=== PATIENT | female | born 1950 | race Caucasian/White ===

== ENCOUNTER → 2016-10-14 | Outpatient (CLI) | payer BC ==
[~2016-10-14] MED LIST: ADVIN25050 INH; ALBUAER2 INH; CPR500 PO; CZR50 PO; METR-163 PO; PARO1TAB27 PO; PRLSR20; PRM625 PO; SYN50 PO
[2016-10-14 12:47] LABS: BASO % 0.3 %; BASO ABS # 0.02 K/uL (0-0.2); COMPLETE YES; EOS % 2.2 %; HEMATOCRIT 38.4 % (37-47); IG% 0.5 %; LYMPH % 28.8 %; LYMPH ABS # 1.83 K/uL (1.2-3.4); MEAN CELL VOLUME 87.7 fL (80-100); MEAN CORPUSCULAR HEMOGLOBIN 30.8 pg (25-34); MEAN CORPUSCULAR HGB CONC 35.2 g/dl (32-36); MEAN PLATELET VOLUME 9.8 fL (7.4-10.4); MONO % 7.1 %; NEUT % 61.1 %; PLATELET COUNT 113 K/uL (130-400); RED BLOOD COUNT 4.38 M/uL (4.2-5.4); WHITE BLOOD COUNT 6.35 K/uL (4.8-10.8)
[2016-10-14 12:57] LABS: ALT/SGPT 42 U/L (12-78); BLOOD UREA NITROGEN 11 mg/dl (7-18); CALCIUM 9.3 mg/dl (8.5-10.1); CARBON DIOXIDE 26 mmol/L (21-32); CHLORIDE 105 mmol/L (98-107); CHOLESTEROL 175 mg/dl (0-200); CREATININE 0.64 mg/dl (0.60-1.20); GLUCOSE 114 mg/dl (70-99); POTASSIUM 3.9 mmol/L (3.5-5.1); SODIUM 140 mmol/L (136-145); TRIGLYCERIDES 73 mg/dl (0-150); VERY LOW DENSITY LIPOPROT CALC 15 mg/dl
[2016-10-14 13:00] LABS: ALKALINE PHOSPHATASE 126 U/L (45-117); AST/SGOT 33 U/L (15-37); CHOLESTEROL/HDL RATIO 2.1; HDL CHOLESTEROL 82 mg/dl; LDL CHOLESTEROL CALCULATED 78 mg/dl
[2016-10-14 13:22] LABS: ESTIMATED AVERAGE GLUCOSE 154 mg/dl; HA1C FLAG Normal (Normal)
== END | disposition home or self-care (01) ==
LOC: C.LAB1850 11:32
PROVIDERS: ATTEND Internal Medicine Pulmonary Disease
DX: J45.909 Unspecified asthma, uncomplicated (principal); E78.5 Hyperlipidemia, unspecified; I10 Essential (primary) hypertension; E03.9 Hypothyroidism, unspecified; K76.0 Fatty (change of) liver, not elsewhere classified; E11.9 Type 2 diabetes mellitus without complications

== ENCOUNTER → 2017-04-23 | Outpatient (CLI) | payer BC ==
--- NOTE | 2017-04-23 14:30 | DIAGNOSTIC IMAGING REPORT ---
THYROID ULTRASONOGRAPHY CLINICAL HISTORY: E78.5 [id number] COMPARISON STUDY: 04/14/2006 FINDINGS: The right lobe of thyroid measures 35 x 12 x 12 mm. The left lobe measures 28 x 9 x 9 mm. But close are heterogeneous in echotexture. No focal nodules are visualized. IMPRESSION: Heterogeneous thyroid echotexture. No focal thyroid nodules are visualized Electronically signed by: Amor Washington M.D. 04/23/2017 2:29 PM Dictated Date/Time: 04/23/2017 2:27 PM
== END | disposition home or self-care (01) ==
LOC: C.ULTR 13:25
PROVIDERS: ATTEND Internal Medicine Pulmonary Disease
DX: E03.9 Hypothyroidism, unspecified (principal); E78.5 Hyperlipidemia, unspecified

== ENCOUNTER → 2017-08-10 | Outpatient (CLI) | payer BC ==
--- NOTE | 2017-08-10 16:34 | DIAGNOSTIC IMAGING REPORT ---
CHEST 2 VIEWS ROUTINE CLINICAL HISTORY: R05 [id number] COMPARISON STUDY: 01/01/2016 FINDINGS: The cardiac and mediastinal contours are normal. There is no evidence of focal pulmonary consolidation. There is no evidence of failure. No pleural effusions are visualized.[ IMPRESSION: No active disease in the chest. Electronically signed by: Amor Washington M.D. 08/10/2017 4:33 PM Dictated Date/Time: 08/10/2017 4:33 PM
== END | disposition home or self-care (01) ==
LOC: C.RAD1850 16:11
PROVIDERS: ATTEND Physician Assistant Medical
DX: R05 Cough (principal)

== ENCOUNTER → 2017-10-20 | Outpatient (CLI) | payer BC ==
[2017-10-20 14:41] LABS: BASO % 0.6 %; BASO ABS # 0.04 K/uL (0-0.2); EOS % 3.6 %; EOS ABS # 0.23 K/uL (0-0.5); HEMATOCRIT 41.2 % (37-47); HEMOGLOBIN 14.3 g/dL (12.0-16.0); IG# 0.02 K/uL (0.00-0.02); LYMPH % 29.9 %; MEAN CELL VOLUME 89.6 fL (80-100); MEAN CORPUSCULAR HEMOGLOBIN 31.1 pg (25-34); MEAN CORPUSCULAR HGB CONC 34.7 g/dl (32-36); MEAN PLATELET VOLUME 10.4 fL (7.4-10.4); MONO % 8.3 %; MONO ABS # 0.53 K/uL (0.11-0.59); NEUT % 57.3 %; NEUT ABS # 3.64 K/uL (1.4-6.5); PLATELET COUNT 112 K/uL (130-400); RED CELL DISTRIBUTION WIDTH CV 13.4 % (11.5-14.5); RED CELL DISTRIBUTION WIDTH SD 43.5 fL (36.4-46.3); WHITE BLOOD COUNT 6.36 K/uL (4.8-10.8)
[2017-10-20 15:03] LABS: ALBUMIN 3.6 gm/dl (3.4-5.0); ALT/SGPT 53 U/L (12-78); AST/SGOT 50 U/L (15-37); BLOOD UREA NITROGEN 11 mg/dl (7-18); CALCIUM 9.1 mg/dl (8.5-10.1); CARBON DIOXIDE 26 mmol/L (21-32); GLUCOSE 131 mg/dl (70-99); POTASSIUM 4.1 mmol/L (3.5-5.1); SODIUM 138 mmol/L (136-145)
[2017-10-20 15:13] LABS: ALKALINE PHOSPHATASE 143 U/L (45-117); CHOLESTEROL 165 mg/dl (0-200); LDL CHOLESTEROL CALCULATED 76 mg/dl; TOTAL PROTEIN 7.9 gm/dl (6.4-8.2)
[2017-10-21 05:49] LABS: HEMOGLOBIN A1C 7.1 % (4.5-5.6)
== END | disposition home or self-care (01) ==
LOC: C.LAB1850 12:47
PROVIDERS: ATTEND Internal Medicine Pulmonary Disease
DX: J45.909 Unspecified asthma, uncomplicated (principal); E78.5 Hyperlipidemia, unspecified; I10 Essential (primary) hypertension; E03.9 Hypothyroidism, unspecified; F32.9 Major depressive disorder, single episode, unspecified; E11.9 Type 2 diabetes mellitus without complications; D69.6 Thrombocytopenia, unspecified; J30.9 Allergic rhinitis, unspecified; R73.9 Hyperglycemia, unspecified; B02.9 Zoster without complications

== ENCOUNTER 2021-04-03 13:46 | Inpatient (IN) ==
[2021-04-03] MEDS ORDERED: ONDANSETRON INJ 2 MG/ML 2 ML VIAL IV STA (14:38)
[2021-04-03] MEDS ORDERED: MoRPHine SULFATE 4 MG/ML 1 ML CARP\\VIAL IV STA (14:38)
--- NOTE | 2021-04-03 14:45 | Emergency Department Note ---
Impression & Plan Fall, Left humeral fracture, Acetabulum fracture, left, Closed fracture of inferior pubic ramus ED Provider Note Provider: Harish Brock MD DATE OF SERVICE: 04/03/2021 CHIEF COMPLAINT: Fall HISTORY OF PRESENT ILLNESS: Patient is a 70-year-old female history of diabetes, hyperlipidemia, hypertension, fatty liver, and thrombocytopenia presenting here today after fall. Patient states she was rushing around to get ready to leave the house and lost her balance and fell onto her left side around 1230. Called her phone around 1:00 and call for help. States has been able to ambulate since then. Denies striking her head to her knowledge denies any loss of consciousness. States she is little short of breath she believes likely to have pain as she has not had anything for pain. Significant pain in the left shoulder, wrist, left hip and groin region. Patient denies any numbness or ti ngling extremities. Denies headache or dizziness. Denies neck pain or chest pain. Denies significant abdominal pain but pain in the left hip and left groin region. Patient denies a history of fractures. Patient states that she is highly allergic to codeine but has received morphine without issue in the past. Patient denies use of aspirin, Plavix, or other anticoagulants. She does report she occasionally has a history of some low platelets from some liver disease. REVIEW OF SYSTEMS: A total of 10 review of systems was obtained and negative except as stated above in the HPI. PAST MEDICAL HISTORY: As noted above MEDICATIONS: Reviewed home medications SOCIAL HISTORY: Lives at home PHYSICAL EXAM: GENERAL: alert and oriented laying on the stretcher appears somewhat uncomfortable. Sling to the left upper arm. Head: normocephalic and atraumatic EYES: No injection, discharge or icterus. NECK: Trachea midline. Supple without posterior cervical tenderness. ENT: Mucous membranes pink and moist. LUNGS: Airway patent. No retractions. Breath sounds clear with good air entry bilaterally. HEART: Regular rate and rhythm. No chest wall tenderness ABDOMEN: Soft and non-tender except for some mild tenderness left inguinal region. Not peritoneal. No rebound or guarding. BACK: No bilateral flank tenderness. SKIN: Acyanotic, warm, dry EXTREMITIES: Without swelling, tenderness or deformity except for some pain in the left hip and inguinal region and pain on ROM of the left hip. Soft compartments of the left lower leg without tenderness of the left knee, lower leg, ankle, or foot. There is minimal tenderness of the left wrist with soft compartments of left forearm and no tenderness of the left elbow. There is significant tenderness and some swelling around the anterior left shoulder with underlying bruises or cuts. 2+ bilateral DP pulses and 2+ left radial pulse. NEUROLOGICAL: No focal deficits. No aphasia. No facial droop or slurred speech. Normal strength and tone in the extremities. Sensation to gross touch normal although complains of little bit of tingling in her left fingers. EK beats. Normal sinus rhythm. No PVC or PAC. No acute ST segment eleva tion or depression noted with a QTC of 462. CONTINUOUS CARDIAC MONITORING: was ordered and showed a heart rate of 70s to 90s bpm in normal sinus rhythm GCS 15. Patient's laboratory studies and imaging reviewed. Differential includes Fracture, dislocation, contusion, intra-abdominal, pneumothorax, intrathoracic, intracranial, neurologic, compartment syndrome, rhabdomyolysis, as well as other pathologies. IMPRESSION/MEDICAL DECISION MAKING: Patient presents with what sounds like mechanical fall to ground today. History of low platelets and continued low today. Given this although no LOC and no significant coagulants to complete a CT of the head of the CT abdomen pelvis. CT hip completed with a question of possible occult fracture in this region given her pain with inconclusive x-rays. Significant left proximal humerus fracture noted. Soft compartments evidence of compartment syndrome on exam here today. Patient denies significant chest wall tenderness I doubt occult rib frac ture or lung or thoracic injury. Blood work here without other significant abnormality. Given some morphine which is tolerable for pain. No neurovascular compromise obvious in the extremities particularly the left upper and lower that are injured beyond some slight tingling in her fingers but feels gross sensation able move the hand well. X-rays and CT results per radiology are reviewed. Patient is not hypotensive and there is no evidence of significant anemia. Patient states she saw Dr. 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 A 2.2 cm anterior displaced left proximal humeral fracture on xray and on the left acetabular fracture and mild inferior pubic rami fracture noted on the CT scans. Discussed with orthopedics this finding who reviewed the films. Patients with both left-sided injuries not in a position to go home. Sling to left upper arm will be applied in a Velcro thumb spica splint to the left arm as there is some slight tenderness in the left snuffbox although no apparent fracture on the x-rays. Orthopedics recommended nonweightbearing status in the left side. States that the shoulder will likely need surgical repair and preplanning CT would be beneficial here; this was ordered for planning purposes for orthopedics. Orthopedics requested the patient be n.p.o. at midnight for possible surgical repair over the next day or 2of the shoulder. Discussed and the patient agrees she is unable go home as she cannot use her left arm or leg. For this and pain control the hospitalist be consulted. DIAGNOSIS: Fall, left proximal humeral fracture, left acetabular fracture, left inferior pubic rami fracture DISPOSITION: Hospitalist will evaluate Patient was agreeable with this plan. Past Med/Surg History Medical History (Updated 04/03/21 @ 18:12 by Harish Brock M.D.) Anemia with low platelet count per pt platelet number is 89 as of 04/2019 Asthma inhaler daily/prn Depression Diabetes mellitus, type 2 per pt diet controlled Fatty liver Hyperlipidemia Hypertension Hypothyroidism Osteoarthritis Shakiness per pt in her hands Surgical History H/O arthroscopy of left knee meniscus repair H/O colonoscopy H/O oral surgery gum sx History of cholecystectomy History of surgery on arm benign lump removed off left arm History of tonsillectomy History of tooth extraction History of total abdominal hysterectomy and bilateral salpingo-oophorectomy History of wisdom tooth extraction Family History Mother Coronary heart disease Other No family history of adverse response to anesthesia Social History Smoking Status: Never smoker Second Hand Exposure: Yes (work environment); Hx Alcohol Use: No Hx Substance Use: No Preferred Language: Georgian Communication Ability: Effective 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 Beliefs That Will Affect Care: None marital status: / Current Living Situation: Alone current occupational status: retired Feels Safe at Home: Yes Assistive Devices: Glasses Allergies Allergies Allergy/AdvReac Type Severity Reaction Status Date / Time codeine Allergy Severe throat Verified 04/03/21 17:51 swelling/hives/dizziness celecoxib Allergy Intermediate Hives Verified 04/03/21 17:51 Sulfa (Sulfonamide Allergy Intermediate Hives Verified 04/03/21 17:51 Antibiotics) Home Meds Home Medications Medication Instructions Recorded Confirmed docusate sodium 100 mg tablet 100 mg PO BID 07/22/19 10/29/20 multivit with 1 tab PO 1200 07/22/19 10/29/20 hawsssnd-gxzm-TZ-lutein 8 mg iron-400 mcg-300 mcg tablet (Centrum Silver Women) Previous Rx's Medication Instructions Recorded levothyroxine 100 mcg capsule 100 mcg PO QAM #90 cap 01/19/20 paroxetine HCl 20 mg tablet 20 mg PO HS #90 tab 01/19/20 albuterol sulfate 90 mcg/actuation 2 puff INH Q6H PRN #8.5 g 04/26/20 aerosol inhaler (Ventolin HFA) atorvastatin 10 mg tablet 10 mg PO QPM #90 tab 04/26/20 fluticasone 500 mcg-salmeterol 50 1 inh INH BID #3 inhaler 04/26/20 mcg/dose blistr powdr for inhalation (Advair Diskus) losartan 100 mg tablet 100 mg PO QAM #90 tab 04/26/20 omeprazole 20 mg capsule,delayed 20 mg PO QAM #90 cap 04/26/20 release Results & Data (ED) Vital Signs Vital Signs - 24 hr 04/03/21 13:57 04/03/21 14:15 04/03/21 14:30 Temperature 37.3 C Temperature Source Oral Pulse Rate 85 91 H 88 Pulse Rate from SpO2 Sensor 90 89 Pulse Rhythm Regular Pulse Strength Normal Respiratory Rate 18 16 17 Respiratory Effort / Characteristics Non-Labored Respiratory Depth Normal Respiratory Pattern Regular Blood Pressure 172/74 H 181/85 H 186/73 H Blood Pressure Mean 106 117 110 Blood Pressure Position Lying Pulse Oximetry 97 97 97 Oxygen Delivery Method Room Air Room Air Room Air Sepsis Recent Fever Within 48 Hours No Sepsis New/Unexplained Change in Mental Status N/A Sepsis Action Taken by Nursing No Action Required 04/03/21 14:38 04/03/21 14:45 04/03/21 15:00 Temperature Temperature Source Pulse Rate 88 75 Pulse Rate from SpO2 Sensor 88 75 Pulse Rhythm Pulse Strength Respiratory Rate 17 19 Respiratory Effort / Characteristics Respiratory Depth Respiratory Pattern Blood Pressure 190/80 H 155/71 H Blood Pressure Mean 116 99 Blood Pressure Position Pulse Oximetry 99 98 96 Oxygen Delivery Method Room Air Room Air Room Air Sepsis Recent Fever Within 48 Hours Sepsis New/Unexplained Change in Mental Status Sepsis Action Taken by Nursing 04/03/21 15:15 Temperature Temperature Source Pulse Rate 79 Pulse Rate from SpO2 Sensor 79 Pulse Rhythm Pulse Strength Respiratory Rate 12 Respiratory Effort / Characteristics Respiratory Depth Respiratory Pattern Blood Pressure 166/73 H Blood Pressure Mean 104 Blood Pressure Position Pulse Oximetry 97 Oxygen Delivery Method Room Air Sepsis Recent Fever Within 48 Hours Sepsis New/Unexplained Change in Mental Status Sepsis Action Taken by Nursing Laboratory Data Result diagrams: 04/03/21 Unknown 04/03/21 Unknown Lab Results 04/03/21 04/03/21 04/03/21 Range/Units 14:38 14:40 14:40 WBC (4.8-10.8) K/uL RBC (4.2-5.4) M/uL Hgb (12.0-16.0) g/dL Hct (37-47) % MCV (80-100) fL MCH (25-34) pg MCHC (32-36) g/dL RDW Std Deviation (36.4-46.3) fL RDW Coeff of Reece (11.5-14.5) % Plt Count (130-400) K/uL MPV (7.4-10.4) fL Immature Gran % (Auto) % Neut % (Auto) % Lymph % (Auto) % [place] % (Auto) % Eos % (Auto) % Baso % (Auto) % Neut # (Auto) (1.4-6.5) K/uL Lymph # (Auto) (1.2-3.4) K/uL [place] # (Auto) (0.11-0.59) K/uL Eos # (Auto) (0-0.5) K/uL Baso # (Auto) (0-0.2) K/uL Immature Gran # (Auto) (0.00-0.02) K/uL Platelet Estimate (Normal) PT (9.0-12.0) Seconds INR (0.9-1.1) Sodium (136-145) mmol/L Potassium (3.5-5.1) mmol/L Chloride (98-107) mmol/L Carbon Dioxide (21-32) mmol/L Anion Gap (3-11) BUN (7-18) mg/dl Creatinine (0.6-1.2) mg/dl Est Cr Clr Drug Dosing ml/min Est GFR ( Amer) ml/min Est GFR (Non-Af Amer) ml/min BUN/Creatinine Ratio (10-20) Glucose (70-99) mg/dl Calcium (8.5-10.1) mg/dl Total Bilirubin (0.2-1) mg/dl AST (15-37) U/L ALT (12-78) U/L Alkaline Phosphatase (45-117) U/L Troponin I < 0.015 (0-0.045) ng/ml Total Protein (6.4-8.2) gm/dl Albumin (3.4-5.0) gm/dl Globulin (2.5-4.0) gm/dl Albumin/Globulin Ratio (0.9-2) COVID-19 Eval Order Covid19 at [facility] SARS-CoV-2 (PCR) NEGATIVE (Negative) 04/03/21 04/03/21 04/03/21 Range/Units Unknown Unknown Unknown WBC 4.73 L (4.8-10.8) K/uL RBC 4.43 (4.2-5.4) M/uL Hgb 13.8 (12.0-16.0) g/dL Hct 39.9 (37-47) % MCV 90.1 (80-100) fL MCH 31.2 (25-34) pg MCHC 34.6 (32-36) g/dL RDW Std Deviation 42.3 (36.4-46.3) fL RDW Coeff of Reece 12.8 (11.5-14.5) % Plt Count 79 L (130-400) K/uL MPV 9.9 (7.4-10.4) fL Immature Gran % (Auto) 2.1 % Neut % (Auto) 67.7 % Lymph % (Auto) 20.9 % [place] % (Auto) 7.2 % Eos % (Auto) 1.7 % Baso % (Auto) 0.4 % Neut # (Auto) 3.20 (1.4-6.5) K/uL Lymph # (Auto) 0.99 L (1.2-3.4) K/uL [place] # (Auto) 0.34 (0.11-0.59) K/uL Eos # (Auto) 0.08 (0-0.5) K/uL Baso # (Auto) 0.02 (0-0.2) K/uL Immature Gran # (Auto) 0.10 H (0.00-0.02) K/uL Platelet Estimate Decreased L (Normal) PT 12.1 H (9.0-12.0) Seconds INR 1.2 H (0.9-1.1) Sodium 140 (136-145) mmol/L Potassium 3.4 L (3.5-5.1) mmol/L Chloride 109 H (98-107) mmol/L Carbon Dioxide 25 (21-32) mmol/L Anion Gap 6.0 (3-11) BUN 8 (7-18) mg/dl Creatinine 0.84 (0.6-1.2) mg/dl Est Cr Clr Drug Dosing 66.1 ml/min Est GFR ( Amer) 82.8 ml/min Est GFR (Non-Af Amer) 71.4 ml/min BUN/Creatinine Ratio 9.8 L (10-20) Glucose 271 H (70-99) mg/dl Calcium 8.6 (8.5-10.1) mg/dl Total Bilirubin 0.5 (0.2-1) mg/dl AST 39 H (15-37) U/L ALT 31 (12-78) U/L Alkaline Phosphatase 106 (45-117) U/L Troponin I (0-0.045) ng/ml Total Protein 7.0 (6.4-8.2) gm/dl Albumin 3.2 L (3.4-5.0) gm/dl Globulin 3.8 (2.5-4.0) gm/dl Albumin/Globulin Ratio 0.8 L (0.9-2) COVID-19 Eval Order SARS-CoV-2 (PCR) (Negative) Administered Medications Discontinued Medications Ioversol (Optiray 320 100ml) 93 ml IV ONCE ONE Stop: 04/03/21 16:15 Last Admin: 04/03/21 16:14 Dose: 93 ml Documented by: [id number] Morphine Sulfate (Morphine Sulfate 4 Mg/Ml 1 Ml Carp\Vial) 4 mg IV NOW STA Stop: 04/03/21 14:39 Last Admin: 04/03/21 14:52 Dose: 4 mg Documented by: [id number] Morphine Sulfate (Morphine Sulfate 2 Mg/Ml Carp) 2 mg IV NOW STA Stop: 04/03/21 16:16 Last Admin: 04/03/21 16:39 Dose: 2 mg Documented by: [id number] Ondansetron HCl (Ondansetron Inj 2 Mg/Ml 2 Ml Vial) 4 mg IV NOW STA Stop: 04/03/21 14:39 Last Admin: 04/03/21 14:52 Dose: 4 mg Documented by: [id number] Imaging Data Radiologist's Impression: Chest X-Ray 04/03/21 14:38 XR chest 1V portable INDICATION: MN ^fall. TECHNIQUE: Single frontal radiograph of the chest was obtained. Comparison: Comparison is made to chest one view 09/29/2006 FINDINGS: No lines and tubes are seen. The cardiomediastinal silhouette is normal. The lungs are clear. No evidence of pleural effusion or pneumothorax. IMPRESSION: No acute chest disease. ACT 112: Negative or not required by law. Electronically signed by: Stone Stout M.D. 04/03/2021 4:17 PM Elbow X-Ray 04/03/21 14:39 XR elbow LT min 3V routine CLINICAL HISTORY: fall COMPARISON: None FINDINGS: Alignment of the left elbow is anatomic. There is no acute fracture. There is no joint effusion. IMPRESSION: No acute fracture or joint effusion of the left elbow. ACT 112: Negative or not required by law. Electronically signed by: Jefe Hong M.D. 04/03/2021 4:17 PM Hip/Pelvis X-Ray 04/03/21 14:39 XR hip LT 2V w pelvis CLINICAL HISTORY: fall, pain COMPARISON: None FINDINGS: The sacroiliac joints and symphysis pubis are intact. No definite acute fracture is identified within the pelvis or hips. There is mild bilateral hip osteoarthritis. There is an equivocal fracture of the left inferior pubic ramus. IMPRESSION: No definite acute fracture within the pelvis or hips. Equivocal acute fracture of the left inferior pubic ramus. ACT 112: Negative or not required by law. Electronically signed by: Jefe Hong M.D. 04/03/2021 4:21 PM Shoulder X-Ray 04/03/21 14:39 XR shoulder LT min 2V routine CLINICAL HISTORY: fall, pain COMPARISON: None FINDINGS: Note is made of an acute comminuted displaced transverse left humeral neck fracture which extends through the humeral head. Greater tuberosity is displaced. The humeral shaft is displaced 2.8 cm anteriorly with respect to the humeral head. Alignment of the left glenohumeral joint remains anatomic. Moderate acromioclavicular joint osteoarthritis is present. IMPRESSION: Acute significantly displaced comminuted proximal left humeral fracture, as described above. Humeral shaft displaced at least 2.2 cm anteriorly with respect to the humeral head. ACT 112: Negative or not required by law. Electronically signed by: Jefe Hong M.D. 04/03/2021 4:16 PM Wrist X-Ray 04/03/21 14:39 LEFT WRIST 3 VIEWS CLINICAL HISTORY: Fall with left wrist injury. FINDINGS: 3 views of the left wrist are obtained. No prior studies are available for comparison at the time of dictation. The skeletal structures are osteopenic. No acute fracture is identified. Mild degenerative narrowing is seen at the radiocarpal articulation. Mild osteoarthritic change is also seen at the first carpometacarpal joint. Soft tissue edema is present around the wrist. IMPRESSION: Soft tissue swelling with no fracture identified. If there strong clinical concern for occult fracture consider short-term radiographic follow-up. Electronically signed by: Salomón Rubio M.D. 04/03/2021 4:21 PM Abdomen/Pelvis CT 04/03/21 15:32 CT abd pelvis IV con only CLINICAL INDICATION: MN ^B5 ^fall, L hip groin pain, low plts. TECHNIQUE: Helical axial images of the abdomen and pelvis were obtained and displayed at 5 and 1 mm intervals. Automated dose lowering techniques and/or adjustment according to patient size were utilized for this exam. This exam was performed with intravenous contrast. COMPARISON: None available at the time of this dictation. FINDINGS: Lower chest: Biatrial enlargement is noted. Lungs are unremarkable. Liver: Nodular contour of the liver is seen compatible with cirrhosis. Gallbladder and biliary tree: Patient is status post cholecystectomy. Physiologic prominence of the biliary ducts is noted. Pancreas: Fatty replacement of the pancreas is seen. Spleen: Splenomegaly is noted, the spleen measures Adrenals: Unremarkable. Kidneys and ureters: Unremarkable. Bladder: Unremarkable. Bowel: A hiatal hernia is seen. The appendix is normal. Lymph nodes Retroperitoneal: Prominent sara hepatis lymph nodes are seen measuring up to 9 mm in short axis. Subcentimeter retroperitoneal nodes are noted. Mesenteric: Unremarkable. Pelvic: Unremarkable. Reproductive organs: Unremarkable. Peritoneum: Normal Vessels: Atherosclerotic calcifications are seen. Abdominal wall: Unremarkable. Bones: Degenerative changes in the visualized spine. IMPRESSION: 1. No evidence of acute abnormality in this patient with left hip pain. No intra-abdominal hematoma. 2. Cirrhosis with prominent sara hepatis lymph nodes. 3. Additional findings as above. ACT 112: Negative or not required by law. Electronically signed by: Stone Stout M.D. 04/03/2021 4:[address] 04/03/21 15:32 CT head/brain wo con Clinical Indication: MN ^fall. Technique: Contiguous axial CT images of the head were acquired from the base of the skull to the vertex without intravenous contrast administration. Images were viewed in brain, subdural and bone windows. Automated dose lowering techniques and/or adjustment according to patient size were utilized for this exam. Comparison: None available at the time of this dictation. Findings: The ventricles, basal cisterns, and cerebral sulci are normal. There is no acute intracranial hemorrhage or evidence of acute territorial infarction. Neither mass effect, shift of the midline structures, nor abnormal extra-axial fluid collections are shown. Imaged portions of the paranasal sinuses and mastoid air cells are clear. The orbits appear normal. There are no acute fractures of the calvaria or scalp swe lling. Impression: No acute intracranial hemorrhage, evidence of acute territorial infarction, or other acute intracranial disease process. ACT 112: Negative or not required by law. Electronically signed by: Stone Stout M.D. 04/03/2021 4:[address] 04/03/21 15:55 CT hip LT wo con CLINICAL HISTORY: Left hip pain following fall. COMPARISON STUDY: Pelvis and left hip radiographs performed earlier today. TECHNIQUE: Axial images of the left hip were obtained without IV contrast. Sagittal and coronal reconstructions were viewed. Automated exposure control was utilized for the study. A dose lowering technique was utilized adhering to the principles of ALARA. FINDINGS: Please note that the CT of the abdomen and pelvis will be reported separately. Note is made of an acute comminuted nondisplaced fracture the anterior wall of the left acetabulum. There is an additional acute nondisplaced fracture of the left inferior pubic ramus. No acute proximal left femoral fracture is noted. Alignment of the left hip is anatomic. Mild left hip osteoarthritis. No large pelvic hematoma is identified. There may be a small amount of intramuscular hemorrhage within the left obturator internus. IMPRESSION: 1. Acute comminuted nondisplaced fracture the anterior wall of the left acetabulum. Acute nondisplaced fracture of the left inferior pubic ramus. 2. No acute proximal left femoral fracture. 3. Suspected small amount of intramuscular hemorrhage within the left obturator internus. ACT 112: Negative or not required by law. Electronically signed by: Jefe Hong M.D. 04/03/2021 4:48 PM Discharge Plan Visit Data Chief Complaint: Fall ED Provider: Harish Brock Discharge Problem: Fall, Left humeral fracture, Acetabulum fracture, left, Closed fracture of inferior pubic ramus Patient Disposition: Being Evaluated by Hospitalist Forms Stand Alone Forms: My [facility] [address] [employer] Prescriptions Prescriptions: No Action albuterol sulfate [Ventolin HFA] 90 mcg/actuation HFA aerosol inhaler 2 puff INH Q6H PRN (Reason: shortness of breath or wheezing) Qty: 8.5 RF: 3 atorvastatin 10 mg tablet 10 mg PO QPM Qty: 90 RF: 3 fluticasone propion-salmeterol [Advair Diskus] 500-50 mcg/dose blister with device 1 inh INH BID Qty: 3 RF: 3 losartan 100 mg tablet 100 mg PO QAM Qty: 90 RF: 3 omeprazole 20 mg capsule,delayed release(DR/EC) 20 mg PO QAM Qty: 90 RF: 3 levothyroxine 100 mcg capsule 100 mcg PO QAM Qty: 90 RF: 3 paroxetine HCl 20 mg tablet 20 mg PO HS Qty: 90 RF: 3 docusate sodium 100 mg Tablet 100 mg PO BID RF: 0 Centrum Silver Women 8 mg iron-400 mcg-300 mcg Tablet 1 tab PO 1200 RF: 0 Referrals Referrals: Piyush Casanova MD [Primary Care Provider] -
[2021-04-03 14:59] LABS: Albumin Level 3.2 gm/dl (3.4-5.0); BUN Creatinine Ratio 9.8 (10-20); Calcium 8.6 mg/dl (8.5-10.1); Creatinine Clr Calc Pharmacy 66.1 ml/min; Est GFR (African American) 82.8 ml/min; Est GFR (Non-African American) 71.4 ml/min; Potassium 3.4 mmol/L (3.5-5.1)
[2021-04-03 15:01] LABS: Albumin Globulin Ratio 0.8 (0.9-2); Bilirubin,Total 0.5 mg/dl (0.2-1); Globulin 3.8 gm/dl (2.5-4.0)
[2021-04-03 15:18] LABS: INR 1.2 (0.9-1.1); Prothrombin Time 12.1 Seconds (9.0-12.0)
[2021-04-03 15:22] LABS: Basophils # (auto) 0.02 K/uL (0-0.2); Basophils % (auto) 0.4 %; Eosinophils # (auto) 0.08 K/uL (0-0.5); Eosinophils % (auto) 1.7 %; Hematocrit (blood only) 39.9 % (37-47); Hemoglobin 13.8 g/dL (12.0-16.0); Immature Granulocytes % (auto) 2.1 %; Lymphocytes # (auto) 0.99 K/uL (1.2-3.4); Lymphocytes % (auto) 20.9 %; Mean Corpuscular Hemoglobin 31.2 pg (25-34); Mean Corpuscular Hgb Conc 34.6 g/dL (32-36); Mean Corpuscular Volume 90.1 fL (80-100); Mean Platelet Volume 9.9 fL (7.4-10.4); Monocytes # (auto) 0.34 K/uL (0.11-0.59); Monocytes % (auto) 7.2 %; Neutrophils % (auto) 67.7 %; Platelet Count 79 K/uL (130-400); Platelet Estimate Decreased (Normal); RDW Coefficient of Variation 12.8 % (11.5-14.5); RDW Standard Deviation 42.3 fL (36.4-46.3); Red Blood Count 4.43 M/uL (4.2-5.4); White Blood Count 4.73 K/uL (4.8-10.8)
--- NOTE | 2021-04-03 16:06 | Electrocardiogram Report ---
Test Reason : Blood Pressure : / mmHG Vent. 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
[2021-04-03] MEDS ORDERED: OPTIRAY 320 100ml IV ONE (16:14)
[2021-04-03] MEDS ORDERED: MoRPHine SULFATE 2 MG/ML CARP IV STA (16:15)
--- NOTE | 2021-04-03 16:18 | XRay Report ---
XR shoulder LT min 2V routine CLINICAL HISTORY: fall, pain COMPARISON: None FINDINGS: Note is made of an acute comminuted displaced transverse left humeral neck fracture which extends through the humeral head. Greater tuberosity is displaced. The humeral shaft is displaced 2.8 cm anteriorly with respect to the humeral head. Alignment of the left glenohumeral joint remains chavo tomic. Moderate acromioclavicular joint osteoarthritis is present. IMPRESSION: Acute significantly displaced comminuted proximal left humeral fracture, as described abo ve. Humeral shaft displaced at least 2.2 cm anteriorly with respect to the humeral head. ACT 112: Negative or not required by law. Electronically signed by: Jefe Hong M.D. 04/03/2021 4:16 PM
--- NOTE | 2021-04-03 16:18 | XRay Report ---
XR elbow LT min 3V routine CLINICAL HISTORY: fall COMPARISON: None FINDINGS: Alignment of the left elbow is anatomic. There is no acute fracture. There is no joint eff usion. IMPRESSION: No acute fracture or joint effusion of the left elbow. ACT 112: Negative or not required by law. Electronically signed by: Jefe Hong M.D. 04/03/2021 4:17 PM
--- NOTE | 2021-04-03 16:18 | XRay Report ---
XR chest 1V portable INDICATION: MN ^fall. TECHNIQUE: Single frontal radiograph of the chest was obtained. Comparison: Comparison is made to chest one view 09/29/2006 FINDINGS: No lines and tubes are seen. The cardiomediastinal silhouette is normal. The lungs are clear. No evid ence of pleural effusion or pneumothorax. IMPRESSION: No acute chest disease. ACT 112: Negative or not required by law. Electronically signed by: Stone Stout M.D. 04/03/2021 4:17 PM
--- NOTE | 2021-04-03 16:22 | XRay Report ---
XR hip LT 2V w pelvis CLINICAL HISTORY: fall, pain COMPARISON: None FINDINGS: The sacroiliac joints and symphysis pubis are intact. No definite acute fracture is identi fied within the pelvis or hips. There is mild bilateral hip osteoarthritis. There is an equivocal fra cture of the left inferior pubic ramus. IMPRESSION: No definite acute fracture within the pelvis or hips. Equivocal acute fracture of the lef t inferior pubic ramus. ACT 112: Negative or not required by law. Electronically signed by: Jefe Hong M.D. 04/03/2021 4:21 PM
--- NOTE | 2021-04-03 16:22 | XRay Report ---
LEFT WRIST 3 VIEWS CLINICAL HISTORY: Fall with left wrist injury. FINDINGS: 3 views of the left wrist are obtained. No prior studies are available for comparison at th e time of dictation. The skeletal structures are osteopenic. No acute fracture is identified. Mild de generative narrowing is seen at the radiocarpal articulation. Mild osteoarthritic change is also seen at the first carpometacarpal joint. Soft tissue edema is present around the wrist. IMPRESSION: Soft tissue swelling with no fracture identified. If there strong clinical concern for oc cult fracture consider short-term radiographic follow-up. Electronically signed by: Salomón Rubio M.D. 04/03/2021 4:21 PM
--- NOTE | 2021-04-03 16:34 | CT Scan Report ---
CT head/brain wo con Clinical Indication: MN ^fall. Technique: Contiguous axial CT images of the head were acquired from the base of the skull to the stefan jarred without intravenous contrast administration. Images were viewed in brain, subdural and bone [facility]. Automated dose lowering techniques and/or adjustment according to patient size were utilized for this exam. Comparison: None available at the time of this dictation. Findings: The ventricles, basal cisterns, and cerebral sulci are normal. There is no acute intracranial hemorrh age or evidence of acute territorial infarction. Neither mass effect, shift of the midline structures , nor abnormal extra-axial fluid collections are shown. Imaged portions of the paranasal sinuses and mastoid air cells are clear. The orbits appear normal. There are no acute fractures of the calvaria or scalp swelling. Impression: No acute intracranial hemorrhage, evidence of acute territorial infarction, or other acute intracrani al disease process. ACT 112: Negative or not required by law. Electronically signed by: Stone Stout M.D. 04/03/2021 4:33 PM
--- NOTE | 2021-04-03 16:41 | CT Scan Report ---
CT abd pelvis IV con only CLINICAL INDICATION: MN ^B5 ^fall, L hip groin pain, low plts. TECHNIQUE: Helical axial images of the abdomen and pelvis were obtained and displayed at 5 and 1 mm i ntervals. Automated dose lowering techniques and/or adjustment according to patient size were utilize d for this exam. This exam was performed with intravenous contrast. COMPARISON: None available at the time of this dictation. FINDINGS: Lower chest: Biatrial enlargement is noted. Lungs are unremarkable. Liver: Nodular contour of the liver is seen compatible with cirrhosis. Gallbladder and biliary tree: Patient is status post cholecystectomy. Physiologic prominence of the b iliary ducts is noted. Pancreas: Fatty replacement of the pancreas is seen. Spleen: Splenomegaly is noted, the spleen measures Adrenals: Unremarkable. Kidneys and ureters: Unremarkable. Bladder: Unremarkable. Bowel: A hiatal hernia is seen. The appendix is normal. Lymph nodes Retroperitoneal: Prominent sara hepatis lymph nodes are seen measuring up to 9 mm in short axis. Sub centimeter retroperitoneal nodes are noted. Mesenteric: Unremarkable. Pelvic: Unremarkable. Reproductive organs: Unremarkable. Peritoneum: Normal Vessels: Atherosclerotic calcifications are seen. Abdominal wall: Unremarkable. Bones: Degenerative changes in the visualized spine. IMPRESSION: 1. No evidence of acute abnormality in this patient with left hip pain. No intra-abdominal hematoma. 2. Cirrhosis with prominent sara hepatis lymph nodes. 3. Additional findings as above. ACT 112: Negative or not required by law. Electronically signed by: Stone Stout M.D. 04/03/2021 4:39 PM
--- NOTE | 2021-04-03 16:49 | CT Scan Report ---
CT hip LT wo con CLINICAL HISTORY: Left hip pain following fall. COMPARISON STUDY: Pelvis and left hip radiographs performed earlier today. TECHNIQUE: Axial images of the left hip were obtained without IV contrast. Sagittal and coronal recon structions were viewed. Automated exposure control was utilized for the study. A dose lowering techn ique was utilized adhering to the principles of ALARA. FINDINGS: Please note that the CT of the abdomen and pelvis will be reported separately. Note is made of an acute comminuted nondisplaced fracture the anterior wall of the left acetabulum. There is an a dditional acute nondisplaced fracture of the left inferior pubic ramus. No acute proximal left femora l fracture is noted. Alignment of the left hip is anatomic. Mild left hip osteoarthritis. No large pe lvic hematoma is identified. There may be a small amount of intramuscular hemorrhage within the left obturator internus. IMPRESSION: 1. Acute comminuted nondisplaced fracture the anterior wall of the left acetabulum. Acute nondisplace d fracture of the left inferior pubic ramus. 2. No acute proximal left femoral fracture. 3. Suspected small amount of intramuscular hemorrhage within the left obturator internus. ACT 112: Negative or not required by law. Electronically signed by: Jefe Hong M.D. 04/03/2021 4:48 PM
--- NOTE | 2021-04-03 17:59 | History & Physical Report ---
Date of Service April 03, 2021 Assessment & Plan (1) Left humeral fracture: Plan: Comminuted and displaced acute proximal left humeral fracture - Acute s/p fall as above - Pain control- Tylenol 650mg PO q6 scheduled, Oxy IR 5mg PO q6 prn, Morphine 3mg IV PRN severe pain, Valium 1mg PO for spasms - shoulder splint to be placed in EMD - ICE therapy - NWB- PT/OT consulted - Orthopaedics consulted - [facility] DR. Zamora (2) Acetabulum fracture, left: Plan: NWB to left leg and foot - Immobilizer placed to left leg in EMD - PT/OT consult placed - pain control and IC therapy as above - Orthopaedics consulted- [facility] Dr. Zamora - SCD and TEDS (3) Closed fracture of inferior pubic ramus: Plan: As above (4) Vascular disease: Plan: Mesenteric stenosis as per HPI - Continues statin - No abdominal angina with food consumption (5) Diabetes mellitus, type II: Plan: Not on any agents as outpatient - diet controlled - BG q6 hours- coverage if >180 (6) Esophageal reflux: Plan: Protonix changed to IV 40 mg daily can change back to PO once cleared (7) Hyperlipidemia: Plan: As above continue statin (8) Hypertension: Plan: Hold ARB at this time - for surgical evaluation - Goal <180 - can restart following postoperative - usually well controlled, elevated at 150 likely related to acute pain (9) Nonalcoholic fatty liver disease: Plan: Stable- no evidence of failure or encephalopathy - CMP daily - INR daily (10) Thrombocytopenia: Plan: Chronic - likely related to her GOOD - follow - monitor with chemoprophylaxis when initiated History of Present Illness Primary Care Provider: Piyush Casanova MD 70 YOF with past medical history of: Mild asthma, Constipation, GOOD cirrhosis, Hypothyroidism, HTN, GERD, thrombocytopenia, mesenteric and proximal celiac stenosis, pre-diabetic now on vegan diet with 30-40 lb weight loss and most recent A1c~5. The patient comes to the emergency room today after falling at home. The patient reports that she was rushing and tripped going from carpeting to hard floor and fell on her left side with her left arm extended. In the EMD the patient had multiple images performed, which revealed comminuted humeral neck fracture with displaced greater tuberosity. Her Hip CT revealed acute comminuted non-displaced fracture of the anterior wall of the left acetabulum and nondisplaced fracture of the inferior pubic ramus. The patient was given morphine for pain. EMD physician discussed the case with from orthopaedics- [facility] of the left leg and arm, sling of shoulder. Patient will be admitted for pain control, await Orthopaedics evaluation and surgical correction if needed. Patient denies any cardiovascular disease or limiting of activity or dyspnea/chest pain with exertion. She has mild asthma for which she is on Albuterol and Advair. She reports she rarely needs to use her MUMTAZ only if she has a cold. She does not wake up at night with dyspnea and has no orthopnea. As above she has changed her diet and had planned weight loss which effectively decreased her HGBA1c. She follows with gastroenterology for her GOOD and her LFTs are normal on todays presentation with an INR of 1.2 and does not exhibit any evidence of encephalopathy. Her platelet counts are normally in the 80-100 range, this is followed by her PCP, she endorses some bruising but no overt bleeding or blood in her stools or urine. Overall she generally feels well and has no functional restrictions. She currently lives at home by herself and her son is close. She is open to rehab facility if she needs to following this admission. Patient has received her COVID vaccine and her COVID test on admission is: NEGATIVE Allergies Allergy/AdvReac Type Severity Reaction Status Date / Time codeine Allergy Severe throat Verified 04/03/21 17:51 swelling/hives/dizziness celecoxib Allergy Intermediate Hives Verified 04/03/21 17:51 Sulfa (Sulfonamide Allergy Intermediate Hives Verified 04/03/21 17:51 Antibiotics) Home Medications Medication Instructions Recorded Confirmed Type docusate sodium 100 mg tablet 100 mg PO BID 07/22/19 04/03/21 History multivit with 1 tab PO 1200 07/22/19 04/03/21 History hytgtlde-sffu-RB-lutein 8 mg iron-400 mcg-300 mcg tablet (Centrum Silver Women) levothyroxine 100 mcg capsule 100 mcg PO QAM #90 cap 01/19/20 04/03/21 Rx paroxetine HCl 20 mg tablet 20 mg PO HS #90 tab 01/19/20 04/03/21 Rx albuterol sulfate 90 mcg/actuation 2 puff INH Q6H PRN #8.5 g 04/26/20 04/03/21 Rx aerosol inhaler (Ventolin HFA) atorvastatin 10 mg tablet 10 mg PO QPM #90 tab 04/26/20 04/03/21 Rx fluticasone 500 mcg-salmeterol 50 1 inh INH BID #3 inhaler 04/26/20 04/03/21 Rx mcg/dose blistr powdr for inhalation (Advair Diskus) losartan 100 mg tablet 100 mg PO QAM #90 tab 04/26/20 04/03/21 Rx omeprazole 20 mg capsule,delayed 20 mg PO QAM #90 cap 04/26/20 04/03/21 Rx release Past Med/Surg History Medical History (Updated 04/03/21 @ 18:12 by Harish Brock M.D.) Anemia with low platelet count per pt platelet number is 89 as of 04/2019 Asthma inhaler daily/prn Depression Diabetes mellitus, type 2 per pt diet controlled Fatty liver Hyperlipidemia Hypertension Hypothyroidism Osteoarthritis Shakiness per pt in her hands Surgical History H/O arthroscopy of left knee meniscus repair H/O colonoscopy H/O oral surgery gum sx History of cholecystectomy History of surgery on arm benign lump removed off left arm History of tonsillectomy History of tooth extraction History of total abdominal hysterectomy and bilateral salpingo-oophorectomy History of wisdom tooth extraction Family History Mother Coronary heart disease Other No family history of adverse response to anesthesia Social History Smoking Status: Never smoker Second Hand Exposure: Yes (work environment); Hx Alcohol Use: No Hx Substance Use: No Preferred Language: Portuguese Communication Ability: Effective 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 Beliefs That Will Affect Care: None marital status: / Current Living Situation: Alone current occupational status: retired Feels Safe at Home: Yes Assistive Devices: Glasses Review of Systems Review of Systems: REVIEW OF SYSTEMS: Constitutional: No fever, sweats or chills Eyes: No diplopia, no worsening or blurred vision ENT: normal hearing, no trouble swallowing Respiratory: No cough, sputum, dyspnea at rest or on exertion Cardiovascular: No chest pain, tightness or palpitations Abdomen: (+) constipation, No pain, nausea, vomiting, diarrhea Musculoskeletal: (+) left arm, shoulder, flank, and hip pain. NO calf pain, swelling Neurologic: No weakness, numbness/tingling, or balance problems Psychiatric: No anxiety or depression Skin: No rash or itch Physical Exam Physical Exam: PHYSICAL EXAM: General: awake, alert, no apparent distress Head: Normocephalic, atraumatic ENT: PERRL, EOMI, no pharyngeal exudate, mucous membranes moist Neuro: AAO x 3, speech clear and appropriate, strength intact bilaterally 5/5, sensation intact and equal all extremities and dermatomes, no pronator drift Chest: equal rise and fall of the chest, no accessory muscle use, no heaves or thrills, Clear to auscultation, on room air, Cardiac: Regular rate and rhythm, telemetry reviewed-NSR, skin warm dry, cap refill <3 seconds, peripheral pulses +2 no JVD, grade I systolic murmur best heard RSB, no edema GI: NABS x 4 quadrants, soft, nontender to palpation, no rebound, guarding or tenderness : Spontaneously voiding with purewick in place, no pain, no CVA tenderness, Extremities: no deformities, bruising noted, no hematomas. Psych: Normal mood and affect Skin: no rash or erythema Results & Data Results & Data ([facility]) Vital Signs (Past 12 Hours) Vital Signs Temp Pulse Resp BP Pulse Ox 04/03/21 15:15 79 12 166/73 H 97 04/03/21 15:00 75 19 155/71 H 96 04/03/21 14:45 88 17 190/80 H 98 04/03/21 14:38 99 04/03/21 14:30 88 17 186/73 H 97 04/03/21 14:15 91 H 16 181/85 H 97 04/03/21 13:57 37.3 C 85 18 172/74 H 97 Laboratory Results Abnormal lab results 04/03/21 04/03/21 04/03/21 Range/Units Unknown Unknown Unknown WBC 4.73 L (4.8-10.8) K/uL Plt Count 79 L (130-400) K/uL Lymph # (Auto) 0.99 L (1.2-3.4) K/uL Immature Gran # (Auto) 0.10 H (0.00-0.02) K/uL Platelet Estimate Decreased L (Normal) PT 12.1 H (9.0-12.0) Seconds INR 1.2 H (0.9-1.1) Potassium 3.4 L (3.5-5.1) mmol/L Chloride 109 H (98-107) mmol/L BUN/Creatinine Ratio 9.8 L (10-20) Glucose 271 H (70-99) mg/dl AST 39 H (15-37) U/L Albumin 3.2 L (3.4-5.0) gm/dl Albumin/Globulin Ratio 0.8 L (0.9-2) Diagnostic Findings Chest X-Ray 04/03/21 14:38 XR chest 1V portable INDICATION: MN ^fall. TECHNIQUE: Single frontal radiograph of the chest was obtained. Comparison: Comparison is made to chest one view 09/29/2006 FINDINGS: No lines and tubes are seen. The cardiomediastinal silhouette is normal. The lungs are clear. No evidence of pleural effusion or pneumothorax. IMPRESSION: No acute chest disease. ACT 112: Negative or not required by law. Electronically signed by: Stone Stout M.D. 04/03/2021 4:17 PM Elbow X-Ray 04/03/21 14:39 XR elbow LT min 3V routine CLINICAL HISTORY: fall COMPARISON: None FINDINGS: Alignment of the left elbow is anatomic. There is no acute fracture. There is no joint effusion. IMPRESSION: No acute fracture or joint effusion of the left elbow. ACT 112: Negative or not required by law. Electronically signed by: Jefe Hong M.D. 04/03/2021 4:17 PM Hip/Pelvis X-Ray 04/03/21 14:39 XR hip LT 2V w pelvis CLINICAL HISTORY: fall, pain COMPARISON: None FINDINGS: The sacroiliac joints and symphysis pubis are intact. No definite acute fracture is identified within the pelvis or hips. There is mild bilateral hip osteoarthritis. There is an equivocal fracture of the left inferior pubic ramus. IMPRESSION: No definite acute fracture within the pelvis or hips. Equivocal acut e fracture of the left inferior pubic ramus. ACT 112: Negative or not required by law. Electronically signed by: Jefe Hong M.D. 04/03/2021 4:21 PM Shoulder X-Ray 04/03/21 14:39 XR shoulder LT min 2V routine CLINICAL HISTORY: fall, pain COMPARISON: None FINDINGS: Note is made of an acute comminuted displaced transverse left humeral neck fracture which extends through the humeral head. Greater tuberosity is displaced. The humeral shaft is displaced 2.8 cm anteriorly with respect to the humeral head. Alignment of the left glenohumeral joint remains anatomic. Moderate acromioclavicular joint osteoarthritis is present. IMPRESSION: Acute significantly displaced comminuted proximal left humeral fracture, as described above. Humeral shaft displaced at least 2.2 cm anteriorly with respect to the humeral head. ACT 112: Negative or not required by law. Electronically signed by: Jefe Hong M.D. 04/03/2021 4:16 PM Wrist X-Ray 04/03/21 14:39 LEFT WRIST 3 VIEWS CLINICAL HISTORY: Fall with left wrist injury. FINDINGS: 3 views of the left wrist are obtained. No prior studies are available for comparison at the time of dictation. The skeletal structures are osteopenic. No acute fracture is identified. Mild degenerative narrowing is seen at the radiocarpal articulation. Mild osteoarthritic change is also seen at the first carpometacarpal joint. Soft tissue edema is present around the wrist. IMPRESSION: Soft tissue swelling with no fracture identified. If there strong clinical concern for occult fracture consider short-term radiographic follow-up. Electronically signed by: Salomón Rubio M.D. 04/03/2021 4:21 PM Abdomen/Pelvis CT 04/03/21 15:32 CT abd pelvis IV con only CLINICAL INDICATION: MN ^B5 ^fall, L hip groin pain, low plts. TECHNIQUE: Helical axial images of the abdomen and pelvis were obtained and displayed at 5 and 1 mm intervals. Automated dose lowering techniques and/or adjustment according to patient size were utilized for this exam. This exam was performed with intravenous contrast. COMPARISON: None available at the time of this dictation. FINDINGS: Lower chest: Biatrial enlargement is noted. Lungs are unremarkable. Liver: Nodular contour of the liver is seen compatible with cirrhosis. Gallbladder and biliary tree: Patient is status post cholecystectomy. Physiologic prominence of the biliary ducts is noted. Pancreas: Fatty replacement of the pancreas is seen. Spleen: Splenomegaly is noted, the spleen measures Adrenals: Unremarkable. Kidneys and ureters: Unremarkable. Bladder: Unremarkable. Bowel: A hiatal hernia is seen. The appendix is normal. Lymph nodes Retroperitoneal: Prominent sara hepatis lymph nodes are seen measuring up to 9 mm in short axis. Subcentimeter retroperitoneal nodes are noted. Mesenteric: Unremarkable. Pelvic: Unremarkable. Reproductive organs: Unremarkable. Peritoneum: Normal Vessels: Atherosclerotic calcifications are seen. Abdominal wall: Unremarkable. Bones: Degenerative changes in the visualized spine. IMPRESSION: 1. No evidence of acute abnormality in this patient with left hip pain. No intra-abdominal hematoma. 2. Cirrhosis with prominent sara hepatis lymph nodes. 3. Additional findings as above. ACT 112: Negative or not required by law. Electronically signed by: Stone Stout M.D. 04/03/2021 4:[address] 04/03/21 15:32 CT head/brain wo con Clinical Indication: MN ^fall. Technique: Contiguous axial CT images of the head were acquired from the base of the skull to the vertex without intravenous contrast administration. Images were viewed in brain, subdural and bone windows. Automated dose lowering techniques and/or adjustment according to patient size were utilized for this exam. Comparison: None available at the time of this dictation. Findings: The ventricles, basal cisterns, and cerebral sulci are normal. There is no acute intracranial hemorrhage or evidence of acute territorial infarction. Neither mass effect, shift of the midline structures, nor abnormal extra-axial fluid collections are shown. Imaged portions of the paranasal sinuses and mastoid air cells are clear. The orbits appear normal. There are no acute fractures of the calvaria or scalp swelling. Impression: No acute intracranial hemorrhage, evidence of acute territorial infarction, or other acute intracranial disease process. ACT 112: Negative or not required by law. Electronically signed by: Stone Stout M.D. 04/03/2021 4:[address] 04/03/21 15:55 CT hip LT wo con CLINICAL HISTORY: Left hip pain following fall. COMPARISON STUDY: Pelvis and left hip radiographs performed earlier today. TECHNIQUE: Axial images of the left hip were obtained without IV contrast. Sagittal and coronal reconstructions were viewed. Automated exposure control was utilized for the study. A dose lowering technique was utilized adhering to the principles of ALARA. FINDINGS: Please note that the CT of the abdomen and pelvis will be reported separately. Note is made of an acute comminuted nondisplaced fracture the anterior wall of the left acetabulum. There is an additional acute nondisplaced fracture of the left inferior pubic ramus. No acute proximal left femoral fracture is noted. Alignment of the left hip is anatomic. Mild left hip osteoarthritis. No large pelvic hematoma is identified. There may be a small amount of intramuscular hemorrhage within the left obturator internus. IMPRESSION: 1. Acute comminuted nondisplaced fracture the anterior wall of the left acetabulum. Acute nondisplaced fracture of the left inferior pubic ramus. 2. No acute proximal left femoral fracture. 3. Suspected small amount of intramuscular hemorrhage within the left obturator internus. ACT 112: Negative or not required by law. Electronically signed by: Jefe Hong M.D. 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 Abnormal ECG- last comparison noted from 2006 Code Status & VTE Plan Code Status CODE: LIMITED- CPR and defibrillation- Does not want intubated or placed on Ventilator She understands this may be needed for surgical correction of her shoulder VTE: TEDs, SCDS, chemoprophylaxis following orthopaedics evaluation VTE Prophylaxis Plan VTE Prophylaxis will be ordered: Yes PG Care Time/CCT Total # of Minutes Spent Total Time Spent with Patient: Total time spent is greater than 50% in coordination of care (as documented) at patient's floor/unit and/or counseling patient: Coding Level of Care Code 24539 Initial Inpt Care Lvl 3 Diagnoses Left humeral fracture S42.302A Encounter type: initial encounter Fracture alignment: displaced Fracture type: closed Humerus Location: proximal Acetabulum fracture, left S32.415A Encounter type: initial encounter Fracture alignment: nondisplaced Fracture type: closed Sublocation of acetabulum: anterior wall Closed fracture of inferior pubic ramus S32.592A Encounter type: initial encounter Laterality: left Vascular disease I99.9 Diabetes mellitus, type II E11.9 Esophageal reflux K21.9 Hyperlipidemia E78.5 Hypertension I10 Nonalcoholic fatty liver disease K76.0 Thrombocytopenia D69.6 (1) Left humeral fracture Encounter type: initial encounter Fracture alignment: displaced Fracture type: closed Humerus Location: proximal (2) Closed fracture of inferior pubic ramus Encounter type: initial encounter Laterality: left Qualified Code(s): S32.592A - Other specified fracture of left pubis, initial encounter for closed fracture (3) Acetabulum fracture, left Encounter type: initial encounter Fracture alignment: nondisplaced Fracture type: closed Sublocation of acetabulum: anterior wall Qualified Code(s): S32.415A - Nondisplaced fracture of anterior wall of left acetabulum, initial encounter for closed fracture
[2021-04-03] MEDS ORDERED: POTASSIUM CHLORIDE CRTAB 20 MEQ TABCR PO STA (18:02)
--- NOTE | 2021-04-03 18:19 | CT Scan Report ---
CT shoulder LT wo con CLINICAL HISTORY: Fracture. COMPARISON STUDY: Left shoulder radiographs performed earlier today. TECHNIQUE: Axial images of the left shoulder were obtained without IV contrast. Sagittal and coronal reconstructions were viewed. Automated exposure control was utilized for the study. A dose lowering technique was utilized adhering to the principles of ALARA. FINDINGS: Note is made of a significantly comminuted and displaced acute proximal left humeral fractu re. Fracture extends through the humeral head and neck. The distal component is displaced approximate ly 2 cm anteriorly with respect to the remainder of the humeral head. Multiple bone fragments are pre sent. Alignment of the left glenohumeral joint remains anatomic. A lucency with corticated margins th rough the inferior glenoid is chronic. There is moderate osteoarthritis of the left acromioclavicular and glenohumeral joints. Stranding adjacent to the left axillary vessels may reflect hemorrhage. The re is soft tissue swelling overlying the left deltoid. No additional acute fractures are present. No significant abnormalities are identified within visualized portions of the left lung. IMPRESSION: 1. Acute comminuted and displaced proximal left humeral fracture, as described above. Distal componen t anteriorly displaced with respect to the remainder of the humeral head. No evidence for dislocation . Adjacent hemorrhage. 2. Moderate osteoarthritis of the left acromioclavicular and glenohumeral joints. ACT 112: Negative or not required by law. Electronically signed by: Jefe Hong M.D. 04/03/2021 6:17 PM
[2021-04-03] MEDS ORDERED: ALBUTEROL HFA 8 GM INHALER INH PRN (19:33)
[2021-04-03] MEDS ORDERED: oxyCODONE HCL IR 5 MG TAB (IMMEDIATE RELEASE) PO PRN (19:33)
[2021-04-03] MEDS ORDERED: diazePAM 2 MG TABLET PO PRN (19:33)
[2021-04-03] MEDS: LACTATED RINGER'S 1,000 ML IV SCH (20:18)
[2021-04-03] MEDS: DOCUSATE SODIUM 100 MG CAP PO SCH (20:59)
[2021-04-03] MEDS: PARoxetine HCL 20 MG TAB PO SCH (20:59)
[2021-04-03] MEDS: ATORVASTATIN 10 MG TAB PO SCH (20:59)
[2021-04-03] MEDS: ACETAMINOPHEN 325 MG TAB PO SCH (23:14)
[2021-04-04] MEDS ORDERED: Nursing to Pharmacy Communication SCH (03:30)
[2021-04-04] MEDS: MoRPHine SULFATE 4 MG/ML 1 ML CARP\\VIAL IV PRN ×2 (06:19→13:14)
[2021-04-04] MEDS ORDERED: BUPIVACAINE 0.5 % 5 MG/1 ML PF 10ML VIAL ONE (06:36)
[2021-04-04] MEDS: LEVOTHYROXINE SODIUM 100 MCG TABLET PO SCH (06:41)
[2021-04-04] MEDS: ACETAMINOPHEN 325 MG TAB PO SCH ×3 (06:41→20:14)
[2021-04-04 07:14] LABS: Hematocrit (blood only) 35.2 % (37-47); Mean Corpuscular Hemoglobin 30.9 pg (25-34); Mean Corpuscular Hgb Conc 34.1 g/dL (32-36); Mean Corpuscular Volume 90.7 fL (80-100); RDW Coefficient of Variation 13.3 % (11.5-14.5); RDW Standard Deviation 43.8 fL (36.4-46.3); Red Blood Count 3.88 M/uL (4.2-5.4); White Blood Count 8.46 K/uL (4.8-10.8)
[2021-04-04 07:19] LABS: Mean Platelet Volume 9.8 fL (7.4-10.4); Platelet Count 78 K/uL (130-400)
[2021-04-04 07:32] LABS: INR 1.2 (0.9-1.1); Prothrombin Time 12.2 Seconds (9.0-12.0)
[2021-04-04 07:43] LABS: Basophils # (auto) 0.03 K/uL (0-0.2); Basophils % (auto) 0.4 %; Eosinophils # (auto) 0.04 K/uL (0-0.5); Eosinophils % (auto) 0.5 %; Immature Granulocytes # (auto) 0.03 K/uL (0.00-0.02); Immature Granulocytes % (auto) 0.4 %; Lymphocytes # (auto) 1.44 K/uL (1.2-3.4); Monocytes # (auto) 0.84 K/uL (0.11-0.59); Monocytes % (auto) 9.9 %; Neutrophils # (auto) 6.08 K/uL (1.4-6.5); Neutrophils % (auto) 71.8 %
[2021-04-04] MEDS: LACTATED RINGER'S 1,000 ML IV SCH ×2 (07:55→20:22)
[2021-04-04] MEDS: FLUTICASONE/VILANTEROL 200/25MCG 14 PUFFS/INHALER INH SCH (07:56)
[2021-04-04] MEDS: DOCUSATE SODIUM 100 MG CAP PO SCH ×2 (07:57→20:10)
[2021-04-04 08:14] LABS: Albumin Globulin Ratio 0.8 (0.9-2); Albumin Level 2.8 gm/dl (3.4-5.0); BUN Creatinine Ratio 18.9 (10-20); Bilirubin,Total 0.9 mg/dl (0.2-1); Calcium 8.5 mg/dl (8.5-10.1); Creatinine Clr Calc Pharmacy 74.2 ml/min; Est GFR (African American) 94.9 ml/min; Est GFR (Non-African American) 81.9 ml/min; Globulin 3.4 gm/dl (2.5-4.0); Magnesium 1.8 mg/dl (1.8-2.4); Total Protein 6.2 gm/dl (6.4-8.2)
--- NOTE | 2021-04-04 08:50 | Orthopedic Consultation ---
Date of Consultation April 04, 2021 Assessment & Plan (1) Left humeral fracture: Left comminuted proximal humerus fracture. -X-rays reviewed with Dr. Zamora. Patient will require a left reverse total shoulder arthroplasty. I have discussed this with the patient in detail and she is in agreement for surgery. Coordinating with [facility] hospitalist service and if cleared medically, plan for OR this afternoon. She will have to be nonweightbearing on the left upper extremity. -Thrombocytopenia-current platelet count was 78. -Left nondisplaced anterior acetabular fracture/left inferior pubic ramus fracture. She will be able to be partial weightbearing to weightbearing as tolerated on the left hip however ambulation may be difficult secondary to her left upper extremity injury. Continue n.p.o. status. Plan for OR this afternoon. History of Present Illness Reason for Consultation: Left proximal humerus fracture; left acetabular fracture; left inferior pubic ramus fracture Attending Physician: Stefany Allen MD History of Present Illness 70 yo female with past medical history of: Mild asthma, Constipation, GOOD cirrhosis, Hypothyroidism, HTN, GERD, thrombocytopenia, mesenteric and proximal celiac stenosis, pre-diabetic. Patient states that she was walking from a c arpeted room into her kitchen in a hurried pace whenever she ended up tripping and falling onto an outstretched left arm. She landed on most of her left side. She denies hitting her head she denies loss of consciousness. She denies any shortness of breath, chest pain, lightheadedness prior to or after the fall. She states it took her approximately 1/2-hour to get to the phone to call for help. Patient states that she lives alone. She was brought to the emergency room here at [facility]. She was seen by the staff and x-rays were taken. It was found that she had a comminuted left proximal humerus fracture as well as a left anterior nondisplaced acetabular fracture with a left inferior pubic ramus fracture. She was admitted by the hospitalist service and we have been asked to take care of her fractures. Currently she is sitting up in bed awake and alert. Her pain is controlled. 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 She states she is sore over most the left side of her body. She has some left rib soreness which is little bit better today. She complains of left elbow and wrist discomfort as well. This has been helped with the sling. She states she is having some discomfort down the left lower extremity to the knee which she states feels like a bruise. No other complaints at this time. Allergies Allergy/AdvReac Type Severity Reaction Status Date / Time codeine Allergy Severe throat Verified 04/03/21 17:51 swelling/hives/dizziness celecoxib Allergy Intermediate Hives Verified 04/03/21 17:51 Sulfa (Sulfonamide Allergy Intermediate Hives Verified 04/03/21 17:51 Antibiotics) Home Medications Medication Instructions Recorded Confirmed Type docusate sodium 100 mg tablet 100 mg PO BID 07/22/19 04/03/21 History multivit with 1 tab PO 1200 07/22/19 04/03/21 History ivqzxqzh-cmei-RT-lutein 8 mg iron-400 mcg-300 mcg tablet (Centrum Silver Women) levothyroxine 100 mcg capsule 100 mcg PO QAM #90 cap 01/19/20 04/03/21 Rx paroxetine HCl 20 mg tablet 20 mg PO HS #90 tab 01/19/20 04/03/21 Rx albuterol sulfate 90 mcg/actuation 2 puff INH Q6H PRN #8.5 g 04/26/20 04/03/21 Rx aerosol inhaler (Ventolin HFA) atorvastatin 10 mg tablet 10 mg PO QPM #90 tab 04/26/20 04/03/21 Rx fluticasone 500 mcg-salmeterol 50 1 inh INH BID #3 inhaler 04/26/20 04/03/21 Rx mcg/dose blistr powdr for inhalation (Advair Diskus) losartan 100 mg tablet 100 mg PO QAM #90 tab 04/26/20 04/03/21 Rx omeprazole 20 mg capsule,delayed 20 mg PO QAM #90 cap 04/26/20 04/03/21 Rx release Patient History Medical History (Updated 04/04/21 @ 14:19 by Slaomón Madrigal PA-C) Anemia with low platelet count per pt platelet number is 89 as of 04/2019 Asthma inhaler daily/prn Closed fracture of inferior pubic ramus Depression Diabetes mellitus, type 2 per pt diet controlled Fatty liver Hepatic cirrhosis Hyperlipidemia Hypertension Hypothyroidism Nonalcoholic fatty liver disease Osteoarthritis Shakiness per pt in her hands Surgical History H/O arthroscopy of left knee meniscus repair H/O colonoscopy H/O oral surgery gum sx History of cholecystectomy History of surgery on arm benign lump removed off left arm History of tonsillectomy History of tooth extraction History of total abdominal hysterectomy and bilateral salpingo-oophorectomy History of wisdom tooth extraction Family History Mother Coronary heart disease Other No family history of adverse response to anesthesia Social History Smoking Status: Never smoker Second Hand Exposure: Yes (work environment); Do You Dip or Chew Tobacco: No; Hx Alcohol Use: No Hx Substance Use: No Preferred Language: Upper Sorbian Communication Ability: Effective Staff Research Scientist Required: No Beliefs That Will Affect Care: None marital status: / Current Living Situation: Alone current occupational status: retired Other Information That Helps Us Care for You: No Feels Safe at Home: Yes Safety Concerns: Feels Safe At This Time Assistive Devices: None Assistive Devices Comment: has cane at home but doesn't use it Physical Exam Physical Exam: On examination, the patient is a 70-year-old white female who appears her stated age. She is alert and oriented x3. No acute distress. Pleasant cooperative. She has a sling added for the left upper extremity. Left shoulder does have some swelling and is tender on palpation over the anterior superior and also a little posterior aspect of the shoulder. No range of motion is performed at this time secondary to fracture. She has some pain radiating down into the elbow. Elbow is mildly tender on palpation but no cortical step-off can be appreciated. She can be taken through minimal gentle range of motion of the left elbow with only minor discomfort. Left wrist has some mild swelling but range of motion is intact and she is mildly tender on palpation. She does have some mild numbness and tingling in her fingers at this time but her fingers are warm to the touch and cap refill is less than 2 seconds. Right upper extremity is unaffected and she has good range of motion of the shoulder, elbow, and wrist. Right lower extremity is unaffected and she is nontender at the hip, knee, ankle. Range of motion is within normal limits. Left lower extremity has some mild tenderness over the left thigh but no overt bruising. Left knee is nontender on palpation. Left ankle is nontender on palpation range of motion of the left ankle is within normal limits. I can take the patient through gentle range of motion of the left knee and hip. No overt knee pain. She does have mild pain with internal and external rotation of the hip as well as flexion and extension. Axial loading of the hip only causes her minimal discomfort. She has mild discomfort on palpation over the left lateral chest wall. No crepitus appreciated. She denies any cervical, thoracic, lumbar pain at this time. Distal pulses are equal bilaterally of the upper and lower extremities. There is no gross motor or sensory loss seen at this time. Results & Data ([facility]) Vital Signs (Past 12 Hours) Vital Signs Temp Pulse Resp BP Pulse Ox 04/04/21 07:19 36.7 C 81 16 109/65 92 04/03/21 23:09 37.7 C H 89 18 136/70 92 Diagnostic Findings Patient: MARCELLA JUÁREZ Date: 04/03/21#: [id number]: [id number] CTAt ID:[id number]: Date: [address] [place] [address] Zip: [place], [place] [address]Vnf: [id number]: EDSex: FRoom/Bed:Att Phy:Diagnosis: FALLPri Phy: Piyush Casanova, MDService Date: 04/03/21Fa Phy:Interpreting Phy: [facility]: Ordering Phy: Harish Brock M.D. cc: ~ CT shoulder LT wo con CLINICAL HISTORY: Fracture. COMPARISON STUDY: Left shoulder radiographs performed earlier today. TECHNIQUE: Axial images of the left shoulder were obtained without IV contrast. Sagittal and coronal reconstructions were viewed. Automated exposure control was utilized for the study. A dose lowering technique was utilized adhering to the principles of ALARA. FINDINGS: Note is made of a significantly comminuted and displaced acute proximal left humeral fracture. Fracture extends through the humeral head and neck. The distal component is displaced approximately 2 cm anteriorly with respect to the remainder of the humeral head. Multiple bone fragments are present. Alignment of the left glenohumeral joint remains anatomic. A lucency with corticated margins through the inferior glenoid is chronic. There is moderate osteoarthritis of the left acromioclavicular and glenohumeral joints. Stranding adjacent to the left axillary vessels may reflect hemorrhage. There is soft tissue swelling overlying the left deltoid. No additional acute fractures are present. No significant abnormalities are identified within visualized portions of the left lung. IMPRESSION: 1. Acute comminuted and displaced proximal left humeral fracture, as described above. Distal component anteriorly displaced with respect to the remainder of the humeral head. No evidence for dislocation. Adjacent hemorrhage. 2. Moderate osteoarthritis of the left acromioclavicular and glenohumeral joints. CT hip LT wo con CLINICAL HISTORY: Left hip pain following fall. COMPARISON STUDY: Pelvis and left hip radiographs performed earlier today. TECHNIQUE: Axial images of the left hip were obtained without IV contrast. Sagittal and coronal reconstructions were viewed. Automated exposure control was utilized for the study. A dose lowering technique was utilized adhering to the principles of ALARA. FINDINGS: Please note that the CT of the abdomen and pelvis will be reported separately. Note is made of an acute comminuted nondisplaced fracture the anterior wall of the left acetabulum. There is an additional acute nondisplaced fracture of the left inferior pubic ramus. No acute proximal left femoral fracture is noted. Alignment of the left hip is anatomic. Mild left hip osteoarthritis. No large pelvic hematoma is identified. There may be a small amount of intramuscular hemorrhage within the left obturator internus. IMPRESSION: 1. Acute comminuted nondisplaced fracture the anterior wall of the left acetabulum. Acute nondisplaced fracture of the left inferior pubic ramus. 2. No acute proximal left femoral fracture. 3. Suspected small amount of intramuscular hemorrhage within the left obturator internus. (1) Left humeral fracture Encounter type: initial encounter Fracture alignment: displaced Fracture type: closed Humerus Location: proximal
--- NOTE | 2021-04-04 09:41 | Hospitalist Progress Note ---
Date of Service April 04, 2021 Assessment & Plan (1) Left humeral fracture: Plan: Attending: Dr. Allen Impression: There is a 70-year-old female that lives alone. She had a mechanical fall resulting in fracture. She came to the emergency room departm ent via ambulance. Imaging was reviewed and patient at this time will undergo left reverse total shoulder arthroplasty. Pain is generally controlled. OR scheduled with Dr. Urrutia Continue with sling for immobilization Continue with morphine for pain control Add bowel regimen now the patient is on morphine Anticipate surgical repair later today Further management per orthopedics (2) Fall: Plan: This was a mechanical fall. There is no loss of consciousness. Patient had no dizziness or other contributing factors. Discussion with patient about returning home. She lives alone. Patient agrees to rehab facility on discharge We will also ask physical therapy and Occupational Therapy to get involved while patient is an inpatient. (3) Thrombocytopenia: Plan: Patient reports that this is been ongoing for quite some time and that her baseline platelet count has been drifting downward Likely secondary to cirrhosis and splenomegaly Platelets this morning are at 78,000 Imaging reviewed. Ruled out intraabdominal hemorrhage Unclear as to whether or not the patient is following with someone from hematology Follow serial labs while in inpatient (4) Asthma: Plan: Generally well controlled Patient has an HFA inhaler as well as nebulizer at home No adventitious sounds on auscultation Her medications include albuterol HFA rescue inhaler, fluticasone 500/salmeterol 50 (Advair) Oxygenating well. No bronchospasm. Most recent pulmonary function testing with spirometry only. This was done 04/27/2019. This reflected mild obstructive airway disease with no restrictive disease FVC 2.55 or 80% of predicted FEV1 1.87 or 76% of predicted FEV1/FVC 73% which is 95% of predicted DLCO is not available (5) Esophageal reflux: Plan: No evidence of epigastric discomfort Omeprazole at home Continue pantoprazole while inpatient (6) Hypertension: Plan: No chest pain or tightness Holding home losartan 100 mg daily Hemodynamically stable EKG today with a rate of 83 bpm QT interval 394 ms QTC 462 ms EKG interpretation by Dr. 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 Abnormal ECG When compared with ECG of 03-OCT-2006 07:45, Anteroseptal infarct is now Present Inferior infarct is now Present (7) Hyperlipidemia: Plan: Continue atorvastatin 10 mg daily (8) Hypothyroidism: Plan: Continue levothyroxine 100 mcg daily TSH normal in 10/2020 (9) Diabetes mellitus, type II: Plan: Diet controlled No medications or insulin use at home Hemoglobin A1c 5.5% NovoLog sliding scale insulin while inpatient (10) Hepatic cirrhosis: Plan: No history of alcohol abuse Coagulation factors within normal limits INR 1.2 Outpatient management (11) Vascular disease: Plan: Mesenteric stenosis Continue statin (12) DVT prophylaxis: Plan: No chemical prophylaxis secondary to need for surgery GUILLERMINA hose/SCDs Admission and Anticipated Discharge Date Admission Date: April 03, 2021 Supervising Physician Co-Signing Physician Notes PA Supervision Note: I did not personally see or examine the patient today, but I verified all oliva points of GEOFF Madrigal's assessment and plan with the following exceptions/additions: None Subjective Attending: Dr. Allen Patient seen and examined. Pain generally controlled. Some increased pain/tenderness in the left upper quadrant. No fever, chills, sweats, or rigors. No nausea or vomiting. Feels constipated. No SOB or awareness of tachyarrhythmias. No chest pain or tightness. No other acute complaints Review of Systems Review of Systems: All systems reviewed & are unremarkable except as noted in Subjective Physical Exam Physical Exam: GENERAL : No acute distress. Pleasant. Talkative EYES: No icterus, gaze conjugate NOSE: No evidence of epistaxis MOUTH: No lesions or candidiasis NECK: Supple LUNGS: CTA B/L, no wheezes, rales or rhonchi HEART: Regular, rate controlled ABDOMEN: Soft, NT, ND, BS Present EXTREMITIES: No LE edema, pedal pulses intact. Left upper extremity in sling and immobilized NEURO: A&OX3 Results & Data Results & Data ([facility]) Vital Signs (Past 12 Hours) Vital Signs Temp Pulse Resp BP Pulse Ox 04/04/21 07:19 36.7 C 81 16 109/65 92 04/03/21 23:09 37.7 C H 89 18 136/70 92 Laboratory Results 04/04/21 06:59 04/04/21 06:59 INR 1.2 (0.9-1.1) H 04/04/21 06:59 Diagnostic Findings Chest X-Ray 04/03/21 14:38 XR chest 1V portable INDICATION: MN ^fall. TECHNIQUE: Single frontal radiograph of the chest was obtained. Comparison: Comparison is made to chest one view 09/29/2006 FINDINGS: No lines and tubes are seen. The cardiomediastinal silhouette is normal. The lungs are clear. No evidence of pleural effusion or pneumothorax. IMPRESSION: No acute chest disease. ACT 112: Negative or not required by law. Electronically signed by: Stone Stout M.D. 04/03/2021 4:17 PM Elbow X-Ray 04/03/21 14:39 XR elbow LT min 3V routine CLINICAL HISTORY: fall COMPARISON: None FINDINGS: Alignment of the left elbow is anatomic. There is no acute fracture. There is no joint effusion. IMPRESSION: No acute fracture or joint effusion of the left elbow. ACT 112: Negative or not required by law. Electronically signed by: Jefe Hong M.D. 04/03/2021 4:17 PM Hip/Pelvis X-Ray 04/03/21 14:39 XR hip LT 2V w pelvis CLINICAL HISTORY: fall, pain COMPARISON: None FINDINGS: The sacroiliac joints and symphysis pubis are intact. No definite acute fracture is identified within the pelvis or hips. There is mild bilateral hip osteoarthritis. There is an equivocal fracture of the left inferior pubic ramus. IMPRESSION: No definite acute fracture within the pelvis or hips. Equivocal acute fracture of the left inferior pubic ramus. ACT 112: Negative or not required by law. Electronically signed by: Jefe Hong M.D. 04/03/2021 4:21 PM Shoulder X-Ray 04/03/21 14:39 XR shoulder LT min 2V routine CLINICAL HISTORY: fall, pain COMPARISON: None FINDINGS: Note is made of an acute comminuted displaced transverse left humeral neck fracture which extends through the humeral head. Greater tuberosity is displaced. The humeral shaft is displaced 2.8 cm anteriorly with respect to the humeral head. Alignment of the left glenohumeral joint remains anatomic. Moderate acromioclavicular joint osteoarthritis is present. IMPRESSION: Acute significantly displaced comminuted proximal left humeral fracture, as described above. Humeral shaft displaced at least 2.2 cm anteriorly with respect to the humeral head. ACT 112: Negative or not required by law. Electronically signed by: Jefe Hong M.D. 04/03/2021 4:16 PM Wrist X-Ray 04/03/21 14:39 LEFT WRIST 3 VIEWS CLINICAL HISTORY: Fall with left wrist injury. FINDINGS: 3 views of the left wrist are obtained. No prior studies are available for comparison at the time of dictation. The skeletal structures are osteopenic. No acute fracture is identified. Mild degenerative narrowing is seen at the radiocarpal articulation. Mild osteoarthritic change is also seen at the first carpometacarpal joint. Soft tissue edema is present around the wrist. IMPRESSION: Soft tissue swelling with no fracture identified. If there strong clinical concern for occult fracture consider short-term radiographic follow-up. Electronically signed by: Salomón Rubio M.D. 04/03/2021 4:21 PM Abdomen/Pelvis CT 04/03/21 15:32 CT abd pelvis IV con only CLINICAL INDICATION: MN ^B5 ^fall, L hip groin pain, low plts. TECHNIQUE: Helical axial images of the abdomen and pelvis were obtained and displayed at 5 and 1 mm intervals. Automated dose lowering techniques and/or adjustment according to patient size were utilized for this exam. This exam was performed with intravenous contrast. COMPARISON: None available at the time of this dictation. FINDINGS: Lower chest: Biatrial enlargement is noted. Lungs are unremarkable. Liver: Nodular contour of the liver is seen compatible with cirrhosis. Gallbladder and biliary tree: Patient is status post cholecystectomy. Physiologic prominence of the biliary ducts is noted. Pancreas: Fatty replacement of the pancreas is seen. Spleen: Splenomegaly is noted, the spleen measures Adrenals: Unremarkable. Kidneys and ureters: Unremarkable. Bladder: Unremarkable. Bowel: A hiatal hernia is seen. The appendix is normal. Lymph nodes Retroperitoneal: Prominent sara hepatis lymph nodes are seen measuring up to 9 mm in short axis. Subcentimeter retroperitoneal nodes are noted. Mesenteric: Unremarkable. Pelvic: Unremarkable. Reproductive organs: Unremarkable. Peritoneum: Normal Vessels: Atherosclerotic calcifications are seen. Abdominal wall: Unremarkable. Bones: Degenerative changes in the visualized spine. IMPRESSION: 1. No evidence of acute abnormality in this patient with left hip pain. No intra-abdominal hematoma. 2. Cirrhosis with prominent sara hepatis lymph nodes. 3. Additional findings as above. ACT 112: Negative or not required by law. Electronically signed by: Stone Stout M.D. 04/03/2021 4:[address] 04/03/21 15:32 CT head/brain wo con Clinical Indication: MN ^fall. Technique: Contiguous axial CT images of the head were acquired from the base of the skull to the vertex without intravenous contrast administration. Images were viewed in brain, subdural and bone windows. Automated dose lowering techniques and/or adjustment according to patient size were utilized for this exam. Comparison: None available at the time of this dictation. Findings: The ventricles, basal cisterns, and cerebral sulci are normal. There is no acute intracranial hemorrhage or evidence of acute territorial infarction. Neither mass effect, shift of the midline structures, nor abnormal extra-axial fluid collections are shown. Imaged portions of the paranasal sinuses and mastoid air cells are clear. The orbits appear normal. There are no acute fractures of the calvaria or scalp swelling. Impression: No acute intracranial hemorrhage, evidence of acute territorial infarction, or other acute intracranial disease process. ACT 112: Negative or not required by law. Electronically signed by: Stone Stout M.D. 04/03/2021 4:[address] 04/03/21 15:55 CT hip LT wo con CLINICAL HISTORY: Left hip pain following fall. COMPARISON STUDY: Pelvis and left hip radiographs performed earlier today. TECHNIQUE: Axial images of the left hip were obtained without IV contrast. Sagittal and coronal reconstructions were viewed. Automated exposure control was utilized for the study. A dose lowering technique was utilized adhering to the principles of ALARA. FINDINGS: Please note that the CT of the abdomen and pelvis will be reported separately. Note is made of an acute comminuted nondisplaced fracture the anterior wall of the left acetabulum. There is an additional acute nondisplaced fracture of the left inferior pubic ramus. No acute proximal left femoral fracture is noted. Alignment of the left hip is anatomic. Mild left hip osteoarthritis. No large pelvic hematoma is identified. There may be a small amount of intramuscular hemorrhage within the left obturator internus. IMPRESSION: 1. Acute comminuted nondisplaced fracture the anterior wall of the left acetabulum. Acute nondisplaced fracture of the left inferior pubic ramus. 2. No acute proximal left femoral fracture. 3. Suspected small amount of intramuscular hemorrhage within the left obturator internus. ACT 112: Negative or not required by law. Electronically signed by: Jefe Hong M.D. 04/03/2021 4:[address] 04/03/21 17:12 CT shoulder LT wo con CLINICAL HISTORY: Fracture. COMPARISON STUDY: Left shoulder radiographs performed earlier today. TECHNIQUE: Axial images of the left shoulder were obtained without IV contrast. Sagittal and coronal reconstructions were viewed. Automated exposure control was utilized for the study. A dose lowering technique was utilized adhering to the principles of ALARA. FINDINGS: Note is made of a significantly comminuted and displaced acute proximal left humeral fracture. Fracture extends through the humeral head and neck. The distal component is displaced approximately 2 cm anteriorly with respect to the remainder of the humeral head. Multiple bone fragments are present. Alignment of the left glenohumeral joint remains anatomic. A lucency with corticated margins through the inferior glenoid is chronic. There is moderate osteoarthritis of the left acromioclavicular and glenohumeral joints. Stranding adjacent to the left axillary vessels may reflect hemorrhage. There is soft tissue swelling overlying the left deltoid. No additional acute fractures are present. No significant abnormalities are identified within visualized portions of the left lung. IMPRESSION: 1. Acute comminuted and displaced proximal left humeral fracture, as described a jovany. Distal component anteriorly displaced with respect to the remainder of the humeral head. No evidence for dislocation. Adjacent hemorrhage. 2. Moderate osteoarthritis of the left acromioclavicular and glenohumeral joints. ACT 112: Negative or not required by law. Electronically signed by: Jefe Hong M.D. 04/03/2021 6:17 PM Medications Administered Current Inpatient Medications Acetaminophen (Acetaminophen 325 Mg Tab) 650 mg PO Q6 CHARITO Stop: 05/04/21 00:00 Last Admin: 04/04/21 11:26 Dose: 650 mg Documented by: Albuterol (Albuterol Hfa 8 Gm Inhaler) 2 puffs INH Q6R PRN PRN Reason: shortness of breath or wheezin Stop: 05/03/21 19:32 Atorvastatin Calcium (Atorvastatin 10 Mg Tab) 10 mg PO QPM CHARITO Stop: 05/03/21 20:59 Last Admin: 04/03/21 20:59 Dose: 10 mg Documented by: Diazepam (Diazepam 2 Mg Tablet) 1 mg PO Q8 PRN PRN Reason: Muscle Spasm Stop: 05/03/21 19:32 Docusate Sodium (Docusate Sodium 100 Mg Cap) 100 mg PO BID CHARITO Stop: 05/03/21 20:59 Last Admin: 04/04/21 07:57 Dose: 100 mg Documented by: Fluticasone/Vilanterol (Fluticasone/Vilanterol 200/25mcg 14 Puffs/Inhaler) 1 puffs INH DAILY CHARITO Stop: 05/04/21 08:59 Last Admin: 04/04/21 07:56 Dose: 1 puffs Documented by: Lactated Ringer's (Lr) 1,000 mls @ 85 mls/hr IV .[id number] [facility] Stop: 05/03/21 17:59 Last Admin: 04/04/21 07:55 Dose: 85 mls/hr Documented by: Pantoprazole Sodium 40 mg/ (Syringe) 10 mls @ 5 mls/min IV DAILY@1100 [facility] Stop: 05/04/21 10:59 Last Admin: 04/04/21 10:51 Dose: 5 mls/min Documented by: Levothyroxine Sodium (Levothyroxine Sodium 100 Mcg Tablet) 100 mcg PO DAILYBB [facility] Stop: 05/04/21 06:29 Last Admin: 04/04/21 06:41 Dose: 100 mcg Documented by: Morphine Sulfate (Morphine Sulfate 4 Mg/Ml 1 Ml Carp\Vial) 3 mg IV Q4 PRN PRN Reason: Severe Pain Stop: 04/17/21 19:32 Last Admin: 04/04/21 13:14 Dose: 3 mg Documented by: Oxycodone HCl (Oxycodone Hcl Ir 5 Mg Tab (Immediate Release)) 5 mg PO Q6 PRN PRN Reason: Moderate Pain Stop: 04/17/21 19:32 Paroxetine HCl (Paroxetine Hcl 20 Mg Tab) 20 mg PO HS CHARITO Stop: 05/03/21 20:59 Last Admin: 04/03/21 20:59 Dose: 20 mg Documented by: Polyethylene Glycol (Polyethylene (Miralax) 17 Gm Pack) 17 gm PO DAILY PRN PRN Reason: Constipation Stop: 05/04/21 09:47 Sennosides (Senna 8.6 Mg Tab) 8.6 mg PO QAM CHARITO Stop: 05/04/21 09:59 Last Admin: 04/04/21 10:50 Dose: 8.6 mg Documented by: PG Care Time/CCT Total # of Minutes Spent Total Time Spent with Patient: Total time spent is greater than 50% in coordination of care (as documented) at patient's floor/unit and/or counseling patient:40 minutes Coding Level of Care Code 10730 Subseq Hosp Care Lvl 2 Diagnoses Left humeral fracture S42.302A Encounter type: initial encounter Fracture alignment: displaced Fracture type: closed Humerus Location: proximal Fall W19.XXXA Encounter type: initial encounter Thrombocytopenia D69.6 Asthma J45.909 Esophageal reflux K21.9 Hypertension I10 Hyperlipidemia E78.5 Hypothyroidism E03.9 Diabetes mellitus, type II E11.9 DVT prophylaxis Z29.9 Hepatic cirrhosis K74.60 Vascular disease I99.9 Time Spent (min) 40 (1) Left humeral fracture Encounter type: initial encounter Fracture alignment: displaced Fracture type: closed Humerus Location: proximal (2) Fall Encounter type: initial encounter Qualified Code(s): W19.XXXA - Unspecified fall, initial encounter
[2021-04-04] MEDS ORDERED: POLYETHYLENE (MIRALAX) 17 GM PACK PO PRN (09:48)
[2021-04-04] MEDS ORDERED: DOCUSATE SODIUM 100 MG CAP PO SCH (10:00)
[2021-04-04] MEDS ORDERED: MAGNESIUM SULFATE / D5W 1 GM/100 ML BAG IV ONE (10:00)
[2021-04-04] MEDS: SENNA 8.6 MG TAB PO SCH (10:50)
[2021-04-04] MEDS: PANTOprazole 40 MG in SYRINGE 0 ML IV SCH (10:51)
--- NOTE | 2021-04-04 12:32 | Anesthesiology Consultation ---
Date of Service April 04, 2021 Assessment & Plan (1) Encounter for pre-operative examination: Chart Review Chart Review: Acceptable Risk for Surgery and Patient NOT seen in Pre Admission Testing covid neg 04/03/21 Consults Requested none History Surgery Operation Date: 04/04/21 08:20 Proposed Procedures p Left Reverse Total Shoulder Arthroplasty - Mason Zamora MD Height/Weight Height: 5 ft 5 in Weight: 78.075 kg Allergies Allergy/AdvReac Type Severity Reaction Status Date / Time codeine Allergy Severe throat Verified 04/03/21 17:51 swelling/hives/dizziness celecoxib Allergy Intermediate Hives Verified 04/03/21 17:51 Sulfa (Sulfonamide Allergy Intermediate Hives Verified 04/03/21 17:51 Antibiotics) Medications Home Medications Medication Instructions Recorded Confirmed Last Taken docusate sodium 100 mg tablet 100 mg PO BID 07/22/19 04/03/21 04/03/21 multivit with 1 tab PO 1200 07/22/19 04/03/21 04/03/21 [id number]-lutein 8 mg iron-400 mcg-300 mcg tablet (Centrum Silver Women) levothyroxine 100 mcg capsule 100 mcg PO QAM #90 cap 01/19/20 04/03/21 04/03/21 paroxetine HCl 20 mg tablet 20 mg PO HS #90 tab 01/19/20 04/03/21 04/02/21 albuterol sulfate 90 mcg/actuation 2 puff INH Q6H PRN #8.5 g 04/26/20 04/03/21 Unknown aerosol inhaler (Ventolin HFA) atorvastatin 10 mg tablet 10 mg PO QPM #90 tab 04/26/20 04/03/21 04/02/21 fluticasone 500 mcg-salmeterol 50 1 inh INH BID #3 inhaler 04/26/20 04/03/21 04/03/21 mcg/dose blistr powdr for inhalation (Advair Diskus) losartan 100 mg tablet 100 mg PO QAM #90 tab 04/26/20 04/03/21 04/03/21 omeprazole 20 mg capsule,delayed 20 mg PO QAM #90 cap 04/26/20 04/03/21 04/03/21 release Active Medications Generic Name Dose Route Start Last Admin Trade Name Freq PRN Reason Stop Dose Admin Acetaminophen 650 mg 04/04/21 00:00 04/04/21 11:26 Acetaminophen 325 Mg Tab PO 05/04/21 00:00 650 mg Q6 CHARITO Administration Atorvastatin Calcium 10 mg 04/03/21 21:00 04/03/21 20:59 Atorvastatin 10 Mg Tab PO 05/03/21 20:59 10 mg QPM CHARITO Administration Docusate Sodium 100 mg 04/03/21 21:00 04/04/21 07:57 Docusate Sodium 100 Mg Cap PO 05/03/21 20:59 100 mg BID CHARITO Administration Fluticasone/Vilanterol 1 puffs 04/04/21 09:00 04/04/21 07:56 Fluticasone/Vilanterol 200/25mcg 14 Puffs/Inhaler INH 05/04/21 08:59 1 puffs DAILY CHARITO Administration Lactated Ringer's 1,000 mls @ 85 mls/hr 04/03/21 18:00 04/04/21 07:55 Lr IV 05/03/21 17:59 85 mls/hr .[id number] CHARITO Administration Pantoprazole Sodium 40 mg/ 10 mls @ 5 mls/min 04/04/21 11:00 04/04/21 10:51 Syringe IV 05/04/21 10:59 5 mls/min DAILY@1100 CHARITO Administration Levothyroxine Sodium 100 mcg 04/04/21 06:30 04/04/21 06:41 Levothyroxine Sodium 100 Mcg Tablet PO 05/04/21 06:29 100 mcg DAILYBB CHARITO Administration Morphine Sulfate 3 mg 04/03/21 19:33 04/04/21 06:19 Morphine Sulfate 4 Mg/Ml 1 Ml Carp\Vial IV 04/17/21 19:32 3 mg Q4 PRN Administration Severe Pain Paroxetine HCl 20 mg 04/03/21 21:00 04/03/21 20:59 Paroxetine Hcl 20 Mg Tab PO 05/03/21 20:59 20 mg HS CHARITO Administration Sennosides 8.6 mg 04/04/21 10:00 04/04/21 10:50 Senna 8.6 Mg Tab PO 05/04/21 09:59 8.6 mg QAM CHARITO Administration NPO Date Last Intake of Fluids: 04/03/21 Time Last Intake of Fluids: 00:00 Past Medical History Medical History (Updated 04/04/21 @ 12:32 by Gerber Hassan MD) Anemia with low platelet count per pt platelet number is 89 as of 04/2019 Asthma inhaler daily/prn Closed fracture of inferior pubic ramus Depression Diabetes mellitus, type 2 per pt diet controlled Fatty liver Hepatic cirrhosis Hyperlipidemia Hypertension Hypothyroidism Nonalcoholic fatty liver disease Osteoarthritis Shakiness per pt in her hands Her platelet counts are normally in the 80-100 range, this is followed by her PCP, she endorses some bruising but no overt bleeding or blood in her stools or urine. PFT's 04/2019 showed MILD obstructive airway disease. Past Family History Family History Mother Coronary heart disease Other No family history of adverse response to anesthesia Past Surgical History Surgical History H/O arthroscopy of left knee meniscus repair H/O colonoscopy H/O oral surgery gum sx History of cholecystectomy History of surgery on arm benign lump removed off left arm History of tonsillectomy History of tooth extraction History of total abdominal hysterectomy and bilateral salpingo-oophorectomy History of wisdom tooth extraction Social History Smoking Status: Never smoker Do You Dip or Chew Tobacco: No Hx Alcohol Use: No Hx Substance Use: No substance use type: does not use Physical Exam Vital Signs Last Vital Signs Temp 36.7 C 04/04/21 07:19 Pulse 81 04/04/21 07:19 Resp 16 04/04/21 07:19 BP 109/65 04/04/21 07:19 Pulse Ox 92 04/04/21 07:19 Testing Laboratory Results 04/04/21 06:59 04/04/21 06:59 PT 12.2 Seconds (9.0-12.0) H 04/04/21 06:59 INR 1.2 (0.9-1.1) H 04/04/21 06:59 04/04/21 04/04/21 06:14 01:10 POC Glucose 124 H 109 H Electrocardiogram Date: 04/03/21 DICTATED BY: Hugh Lopez MD Test Reason : Blood Pressure : / mmHG Vent. 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 TECHNIQUE: Single frontal radiograph of the chest was obtained. Comparison: Comparison is made to chest one view 09/29/2006 FINDINGS: No lines and tubes are seen. The cardiomediastinal silhouette is normal. The lungs are clear. No evidence of pleural effusion or pneumothorax. IMPRESSION: No acute chest disease.
[2021-04-04] MEDS ORDERED: MIDAZOLAM HCL 1 MG/ML 2ML VIAL ONE (14:23)
[2021-04-04] MEDS ORDERED: fentaNYL citrate 100 MCG/2 ML VIAL ONE (14:23)
[2021-04-04] MEDS ORDERED: LIDOCAINE 2% 2 ML VIAL/AMP(20MG/ML) INFIL ONE (14:26)
[2021-04-04] MEDS ORDERED: ONDANSETRON INJ 2 MG/ML 2 ML VIAL ONE (14:26)
[2021-04-04] MEDS ORDERED: PROPOFOL IV EMULSION 10 MG/ML 20 ML VIAL IV ONE (14:26)
[2021-04-04] MEDS ORDERED: fentaNYL citrate 100 MCG/2 ML VIAL IV PRN (14:37)
[2021-04-04] MEDS ORDERED: ONDANSETRON INJ 2 MG/ML 2 ML VIAL IV PRN ×2 (14:37→19:49)
[2021-04-04] MEDS ORDERED: ATROPINE SULFATE 0.1 MG/ML 10ML SYR IV PRN (14:37)
[2021-04-04] MEDS ORDERED: ePHEDrine sulfate 50 MG/ML AMP IV PRN (14:37)
[2021-04-04] MEDS ORDERED: ALBUT/IPRATROP 3MG/0.5MG NEB 3 ML VIAL INH PRN (15:02)
[2021-04-04] MEDS ORDERED: TRANEXAMIC ACID IV ONE (15:10)
[2021-04-04] MEDS ORDERED: SODIUM CHLORIDE 0.9% IV ONE (15:10)
[2021-04-04] MEDS ORDERED: BUPIVACAINE 0.25% 30 ML VIAL ONE (15:15)
[2021-04-04] MEDS ORDERED: ceFAZolin 2000MG 2,000 MG/15 ML SYR IV ONE (15:15)
--- NOTE | 2021-04-04 15:15 | History & Physical Bridge Note ---
Date of Service April 04, 2021 History & Physical Bridge Note I have examined the patient, reviewed the History & Physical and in the interval since the performance of the History & Physical I have noted the following changes of clinical significance: no changes noted
[2021-04-04] MEDS: TRANEXAMIC ACID / 0.7% NACL 1000MG/100ML BAG IV ONE ×3 (15:19→15:29)
[2021-04-04] MEDS: ceFAZolin 2,000 MG/15 ML IV PUSH IV ONE ×2 (15:29→15:57)
[2021-04-04] MEDS ORDERED: TRANEXAMIC ACID / 0.7% NACL 1,000 MG/100 ML BAG IV ONE (15:30)
[2021-04-04] MEDS ORDERED: SUGAMMADEX SODIUM 200 MG/2 ML VIAL IV ONE (15:49)
[2021-04-04] MEDS ORDERED: DEXAMETHASONE SOD INJ 4 MG/ML VIAL ONE (16:00)
[2021-04-04] MEDS ORDERED: ROCURONIUM BROMIDE 10 MG/ML 5 ML VIAL IV ONE ×4 (16:00→18:33)
[2021-04-04] MEDS ORDERED: EpINEphrine HCL INJ 1 MG/ML 1ML SYRINGE ONE (17:42)
--- NOTE | 2021-04-04 18:40 | Post Operative Brief Note ---
Immediate Post Op Note v1 Date of Surgery April 04, 2021 Pre & Post Diagnosis Operation Date: 04/04/21 08:20 Pre-Op Diagnosis: Left comminuted proximal humerus fracture. Post-Op Diagnosis: Left comminuted proximal humerus fracture, degenerative arthritis glenohumeral joint, partial tear biceps tendon I identified the patient and participated in the time-out.: Yes Procedure Operation Date: 04/04/21 08:20 Actual Procedures p Left Fracture Reverse Total Shoulder Arthroplasty Cemented, Bicep Tenodesis, Repair and Bone Grafting of Tuberosity Proximal Humeral Fracture (Left) - Mason Zamora MD Surgeon Mason Zamora MD Olive Grader Ben TELLEZ Estimated Blood Loss 150 Findings Consistent with Post-Op Diagnosis Specimens Humeral head Drains Valdivia Catheter and Hemovac Drain Anesthesia Type General Regional Complications none Disposition Accompanied Patient To Recovery: No Disposition: Recovery Room Overlapping Procedure I was immediately available: during the entire case.
--- NOTE | 2021-04-04 18:50 | Operative Report ---
Post Operative Report Pre & Post Diagnosis Operation Date: 04/04/21 08:20 Pre-Op Diagnosis: Left comminuted proximal humerus fracture. Post-Op Diagnosis: Left comminuted proximal humerus fracture, glenohumeral osteoarthritis, traumatic partial tear biceps tendon. I identified the patient and participated in the time-out.: Yes Procedure Operation Date: 04/04/21 08:20 Actual Procedures p Left Fracture Reverse Total Shoulder Arthroplasty Cemented, Bicep Tenodesis, Repair and Bone Grafting of Tuberosities Proximal Humeral Fracture (Left) - Mason Zamora MD Surgeon Mason Zamora MD Purchasing Coordinator Ben TELLEZ Estimated Blood Loss 150 Findings Consistent with Post-Op Diagnosis Specimens Humeral head Drains 2 Hemovac Anesthesia Type General Regional Complications none Disposition Accompanied Patient To Recovery: No Disposition: Recovery Room Indications 70-year-old female with posttraumatic left proximal humerus fracture and left acetabular fracture. Humerus has a displaced comminuted neck fracture with 100% displacement angulation and lesser and greater tuberosity fractures. CT scan demonstrates subchondral cystic changes in the glenoid but no clearance of the glenoid fracture there are some osteophytes of the glenoid. Description of Procedure Patient was taken to the operating room anesthetized under regional block and general anesthetic. Patient was placed in the beach chair position. A towel roll was placed under the medial border of the left scapula. The head was placed on a foam headrest. Protective eyewear was placed. SCDs were placed. All extremities were well-padded. Shoulder exam demonstrated moderate swelling no ecchymosis crepitation range of motion consistent with fracture. The shoulder was sterilely prepped and draped in usual sterile fashion with ChloraPrep. An anterior deltopectoral approach was performed. The skin was incised sharply in longitudinal fashion. Subcutaneous flaps were elevated. The deltopectoral interval was identified. The cephalic vein was not present and not well developed. The deltopectoral interval was developed. The conjoined tendon was identified and retracted medially. The clavipectoral fascia was divided at the lateral margin the conjoined tendon. The upper 1 cm of the pectoralis was released for inferior exposure. The biceps tendon findings demonstrated the biceps had partial tearing fraying and tenting over the fracture of the shaft which was displaced anteriorly with the humeral head and comminuted greater tuberosity fracture is displaced posteriorly and the fractures of the lesser tuberosity comminuted and displaced anteriorly. Biceps tendon was sutured to the pectoralis tendon tenodesis and get to the pectoralis tendon using [id number] #2 FiberWire sutures. Biceps tendon was divided proximal to the tenodesis. Vicryl sutures were placed into the subscapularis tendon and the supraspinatus and infraspinatus tendons to control the tuberosity fractures. The humeral head fragment was osteotomized from the tuberosity fragments and removed. Debris was irrigated out of the glenohumeral joint. The glenoid findings demonstrated grade 4 eburnated bone inferior glenoid with an anterior-inferior osteophyte.. The Tornier reverse total shoulder replacement was utilized with the Tornier fracture stem. Glenoid exposure performed removing the labrum and biceps tendon and performing anterior-inferior and posterior capsule release and triceps tendon release. Dissection was performed on bone to protect the axillary nerve. Retractors were placed to expose the glenoid. The bone spurs were removed along the anterior-inferior glenoid . Any remaining cartilage on the glenoid was removed with a curette. The glenoid was sized for a 25 millimeters baseplate. The guide for the aequalis baseplate was positioned and central drill hole was made. The reamer was used. The bone quality was sclerotic hard bone. The central drill hole was widened for the post. There was no opening into the cyst posteriorly inside the post hole that was drilled. The glenoid was irrigated with pulsatile lavage saline solution. Bone graft was placed into the cyst prior to placement of the baseplate. The 25 millimeter aequalis hydroxyapatite-coated baseplate was impacted into position with excellent fit. This was transfixed with superior and inferior locking screws and anterior posterior compression screws. The 36 x 25 glenoid sphere was impacted onto the baseplate and the security screw tightened. This was checked for stability and was intact and stable. Attention taken to the humerus. Humeral canal was reamed and size 7 millimeters stem was chosen. Height of the implant when impacted was documented and rotation was placed with the rotational kiarra in line with the forearm. Trial reduction demonstrated that a size +6 trial polyethylene insert gave stability and no shuck. The trial was removed and the canal was irrigated with pulsatile lavage saline solution. Four #5 FiberWire sutures were first passed around the posterior greater tuberosity fragments. Two #5 FiberWire sutures were placed through drill holes into the shaft and docked for later tying. The cement restrictor was placed at the appropriate depth in the canal of the humerus. Bone graft was harvested from th e humeral head and the bone graft inserted into the hole in the humeral implant. The size 7 aequalis fracture stem humeral implant was cemented into position with Palacos G cement. After the cement cured the +6 x 36 polyethylene insert was impacted into the humeral implant. 4 tails of the suture were passed around the implant prior to reducing it to the glenoid sphere. The tuberosities posteriorly were then sutured to the stem after placing bone graft between the hydroxyapatite portion of the stem the shaft and the tuberosity fragments. The arm was rotated and the posterior tuberosities were secured with rotation. Sutures were then passed around the lesser tuberosity fragments through the subscap tendon and then bone graft was placed underlying these fragments and the humeral implant and the shaft area. The other two #5 FiberWire sutures were tied around the lesser tuberosity fragment suturing that to the shaft and the lesser to the greater tuberosity fragments together. The Vicryl sutures were tied to each other for added security. The shaft sutures were placed in [id number] fashion around the tuberosity fracture fragments anteriorly and posteriorly to secure the tuberosity fracture fragments to the shaft. The repair was stable with passive range of motion and range of motion was 130 degrees forward elevation 90 degrees of abduction 70 degrees of internal and ex ternal rotation without any tension on the repair. The pectoralis tendon was repaired with [id number] #2 FiberWire sutures. The sutures were passed through the biceps tendon to reinforce the biceps tenodesis. After further saline irrigation 2 Hemovac drains were brought out laterally. The deltopectoral interval was repaired with bslboc-[id number]-dazoj #1 Vicryl sutures. The subcutaneous tissue closed into 2-0 Vicryl sutures. Skin was closed with hortencia. Sterile dressings were applied and a shoulder immobilizer. Ben TELLEZ was my mate first and assisted throughout the procedure including prepping draping arm positioning soft tissue retraction suture management wound closure and postop care the patient. I attest to the content of the Intraoperative Record and any orders documented therein. Any exceptions are noted below.
[2021-04-04] MEDS ORDERED: NALOXONE HCL 0.4 MG/1 ML VIAL/CARP IV PRN (19:49)
[2021-04-04] MEDS ORDERED: bisacodyL 10 MG SUPP PR PRN (19:49)
[2021-04-04] MEDS ORDERED: MAGNESIUM HYDROXIDE SUSP 30 ML UDC PO PRN (19:49)
--- NOTE | 2021-04-04 19:53 | XRay Report ---
XR shoulder LT min 2V routine HISTORY: 70 years-old Female Post shoulder surgery left shoulder total joint arthroplasty COMPARISON: 04/03/2021 TECHNIQUE: 2 views of the left shoulder FINDINGS: Reverse total joint arthroplasty demonstrates satisfactory alignment. No acute fracture or unexpected opaque foreign body. Overlying skin hortencia are present along with expected postoperative soft tissu e swelling and deep tissue air with surgical drainage catheter. IMPRESSION: Reverse total joint arthroplasty with expected postoperative changes. ACT 112: Negative or not required by law. The above report was generated using voice recognition software. It may contain grammatical, syntax o r spelling errors. Electronically signed by: Murphy Smith M.D. 04/04/2021 7:52 PM
--- NOTE | 2021-04-04 19:55 | Anesthesiology Progress Note ---
Date of Service April 04, 2021 Anesthesia Post Procedure Vital Signs Vital Signs: Temp Pulse Pulse Resp BP Pulse Ox 04/04/21 19:30 97.9 F 87 14 147/69 H 92 04/04/21 19:20 97 H 16 129/60 92 04/04/21 19:10 85 14 144/66 H 93 04/04/21 19:00 89 18 137/72 95 04/04/21 18:51 97.5 F L 71 19 131/104 H 95 04/04/21 15:13 80 18 96 04/04/21 14:30 99.5 F 18 L 18 127/60 90 04/04/21 07:19 98.1 F 81 16 109/65 92 04/03/21 23:09 99.9 F H 89 18 136/70 92 Pain Intensity Left: Pain Intensity: 10 Left Shoulder: Pain Intensity: 2 Transfer of Care Handoff Completed per policy Notes Mental Status: alert / awake / arousable and participated in evaluation Patient Amnestic to Procedure: Yes Nausea / Vomiting: adequately controlled Pain: adequately controlled Airway Patency, RR, SpO2: stable & adequate BP & HR: stable & adequate Hydration State: stable & adequate Anesthetic Complications: no major complications apparent and Pt Satisfied with anesthetic care
[2021-04-04] MEDS: PARoxetine HCL 20 MG TAB PO SCH (20:10)
[2021-04-04] MEDS: ATORVASTATIN 10 MG TAB PO SCH (20:10)
[2021-04-04] MEDS: SODIUM CHLORIDE 0.9% 1000ML 1,000 ML IV SCH (20:11)
[2021-04-04] MEDS ORDERED: GLUCOSE 40% GEL 15 GM TUBE PO PRN (23:58)
[2021-04-04] MEDS ORDERED: GLUCOSE 10 TABS/TUBE PO PRN (23:58)
[2021-04-04] MEDS ORDERED: GLUCAGON FOR INJ 1 MG VIAL SQ PRN (23:58)
[2021-04-04] MEDS ORDERED: CARBOHYDRATES FOR HYPOGLYCEMIA PO PRN (23:58)
[2021-04-04] MEDS ORDERED: DEXTROSE 50% 50 ML SYRINGE IV PRN (23:58)
[2021-04-05] MEDS: ACETAMINOPHEN 325 MG TAB PO SCH ×5 (00:09→23:30)
[2021-04-05] MEDS: ceFAZolin 2000MG 2,000 MG/15 ML SYR IV SCH ×2 (00:09→07:49)
[2021-04-05] MEDS: SODIUM CHLORIDE 0.9% 1000ML 1,000 ML IV SCH (05:41)
[2021-04-05] MEDS: LEVOTHYROXINE SODIUM 100 MCG TABLET PO SCH (05:42)
[2021-04-05 07:36] LABS: Hematocrit (blood only) 32.3 % (37-47); Mean Corpuscular Hemoglobin 31.1 pg (25-34); Mean Corpuscular Hgb Conc 34.1 g/dL (32-36); Mean Corpuscular Volume 91.2 fL (80-100); RDW Coefficient of Variation 13.3 % (11.5-14.5); RDW Standard Deviation 44.6 fL (36.4-46.3); Red Blood Count 3.54 M/uL (4.2-5.4); White Blood Count 9.06 K/uL (4.8-10.8)
[2021-04-05 07:39] LABS: Mean Platelet Volume 10.2 fL (7.4-10.4); Platelet Count 71 K/uL (130-400)
[2021-04-05] MEDS: FLUTICASONE/VILANTEROL 200/25MCG 14 PUFFS/INHALER INH SCH (07:48)
[2021-04-05] MEDS: MULTIVITAMIN TAB PO SCH (07:49)
[2021-04-05] MEDS: DOCUSATE SODIUM 100 MG CAP PO SCH ×2 (07:49→20:46)
[2021-04-05] MEDS: SENNA 8.6 MG TAB PO SCH (07:50)
[2021-04-05 08:10] LABS: Albumin Level 2.7 gm/dl (3.4-5.0); BUN Creatinine Ratio 25.2 (10-20); Calcium 8.6 mg/dl (8.5-10.1); Creatinine Clr Calc Pharmacy 78.3 ml/min; Est GFR (African American) 101.4 ml/min; Est GFR (Non-African American) 87.5 ml/min; Magnesium 2.2 mg/dl (1.8-2.4); Potassium 4.1 mmol/L (3.5-5.1)
[2021-04-05 08:12] LABS: Albumin Globulin Ratio 0.7 (0.9-2); Bilirubin,Total 0.6 mg/dl (0.2-1); Globulin 3.6 gm/dl (2.5-4.0); Total Protein 6.3 gm/dl (6.4-8.2)
[2021-04-05 08:16] LABS: Basophils # (auto) 0.01 K/uL (0-0.2); Basophils % (auto) 0.1 %; Eosinophils # (auto) 0.01 K/uL (0-0.5); Eosinophils % (auto) 0.1 %; Immature Granulocytes # (auto) 0.03 K/uL (0.00-0.02); Immature Granulocytes % (auto) 0.3 %; Lymphocytes # (auto) 0.87 K/uL (1.2-3.4); Lymphocytes % (auto) 9.6 %; Monocytes % (auto) 6.6 %; Neutrophils # (auto) 7.54 K/uL (1.4-6.5); Neutrophils % (auto) 83.3 %
[2021-04-05] MEDS: INSULIN ASPART 100 UNITS/ML 3 ML PEN SC SCH ×4 (08:49→20:46)
--- NOTE | 2021-04-05 09:00 | Orthopedic Progress Note ---
Date of Service April 05, 2021 Assessment & Plan (1) Left humeral fracture: Plan: POD 1 s/p Fracture Reverse TSA Nondisplaced fracture left anterior acetablulum PT/OT. NWB LUE; PWB LLE Minimal PT for shoulder at this point. Hip precautions for left hip for now. Discussed with patient. DVT prophylaxis - SCD's. Will discuss with Med service. Pain management as written. Plts 71 today DC planning - Pt lives alone. She will need Rehab vs SNF prior to returning home. Admission and Anticipated Discharge Date Admission Date: April 03, 2021 Subjective POD 1 Pt sitting up in bed eating breakfast. Feels good this AM. Pain controlled. Denies SOB, CP, LH. No new complaints. Physical Exam Physical Exam: Dressings C/D/I. Sling in place. 50ml from HV this AM. Sensation is better in her fingers today. Slight tingling only. Moving fingers w ell. Cap refill < 2 seconds. Results & Data ([facility]) Vital Signs (Past 12 Hours) Vital Signs Temp Pulse Pulse Resp BP Pulse Ox 04/05/21 07:22 37.0 C 76 18 118/65 91 04/05/21 02:57 36.9 C 71 16 113/66 94 04/04/21 22:45 37.0 C 77 16 115/58 L 94 04/04/21 21:45 36.7 C 72 16 114/65 96 Laboratory Results Laboratory Results WBC 9.06 K/uL (4.8-10.8) 04/05/21 06:26 RBC 3.54 M/uL (4.2-5.4) L 04/05/21 06:26 Hgb 11.0 g/dL (12.0-16.0) L 04/05/21 06:26 Hct 32.3 % (37-47) L 04/05/21 06:26 MCV 91.2 fL (80-100) 04/05/21 06:26 MCH 31.1 pg (25-34) 04/05/21 06:26 MCHC 34.1 g/dL (32-36) 04/05/21 06:26 RDW Std Deviation 44.6 fL (36.4-46.3) 04/05/21 06:26 RDW Coeff of Reece 13.3 % (11.5-14.5) 04/05/21 06:26 Plt Count 71 K/uL (130-400) L 04/05/21 06:26 MPV 10.2 fL (7.4-10.4) 04/05/21 06:26 Immature Gran % (Auto) 0.3 % 04/05/21 06:26 Neut % (Auto) 83.3 % 04/05/21 06:26 Lymph % (Auto) 9.6 % 04/05/21 06:26 [place] % (Auto) 6.6 % 04/05/21 06:26 Eos % (Auto) 0.1 % 04/05/21 06:26 Baso % (Auto) 0.1 % 04/05/21 06:26 Neut # (Auto) 7.54 K/uL (1.4-6.5) H 04/05/21 06:26 Lymph # (Auto) 0.87 K/uL (1.2-3.4) L 04/05/21 06:26 [place] # (Auto) 0.60 K/uL (0.11-0.59) H 04/05/21 06:26 Eos # (Auto) 0.01 K/uL (0-0.5) 04/05/21 06:26 Baso # (Auto) 0.01 K/uL (0-0.2) 04/05/21 06:26 Immature Gran # (Auto) 0.03 K/uL (0.00-0.02) H 04/05/21 06:26 Platelet Estimate Decreased (Normal) L 04/03/21 Unknown PT 12.2 Seconds (9.0-12.0) H 04/04/21 06:59 INR 1.2 (0.9-1.1) H 04/04/21 06:59 Sodium 138 mmol/L (136-145) 04/05/21 06:26 Potassium 4.1 mmol/L (3.5-5.1) 04/05/21 06:26 Chloride 109 mmol/L (98-107) H 04/05/21 06:26 Carbon Dioxide 22 mmol/L (21-32) 04/05/21 06:26 Anion Gap 8.0 (3-11) 04/05/21 06:26 BUN 18 mg/dl (7-18) 04/05/21 06:26 Creatinine 0.71 mg/dl (0.6-1.2) 04/05/21 06:26 Est Cr Clr Drug Dosing 78.3 ml/min 04/05/21 06:26 Est GFR ( Amer) 101.4 ml/min 04/05/21 06:26 Est GFR (Non-Af Amer) 87.5 ml/min 04/05/21 06:26 BUN/Creatinine Ratio 25.2 (10-20) H 04/05/21 06:26 Glucose 129 mg/dl (70-99) H 04/05/21 06:26 POC Glucose 124 mg/dl (70-99) H 04/05/21 08:01 Calcium 8.6 mg/dl (8.5-10.1) 04/05/21 06:26 Magnesium 2.2 mg/dl (1.8-2.4) 04/05/21 06:26 Total Bilirubin 0.6 mg/dl (0.2-1) 04/05/21 06:26 AST 32 U/L (15-37) 04/05/21 06:26 ALT 22 U/L (12-78) 04/05/21 06:26 Alkaline Phosphatase 73 U/L (45-117) 04/05/21 06:26 Troponin I < 0.015 ng/ml (0-0.045) 04/03/21 14:38 Total Protein 6.3 gm/dl (6.4-8.2) L 04/05/21 06:26 Albumin 2.7 gm/dl (3.4-5.0) L 04/05/21 06:26 Globulin 3.6 gm/dl (2.5-4.0) 04/05/21 06:26 Albumin/Globulin Ratio 0.7 (0.9-2) L 04/05/21 06:26 COVID-19 Eval Order Covid19 at [facility] 04/03/21 14:40 SARS-CoV-2 (PCR) NEGATIVE (Negative) 04/03/21 14:40 Blood Type O Negative 04/04/21 12:56 Antibody Screen NEGATIVE 04/04/21 12:[address] 04/03/21 15:55 CT hip LT wo con CLINICAL HISTORY: Left hip pain following fall. COMPARISON STUDY: Pelvis and left hip radiographs performed earlier today. TECHNIQUE: Axial images of the left hip were obtained without IV contrast. Sagittal and coronal reconstructions were viewed. Automated exposure control was utilized for the study. A dose lowering technique was utilized adhering to the principles of ALARA. FINDINGS: Please note that the CT of the abdomen and pelvis will be reported separately. Note is made of an acute comminuted nondisplaced fracture the anterior wall of the left acetabulum. There is an additional acute nondisplaced fracture of the left inferior pubic ramus. No acute proximal left femoral frac ture is noted. Alignment of the left hip is anatomic. Mild left hip osteoarthritis. No large pelvic hematoma is identified. There may be a small amount of intramuscular hemorrhage within the left obturator internus. IMPRESSION: 1. Acute comminuted nondisplaced fracture the anterior wall of the left acetabulum. Acute nondisplaced fracture of the left inferior pubic ramus. 2. No acute proximal left femoral fracture. 3. Suspected small amount of intramuscular hemorrhage within the left obturator internus. Shoulder X-Ray 04/04/21 19:12 XR shoulder LT min 2V routine HISTORY: 70 years-old Female Post shoulder surgery left shoulder total joint arthroplasty COMPARISON: 04/03/2021 TECHNIQUE: 2 views of the left shoulder FINDINGS: Reverse total joint arthroplasty demonstrates satisfactory alignment. No acute fracture or unexpected opaque foreign body. Overlying skin hortencia are present along with expected postoperative soft tissue swelling and deep tissue air with surgical drainage catheter. IMPRESSION: Reverse total joint arthroplasty with expected postoperative changes. ACT 112: Negative or not required by law. The above report was generated using voice recognition software. It may contain grammatical, syntax or spelling errors. Electronically signed by: Murphy Smith M.D. 04/04/2021 7:52 PM (1) Left humeral fracture Encounter type: initial encounter Fracture alignment: displaced Fracture type: closed Humerus Location: proximal
[2021-04-05] MEDS: HYDROmorphone HCL 2 MG TAB PO PRN ×4 (09:19→23:30)
[2021-04-05] MEDS: PANTOprazole 40 MG in SYRINGE 0 ML IV SCH (11:16)
--- NOTE | 2021-04-05 11:31 | Hospitalist Progress Note ---
Date of Service April 05, 2021 Assessment & Plan (1) Left humeral fracture: Plan: This is a 70-year-old female that lives alone. She had a mechanical fall resulting in fracture of left humerus, left acetabulum of hip, and left pubic bone. She came to the emergency room department via ambulance. Now s/p Left reverse total shoulder arthroplasty with Dr. Zamora on 04/04 Doing well post-op Hemovac drain in place Hgb down slightly since admission to 11.0, HD stable post-op pain control with dilaudid as is allergic to other opioids Continue with sling for immobilization continue bowel regimen check CBC again in AM--> if plts>50 and hgb stable, start Lovenox 30mg SQ once daily more for hip fracture/immobility than shoulder fracture/TSA PT/OT recommend rehab (2) Fall: Plan: This was a mechanical fall. There is no loss of consciousness. Patient had no dizziness or other contributing factors. Discussion with patient about returning home. She lives alone. Patient agrees to rehab facility on discharge PT/OT (3) Thrombocytopenia: Plan: Patient reports that this is been ongoing for quite some time and that her baseline platelet count has been drifting downward Likely secondary to cirrhosis and splenomegaly Platelets this morning are at 71 and stable from previous Imaging reviewed. Ruled out intraabdominal hemorrhage follow CBC ok to use Lovenox unless plts<50k (4) Asthma: Plan: Generally well controlled Patient has an HFA inhaler as well as nebulizer at home No adventitious sounds on auscultation Her medications include albuterol HFA rescue inhaler, fluticasone 500/salmeterol 50 (Advair) Oxygenating well. No bronchospasm. Most recent pulmonary function testing with spirometry only. This was done 04/27/2019. This reflected mild obstructive airway disease with no restrictive disease FVC 2.55 or 80% of predicted FEV1 1.87 or 76% of predicted FEV1/FVC 73% which is 95% of predicted DLCO is not available (5) Esophageal reflux: Plan: No evidence of epigastric discomfort Omeprazole at home Continue pantoprazole while inpatient (6) Hypertension: Plan: No chest pain or tightness Holding home losartan 100 mg daily Hemodynamically stable EKG with a rate of 83 bpm QT interval 394 ms QTC 462 ms EKG interpretation by Dr. 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 Abnormal ECG When compared with ECG of 03-OCT-2006 07:45, Anteroseptal infarct is now Present Inferior infarct is now Present No known cardiac history and no angina (7) Hyperlipidemia: Plan: Continue atorvastatin 10 mg daily-consider increasing to high intensity given known mesenteric artery stenosis-defer to PCP (8) Hypothyroidism: Plan: Continue levothyroxine 100 mcg daily TSH normal in 10/2020 (9) Diabetes mellitus, type II: Plan: Diet controlled No medications or insulin use at home Hemoglobin A1c 5.5% NovoLog sliding scale insulin while inpatient (10) Hepatic cirrhosis: Plan: No history of alcohol abuse Coagulation factors within normal limits INR 1.2 Outpatient management (11) Vascular disease: Plan: Mesenteric stenosis Continue statin should be on ASA also-defer to PCP (12) DVT prophylaxis: Plan: Plan to start Lovenox 30mg SQ once daily x 2 weeks in the AM if platelets remain stable and >50k GUILLERMINA hose/SCDs Dispo-continued stay, needs rehab placement, possibly dc to rehab in 1-2 days Admission and Anticipated Discharge Date Admission Date: April 03, 2021 Anticipated date of discharge: 04/06/21 Subjective Pt feeling better today than yesterday, pain controlled in shoulder. With left hip pain with ambulating with PT today. Is OOB to chair. Rhodes still inplace Denies CP, SOB. Abd pain is gone today. No BM yet Discussed care with Ortho PA Review of Systems Review of Systems: All systems reviewed & are unremarkable except as noted in HPI & below Physical Exam Constitutional: WD/WN, vitals as above Eyes: + anicteric sclerae Neck: trachea midline, no thyromegaly Respiratory: normal respiratory effort, lungs clear to auscultation Cardiovascular: RRR, no murmur, no edema Chest (Breasts): Chest: normal inspection of chest Gastrointestinal (Abdomen): normal bowel sounds, soft, nontender, no hepatosplenomegaly Musculoskeletal: Extremities: + extremities abnormal to inspection (LUE in shoulder immobilizer,Hemovac drain with bloody drainage), no cyanosis and no clubbing Skin: no rashes, warm and dry Neurologic: moves all extremities and awake; no focal motor deficits Psychiatric: A+Ox3, euthymic affect Lymphatic: no lymphedema Results & Data Results & Data ([facility]) Vital Signs (Past 12 Hours) Vital Signs Temp Pulse Pulse Resp BP Pulse Ox 04/05/21 07:22 37.0 C 76 18 118/65 91 04/05/21 02:57 36.9 C 71 16 113/66 94 Laboratory Results 04/05/21 04/05/21 04/05/21 Range/Units 08:01 06:26 06:26 WBC 9.06 (4.8-10.8) K/uL RBC 3.54 L (4.2-5.4) M/uL Hgb 11.0 L (12.0-16.0) g/dL Hct 32.3 L (37-47) % MCV 91.2 (80-100) fL MCH 31.1 (25-34) pg MCHC 34.1 (32-36) g/dL RDW Std Deviation 44.6 (36.4-46.3) fL RDW Coeff of Reece 13.3 (11.5-14.5) % Plt Count 71 L (130-400) K/uL MPV 10.2 (7.4-10.4) fL Immature Gran % (Auto) 0.3 % Neut % (Auto) 83.3 % Lymph % (Auto) 9.6 % [place] % (Auto) 6.6 % Eos % (Auto) 0.1 % Baso % (Auto) 0.1 % Neut # (Auto) 7.54 H (1.4-6.5) K/uL Lymph # (Auto) 0.87 L (1.2-3.4) K/uL [place] # (Auto) 0.60 H (0.11-0.59) K/uL Eos # (Auto) 0.01 (0-0.5) K/uL Baso # (Auto) 0.01 (0-0.2) K/uL Immature Gran # (Auto) 0.03 H (0.00-0.02) K/uL Sodium 138 (136-145) mmol/L Potassium 4.1 (3.5-5.1) mmol/L Chloride 109 H (98-107) mmol/L Carbon Dioxide 22 (21-32) mmol/L Anion Gap 8.0 (3-11) BUN 18 (7-18) mg/dl Creatinine 0.71 (0.6-1.2) mg/dl Est Cr Clr Drug Dosing 78.3 ml/min Est GFR ( Amer) 101.4 ml/min Est GFR (Non-Af Amer) 87.5 ml/min BUN/Creatinine Ratio 25.2 H (10-20) Glucose 129 H (70-99) mg/dl POC Glucose 124 H (70-99) mg/dl Calcium 8.6 (8.5-10.1) mg/dl Magnesium 2.2 (1.8-2.4) mg/dl Total Bilirubin 0.6 (0.2-1) mg/dl AST 32 (15-37) U/L ALT 22 (12-78) U/L Alkaline Phosphatase 73 (45-117) U/L Total Protein 6.3 L (6.4-8.2) gm/dl Albumin 2.7 L (3.4-5.0) gm/dl Globulin 3.6 (2.5-4.0) gm/dl Albumin/Globulin Ratio 0.7 L (0.9-2) Blood Type Antibody Screen 04/04/21 04/04/21 04/04/21 Range/Units 20:46 19:06 12:56 WBC (4.8-10.8) K/uL RBC (4.2-5.4) M/uL Hgb (12.0-16.0) g/dL Hct (37-47) % MCV (80-100) fL MCH (25-34) pg MCHC (32-36) g/dL RDW Std Deviation (36.4-46.3) fL RDW Coeff of Reece (11.5-14.5) % Plt Count (130-400) K/uL MPV (7.4-10.4) fL Immature Gran % (Auto) % Neut % (Auto) % Lymph % (Auto) % [place] % (Auto) % Eos % (Auto) % Baso % (Auto) % Neut # (Auto) (1.4-6.5) K/uL Lymph # (Auto) (1.2-3.4) K/uL [place] # (Auto) (0.11-0.59) K/uL Eos # (Auto) (0-0.5) K/uL Baso # (Auto) (0-0.2) K/uL Immature Gran # (Auto) (0.00-0.02) K/uL Sodium (136-145) mmol/L Potassium (3.5-5.1) mmol/L Chloride (98-107) mmol/L Carbon Dioxide (21-32) mmol/L Anion Gap (3-11) BUN (7-18) mg/dl Creatinine (0.6-1.2) mg/dl Est Cr Clr Drug Dosing ml/min Est GFR ( Amer) ml/min Est GFR (Non-Af Amer) ml/min BUN/Creatinine Ratio (10-20) Glucose (70-99) mg/dl POC Glucose 128 H 127 H (70-99) mg/dl Calcium (8.5-10.1) mg/dl Magnesium (1.8-2.4) mg/dl Total Bilirubin (0.2-1) mg/dl AST (15-37) U/L ALT (12-78) U/L Alkaline Phosphatase (45-117) U/L Total Protein (6.4-8.2) gm/dl Albumin (3.4-5.0) gm/dl Globulin (2.5-4.0) gm/dl Albumin/Globulin Ratio (0.9-2) Blood Type O Negative Antibody Screen NEGATIVE PG Care Time/CCT Total # of Minutes Spent Total Time Spent with Patient: Total time spent is greater than 50% in coordination of care (as documented) at patient's floor/unit and/or counseling patient: Coding Level of Care Code 08469 Subseq Hosp Care Lvl 2 Diagnoses Left humeral fracture S42.302A Encounter type: initial encounter Fracture alignment: displaced Fracture type: closed Humerus Location: proximal Fall W19.XXXA Encounter type: initial encounter Thrombocytopenia D69.6 Asthma J45.909 Esophageal reflux K21.9 Hypertension I10 Hyperlipidemia E78.5 Hypothyroidism E03.9 Diabetes mellitus, type II E11.9 Hepatic cirrhosis K74.60 Vascular disease I99.9 DVT prophylaxis Z29.9 (1) Left humeral fracture Encounter type: initial encounter Fracture alignment: displaced Fracture type: closed Humerus Location: proximal (2) Fall Encounter type: initial encounter Qualified Code(s): W19.XXXA - Unspecified fall, initial encounter
[2021-04-05 16:33] LABS: Appearance Urine Clear (Clear); Bacteria Urine Automated Negative (Negative); Bilirubin Urine Negative (Negative); Blood Urine Negative (Negative); Color Urine Dark Yellow; Epithelial Cell Urine Auto 20-30 /lpf (0-5); Glucose Urine UA Negative (Negative); Ketones Urine Trace (Negative); Leukocyte Esterase Urine Trace (Negative); Nitrite Urine Negative (Negative); Protein Urine Negative (Negative); Specific Gravity Urine 1.033 (1.000-1.030); Urobilinogen Urine Negative (Negative); pH Urine 5.5 (4.5-7.5)
[2021-04-05] MEDS: MoRPHine SULFATE 4 MG/ML 1 ML CARP\\VIAL IV PRN ×2 (17:23→20:45)
[2021-04-05] MEDS: PARoxetine HCL 20 MG TAB PO SCH (20:46)
[2021-04-05] MEDS: ATORVASTATIN 10 MG TAB PO SCH (20:46)
[2021-04-06] MEDS: MoRPHine SULFATE 4 MG/ML 1 ML CARP\\VIAL IV PRN (05:05)
[2021-04-06] MEDS: ACETAMINOPHEN 325 MG TAB PO SCH ×3 (05:06→18:00)
[2021-04-06] MEDS: LEVOTHYROXINE SODIUM 100 MCG TABLET PO SCH (05:29)
[2021-04-06 07:17] LABS: Hematocrit (blood only) 32.5 % (37-47); Hemoglobin 11.1 g/dL (12.0-16.0); Mean Corpuscular Hemoglobin 31.1 pg (25-34); Mean Corpuscular Hgb Conc 34.2 g/dL (32-36); RDW Coefficient of Variation 13.5 % (11.5-14.5); RDW Standard Deviation 44.9 fL (36.4-46.3); Red Blood Count 3.57 M/uL (4.2-5.4); White Blood Count 12.94 K/uL (4.8-10.8)
[2021-04-06 07:29] LABS: Mean Platelet Volume 9.4 fL (7.4-10.4); Platelet Count 98 K/uL (130-400)
[2021-04-06 07:44] LABS: Albumin Level 2.9 gm/dl (3.4-5.0); BUN Creatinine Ratio 26.2 (10-20); Calcium 8.5 mg/dl (8.5-10.1); Creatinine Clr Calc Pharmacy 85.6 ml/min; Est GFR (African American) 105.7 ml/min; Est GFR (Non-African American) 91.2 ml/min; Magnesium 2.1 mg/dl (1.8-2.4)
[2021-04-06 07:47] LABS: Albumin Globulin Ratio 0.8 (0.9-2); Bilirubin,Total 0.7 mg/dl (0.2-1); Globulin 3.7 gm/dl (2.5-4.0); Total Protein 6.6 gm/dl (6.4-8.2)
[2021-04-06 08:09] LABS: Basophils # (auto) 0.03 K/uL (0-0.2); Basophils % (auto) 0.2 %; Eosinophils # (auto) 0.28 K/uL (0-0.5); Eosinophils % (auto) 2.2 %; Immature Granulocytes # (auto) 0.09 K/uL (0.00-0.02); Immature Granulocytes % (auto) 0.7 %; Lymphocytes # (auto) 2.27 K/uL (1.2-3.4); Lymphocytes % (auto) 17.5 %; Monocytes # (auto) 1.57 K/uL (0.11-0.59); Monocytes % (auto) 12.1 %; Neutrophils % (auto) 67.3 %
[2021-04-06] MEDS: HYDROmorphone HCL 2 MG TAB PO PRN ×2 (08:12→21:35)
[2021-04-06] MEDS: FLUTICASONE/VILANTEROL 200/25MCG 14 PUFFS/INHALER INH SCH (09:35)
[2021-04-06] MEDS: MULTIVITAMIN TAB PO SCH (09:35)
[2021-04-06] MEDS: SENNA 8.6 MG TAB PO SCH (09:35)
[2021-04-06] MEDS: DOCUSATE SODIUM 100 MG CAP PO SCH ×2 (09:35→20:52)
[2021-04-06] MEDS: PANTOprazole 40 MG TAB PO SCH (09:35)
[2021-04-06] MEDS: INSULIN ASPART 100 UNITS/ML 3 ML PEN SC SCH ×4 (09:36→20:53)
--- NOTE | 2021-04-06 09:39 | Orthopedic Progress Note ---
Date of Service April 06, 2021 Assessment & Plan (1) Left humeral fracture: Plan: Postoperative day #2 status post left reverse total shoulder arthroplasty for comminuted proximal humerus fracture -Passive range of motion only to the left shoulder. No active abduction. Recommend mostly passive pendulum exercises at this point. -Drain output minimal. We will have nursing pull the drain today. -She lives alone and is requiring quite a bit of assistance to get up and out of bed. She will likely require rehab placement after discharge. -Follow-up in orthopedics clinic with Dr. Zamora 10 to 14 days after surgery. Please call [facility] at [phone] to make an appointment. -Orthopedics-related discharge instructions are listed in the Discharge section of the chart. -Orthopedics will sign off at this time. Please call with questions. Admission and Anticipated Discharge Date Admission Date: April 03, 2021 Subjective Patient appeared to be resting comfortably and in no distress, but reports fairly significant pain in her left shoulder. She has trouble staying awake during conversation, but is easily arousable and pleasant and interactive of. She states that she had a lot of trouble getting out of bed with therapy yesterday, and required quite a bit of assistance. She lives alone. Physical Exam Physical Exam: Left shoulder dressings and drain are clean, dry, and intact. Hemovac drain output has decreased substantially over the past 24 hours, and had no output over the last shift. Motor and sensory function is intact distally in the hand in the median, radial, and ulnar nerve distributions. Sensation is intact in the axillary nerve distribution, but motor function was not tested due to the fracture and recent surgery. Results & Data ([facility]) Vital Signs (Past 12 Hours) Vital Signs Temp Pulse Resp BP Pulse Ox 04/06/21 06:22 37.1 C 88 14 119/69 92 04/05/21 22:58 37.2 C 82 18 139/64 93 Diagnostic Findings Left shoulder postoperative x-rays were reviewed. They show a cemented reverse total shoulder arthroplasty in good alignment with no dislocation. Good reduction of the tuberosity fragments without displacement. (1) Left humeral fracture Encounter type: initial encounter Fracture alignment: displaced Fracture type: closed Humerus Location: proximal
[2021-04-06] MEDS: ENOXAPARIN INJ 30 MG/0.3 ML SYR SQ SCH (10:11)
--- NOTE | 2021-04-06 18:06 | Hospitalist Progress Note ---
Date of Service April 06, 2021 Assessment & Plan (1) Left humeral fracture: Plan: This is a 70-year-old female that lives alone. She had a mechanical fall resulting in fracture of left humerus, left acetabulum of hip, and left pubic bone. She came to the emergency room department via ambulance. Now s/p Left reverse total shoulder arthroplasty with Dr. Zamora on 04/04 Doing well post-op with some expected pain Hemovac drain removed on 04/06 Hgb down slightly since admission to 11.2, HD stable post-op pain control with p.o. dilaudid as is allergic to other opioids Continue with sling for immobilization, allowed to do passive pendulum like shira on of the left shoulder only as per orthopedics continue bowel regimen with senna, docusate, MiraLAX as needed CBC with plts>50 and hgb stable, will go ahead and start Lovenox 30mg SQ once daily more for hip fracture/immobility and continue for 2 weeks PT/OT recommend rehab-awaiting placement -Asked nursing to discontinue her Valdivia catheter (2) Acetabulum fracture, left: Plan: As above Pain control (3) Pelvic fracture: Plan: As above, fracture of the left inferior pubic ramus that is nondisplaced secondary to fall (4) Fall: Plan: This was a mechanical fall. There is no loss of consciousness. Patient had no dizziness or other contributing factors. Discussion with patient about returning home. She lives alone. Patient agrees to rehab facility on discharge PT/OT (5) Thrombocytopenia: Plan: Patient reports that this is been ongoing for quite some time and that her baseline platelet count has been drifting downward Likely secondary to cirrhosis and splenomegaly Platelets this morning are at improved from VS at 98 Imaging reviewed. Ruled out intraabdominal hemorrhage follow CBC again in the morning ok to use Lovenox unless plts<50k (6) Asthma: Plan: Generally well controlled Patient has an HFA inhaler as well as nebulizer at home No adventitious sounds on auscultation Her medications include albuterol HFA rescue inhaler, fluticasone 500/salmeterol 50 (Advair) Oxygenating well. No bronchospasm. Most recent pulmonary function testing with spirometry only. This was done 04/27/2019. This reflected mild obstructive airway disease with no restrictive disease FVC 2.55 or 80% of predicted FEV1 1.87 or 76% of predicted FEV1/FVC 73% which is 95% of predicted DLCO is not available (7) Esophageal reflux: Plan: No evidence of epigastric discomfort Omeprazole at home Continue pantoprazole while inpatient (8) Hypertension: Plan: No chest pain or tightness Holding home losartan 100 mg daily Hemodynamically stable EKG with a rate of 83 bpm QT interval 394 ms QTC 462 ms EKG interpretation by Dr. 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 Abnormal ECG When compared with ECG of 03-OCT-2006 07:45, Anteroseptal infarct is now Present Inferior infarct is now Present No known cardiac history and no angina (9) Hyperlipidemia: Plan: Continue atorvastatin 10 mg daily-consider increasing to high intensity given known mesenteric artery stenosis-defer to PCP (10) Hypothyroidism: Plan: Continue levothyroxine 100 mcg daily TSH normal in 10/2020 (11) Diabetes mellitus, type II: Plan: Diet controlled No medications or insulin use at home Hemoglobin A1c 5.5% NovoLog sliding scale insulin while inpatient (12) Hepatic cirrhosis: Plan: No history of alcohol abuse With thrombocytopenia Coagulation factors within normal limits INR 1.2 Outpatient management (13) Vascular disease: Plan: Mesenteric stenosis Continue statin should be on ASA also-defer to PCP (14) DVT prophylaxis: Plan: Will start Lovenox 30mg SQ once daily x 2 weeks-we will need to follow CBC after discharge to ensure platelets do not go below 50 GUILLERMINA hose/SCDs Dispo-medically stable for discharge, but awaiting rehab placement-it seems she needs an insurance authorization and this is not possible over the weekend Admission and Anticipated Discharge Date Admission Date: April 03, 2021 Subjective Patient having some pain more so in the shoulder today, and only in the hip with transfers from bed to chair. She is requiring a great amount of assistance. She is hesitant to take a Valdivia catheter out due to concern for not being able to get to the toilet on her own, but reassurance was given that she would have assistance from nursing staff. Denies chest pain or shortness of breath, no nausea or vomiting, no abdominal pain. She has not moved her bowels since she has been in the hospital. Review of Systems Review of Systems: All systems reviewed & are unremarkable except as noted in HPI & below Physical Exam Constitutional: WD/WN, vitals as above Eyes: + anicteric sclerae Neck: trachea midline, no thyromegaly Respiratory: normal respiratory effort, lungs clear to auscultation Cardiovascular: RRR, no murmur, no edema Chest (Breasts): Chest: normal inspection of chest Gastrointestinal (Abdomen): normal bowel sounds, soft, nontender, no hepatosplenomegaly Musculoskeletal: Extremities: + extremities abnormal to inspection (LUE in shoulder immobilizer,Hemovac drain with bloody drainage), no cyanosis and no clubbing Skin: no rashes, warm and dry Neurologic: moves all extremities and awake; no focal motor deficits Psychiatric: A+Ox3, euthymic affect Lymphatic: no lymphedema Results & Data Results & Data ([facility]) Vital Signs (Past 12 Hours) Vital Signs Temp Pulse Pulse Resp BP Pulse Ox 04/06/21 16:00 37.1 C 85 18 135/68 90 04/06/21 06:22 37.1 C 88 14 119/69 92 PG Care Time/CCT Total # of Minutes Spent Total Time Spent with Patient: Total time spent is greater than 50% in coordination of care (as documented) at patient's floor/unit and/or counseling patient: Coding Level of Care Code 02705 Subseq Hosp Care Lvl 2 Diagnoses Left humeral fracture S42.302A Encounter type: initial encounter Fracture alignment: displaced Fracture type: closed Humerus Location: proximal Fall W19.XXXA Encounter type: initial encounter Thrombocytopenia D69.6 Asthma J45.909 Esophageal reflux K21.9 Hypertension I10 Hyperlipidemia E78.5 Hypothyroidism E03.9 Diabetes mellitus, type II E11.9 Hepatic cirrhosis K74.60 Vascular disease I99.9 DVT prophylaxis Z29.9 Acetabulum fracture, left S32.415A Encounter type: initial encounter Fracture alignment: nondisplaced Fracture type: closed Sublocation of acetabulum: anterior wall Pelvic fracture S32.9XXA (1) Left humeral fracture Encounter type: initial encounter Fracture alignment: displaced Fracture type: closed Humerus Location: proximal (2) Fall Encounter type: initial encounter Qualified Code(s): W19.XXXA - Unspecified fall, initial encounter (3) Acetabulum fracture, left Encounter type: initial encounter Fracture alignment: nondisplaced Fracture type: closed Sublocation of acetabulum: anterior wall Qualified Code(s): S32.415A - Nondisplaced fracture of anterior wall of left acetabulum, initial encounter for closed fracture
[2021-04-06] MEDS: ATORVASTATIN 10 MG TAB PO SCH (20:52)
[2021-04-06] MEDS: PARoxetine HCL 20 MG TAB PO SCH (20:52)
[2021-04-07] MEDS: ACETAMINOPHEN 325 MG TAB PO SCH ×4 (00:32→18:09)
[2021-04-07] MEDS: MoRPHine SULFATE 4 MG/ML 1 ML CARP\\VIAL IV PRN ×2 (00:33→20:19)
[2021-04-07] MEDS: LEVOTHYROXINE SODIUM 100 MCG TABLET PO SCH (05:42)
[2021-04-07 06:16] LABS: Hematocrit (blood only) 27.8 % (37-47); Hemoglobin 9.7 g/dL (12.0-16.0); Mean Corpuscular Hemoglobin 31.6 pg (25-34); Mean Corpuscular Hgb Conc 34.9 g/dL (32-36); Mean Corpuscular Volume 90.6 fL (80-100); RDW Coefficient of Variation 13.5 % (11.5-14.5); RDW Standard Deviation 44.3 fL (36.4-46.3); Red Blood Count 3.07 M/uL (4.2-5.4); White Blood Count 5.75 K/uL (4.8-10.8)
[2021-04-07 06:23] LABS: Mean Platelet Volume 9.6 fL (7.4-10.4); Platelet Count 79 K/uL (130-400)
[2021-04-07 06:44] LABS: Basophils # (auto) 0.02 K/uL (0-0.2); Basophils % (auto) 0.3 %; Eosinophils # (auto) 0.15 K/uL (0-0.5); Eosinophils % (auto) 2.6 %; Immature Granulocytes # (auto) 0.04 K/uL (0.00-0.02); Immature Granulocytes % (auto) 0.7 %; Lymphocytes # (auto) 1.53 K/uL (1.2-3.4); Lymphocytes % (auto) 26.6 %; Monocytes # (auto) 0.73 K/uL (0.11-0.59); Monocytes % (auto) 12.7 %; Neutrophils # (auto) 3.28 K/uL (1.4-6.5); Neutrophils % (auto) 57.1 %
[2021-04-07 06:50] LABS: Albumin Level 2.5 gm/dl (3.4-5.0); BUN Creatinine Ratio 28.5 (10-20); Calcium 8.3 mg/dl (8.5-10.1); Creatinine Clr Calc Pharmacy 104.9 ml/min; Est GFR (African American) 113.1 ml/min; Est GFR (Non-African American) 97.6 ml/min
[2021-04-07 06:52] LABS: Albumin Globulin Ratio 0.8 (0.9-2); Bilirubin,Total 0.6 mg/dl (0.2-1); Globulin 3.2 gm/dl (2.5-4.0); Total Protein 5.7 gm/dl (6.4-8.2)
[2021-04-07] MEDS: INSULIN ASPART 100 UNITS/ML 3 ML PEN SC SCH ×4 (09:31→21:30)
[2021-04-07] MEDS: ENOXAPARIN INJ 30 MG/0.3 ML SYR SQ SCH (09:32)
[2021-04-07] MEDS: DOCUSATE SODIUM 100 MG CAP PO SCH ×2 (09:32→20:24)
[2021-04-07] MEDS: SENNA 8.6 MG TAB PO SCH (09:32)
[2021-04-07] MEDS: MULTIVITAMIN TAB PO SCH (09:32)
[2021-04-07] MEDS: FLUTICASONE/VILANTEROL 200/25MCG 14 PUFFS/INHALER INH SCH (09:32)
[2021-04-07] MEDS: PANTOprazole 40 MG TAB PO SCH (09:32)
[2021-04-07] MEDS: HYDROmorphone HCL 2 MG TAB PO PRN ×2 (09:39→14:03)
[2021-04-07 11:51] LABS: Hematocrit (blood only) 30.4 % (37-47); Hemoglobin 10.3 g/dL (12.0-16.0); Mean Corpuscular Hemoglobin 31.4 pg (25-34); Mean Corpuscular Hgb Conc 33.9 g/dL (32-36); Mean Corpuscular Volume 92.7 fL (80-100); RDW Coefficient of Variation 13.4 % (11.5-14.5); RDW Standard Deviation 45.1 fL (36.4-46.3); Red Blood Count 3.28 M/uL (4.2-5.4)
[2021-04-07 12:00] LABS: Mean Platelet Volume 9.3 fL (7.4-10.4); Platelet Count 92 K/uL (130-400)
[2021-04-07 12:41] LABS: Platelet Estimate CAC (Normal)
--- NOTE | 2021-04-07 13:09 | Hospitalist Progress Note ---
Date of Service April 07, 2021 Assessment & Plan (1) Left humeral fracture: Plan: This is a 70-year-old female that lives alone. She had a mechanical fall resulting in fracture of left humerus, left acetabulum of hip, and left pubic bone. She came to the emergency room department via ambulance. Now s/p Left reverse total shoulder arthroplasty with Dr. Zamora on 04/04 Doing well post-op with some expected pain Hemovac drain removed on 04/06 Hgb down slightly since admission to 9.8 this AM but repeat later today showed increase to 10.3 which I believe is more accurate as was stable x 2 days at 11.0 prior. Remains hemodynamically stable post-op pain control with p.o. dilaudid as is allergic to other opioids Continue with sling for immobilization, allowed to do passive pendulum like motion of the left shoulder only as per orthopedics continue bowel regimen with senna, docusate, MiraLAX as needed CBC with plts>50 and hgb stable, started Lovenox 30mg SQ once daily more for hip fracture/immobility and continue for 2 weeks--> follow CBC q3 days while on this given h/o thrombocytopenia and with pelvic fracture PT/OT recommend rehab-awaiting placement -have since discontinued her Valdivia catheter and is voiding on own, moving bowels (2) Acetabulum fracture, left: Plan: As above Pain control pain is improving allowed to weight bear as tolerated (3) Pelvic fracture: Plan: As above, fracture of the left inferior pubic ramus that is nondisplaced secondary to fall (4) Fall: Plan: This was a mechanical fall. There is no loss of consciousness. Patient had no dizziness or other contributing factors. Discussion with patient about returning home. She lives alone. Patient agrees to rehab facility on discharge PT/OT (5) Thrombocytopenia: Plan: secondary to cirrhosis and splenomegaly, chronic for years Platelets stable in 70-90s Imaging reviewed. Ruled out intraabdominal hemorrhage follow CBC again in the morning and then q3-5 days while on Lovenox ok to use Lovenox unless plts<50k (6) Asthma: Plan: Generally well controlled Patient has an HFA inhaler as well as nebulizer at home No adventitious sounds on auscultation Her medications include albuterol HFA rescue inhaler, fluticasone 500/salmeterol 50 (Advair) Oxygenating well. No bronchospasm. Most recent pulmonary function testing with spirometry only. This was done 04/27/2019. This reflected mild obstructive airway disease with no restrictive disease FVC 2.55 or 80% of predicted FEV1 1.87 or 76% of predicted FEV1/FVC 73% which is 95% of predicted DLCO is not available (7) Esophageal reflux: Plan: No evidence of epigastric discomfort Omeprazole at home Continue pantoprazole while inpatient (8) Hypertension: Plan: No chest pain or tightness Holding home losartan 100 mg daily Hemodynamically stable EKG with a rate of 83 bpm QT interval 394 ms QTC 462 ms EKG interpretation by Dr. 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 Abnormal ECG When compared with ECG of 03-OCT-2006 07:45, Anteroseptal infarct is now Present Inferior infarct is now Present No known cardiac history and no angina (9) Hyperlipidemia: Plan: Continue atorvastatin 10 mg daily-consider increasing to high intensity given known mesenteric artery stenosis-defer to PCP (10) Hypothyroidism: Plan: Continue levothyroxine 100 mcg daily TSH normal in 10/2020 (11) Diabetes mellitus, type II: Plan: Diet controlled No medications or insulin use at home Hemoglobin A1c 5.5% NovoLog sliding scale insulin while inpatient (12) Hepatic cirrhosis: Plan: No history of alcohol abuse With thrombocytopenia Coagulation factors within normal limits INR 1.2 Outpatient management (13) Vascular disease: Plan: Mesenteric stenosis Continue statin should be on ASA also-defer to PCP-would be ok as long as plts>50k (14) DVT prophylaxis: Plan: Will start Lovenox 30mg SQ once daily x 2 weeks-we will need to follow CBC after discharge to ensure platelets do not go below 50 GUILLERMINA hose/SCDs Dispo-medically stable for discharge, but awaiting rehab placement-it seems she needs an insurance authorization and this is not possible over the weekend Admission and Anticipated Discharge Date Admission Date: April 03, 2021 Subjective Pt still having pain in left shoulder but feels left hip pain is improving. SHe is OOB to bedside commode for urinating and finally had a BM yesterday so feels better. No abd pain, no CP, no SOB. Is petey po, no N/V. Is anxious for dc to rehab . Review of Systems Review of Systems: All systems reviewed & are unremarkable except as noted in HPI & below Physical Exam Constitutional: WD/WN, vitals as above Eyes: + anicteric sclerae Neck: trachea midline, no thyromegaly Respiratory: normal respiratory effort, lungs clear to auscultation Cardiovascular: RRR, no murmur, no edema Chest (Breasts): Chest: normal inspection of chest Gastrointestinal (Abdomen): normal bowel sounds, soft, nontender, no hepatosplenomegaly Musculoskeletal: Extremities: + extremities abnormal to inspection (LUE in john ulder immobilizer,left shoulder dressing c/d/i), no cyanosis and no clubbing Skin: no rashes, warm and dry Neurologic: moves all extremities and awake; no focal motor deficits Psychiatric: A+Ox3, euthymic affect Lymphatic: no lymphedema Results & Data Results & Data ([facility]) Vital Signs (Past 12 Hours) Vital Signs Temp Pulse Resp BP Pulse Ox 04/07/21 06:53 36.6 C 71 16 140/61 92 Laboratory Results 04/07/21 04/07/21 04/07/21 Range/Units 12:01 11:39 08:36 WBC 6.20 (4.8-10.8) K/uL RBC 3.28 L (4.2-5.4) M/uL Hgb 10.3 L (12.0-16.0) g/dL Hct 30.4 L (37-47) % MCV 92.7 (80-100) fL MCH 31.4 (25-34) pg MCHC 33.9 (32-36) g/dL RDW Std Deviation 45.1 (36.4-46.3) fL RDW Coeff of Reece 13.4 (11.5-14.5) % Plt Count 92 L (130-400) K/uL MPV 9.3 (7.4-10.4) fL Immature Gran % (Auto) % Neut % (Auto) % Lymph % (Auto) % Smith % (Auto) % Eos % (Auto) % Baso % (Auto) % Neut # (Auto) (1.4-6.5) K/uL Lymph # (Auto) (1.2-3.4) K/uL Smith # (Auto) (0.11-0.59) K/uL Eos # (Auto) (0-0.5) K/uL Baso # (Auto) (0-0.2) K/uL Immature Gran # (Auto) (0.00-0.02) K/uL Platelet Estimate CAC (Normal) Sodium (136-145) mmol/L Potassium (3.5-5.1) mmol/L Chloride (98-107) mmol/L Carbon Dioxide (21-32) mmol/L Anion Gap (3-11) BUN (7-18) mg/dl Creatinine (0.6-1.2) mg/dl Est Cr Clr Drug Dosing ml/min Est GFR ( Amer) ml/min Est GFR (Non-Af Amer) ml/min BUN/Creatinine Ratio (10-20) Glucose (70-99) mg/dl POC Glucose 117 H 108 H (70-99) mg/dl Calcium (8.5-10.1) mg/dl Total Bilirubin (0.2-1) mg/dl AST (15-37) U/L ALT (12-78) U/L Alkaline Phosphatase (45-117) U/L Total Protein (6.4-8.2) gm/dl Albumin (3.4-5.0) gm/dl Globulin (2.5-4.0) gm/dl Albumin/Globulin Ratio (0.9-2) 04/07/21 04/07/21 04/06/21 Range/Units 05:21 05:21 20:33 WBC 5.75 (4.8-10.8) K/uL RBC 3.07 L (4.2-5.4) M/uL Hgb 9.7 L (12.0-16.0) g/dL Hct 27.8 L (37-47) % MCV 90.6 (80-100) fL MCH 31.6 (25-34) pg MCHC 34.9 (32-36) g/dL RDW Std Deviation 44.3 (36.4-46.3) fL RDW Coeff of Reece 13.5 (11.5-14.5) % Plt Count 79 L (130-400) K/uL MPV 9.6 (7.4-10.4) fL Immature Gran % (Auto) 0.7 % Neut % (Auto) 57.1 % Lymph % (Auto) 26.6 % Smith % (Auto) 12.7 % Eos % (Auto) 2.6 % Baso % (Auto) 0.3 % Neut # (Auto) 3.28 (1.4-6.5) K/uL Lymph # (Auto) 1.53 (1.2-3.4) K/uL Smith # (Auto) 0.73 H (0.11-0.59) K/uL Eos # (Auto) 0.15 (0-0.5) K/uL Baso # (Auto) 0.02 (0-0.2) K/uL Immature Gran # (Auto) 0.04 H (0.00-0.02) K/uL Platelet Estimate (Normal) Sodium 140 (136-145) mmol/L Potassium 4.0 (3.5-5.1) mmol/L Chloride 109 H (98-107) mmol/L Carbon Dioxide 26 (21-32) mmol/L Anion Gap 5.0 (3-11) BUN 15 (7-18) mg/dl Creatinine 0.53 L (0.6-1.2) mg/dl Est Cr Clr Drug Dosing 104.9 ml/min Est GFR ( Amer) 113.1 ml/min Est GFR (Non-Af Amer) 97.6 ml/min BUN/Creatinine Ratio 28.5 H (10-20) Glucose 118 H (70-99) mg/dl POC Glucose 141 H (70-99) mg/dl Calcium 8.3 L (8.5-10.1) mg/dl Total Bilirubin 0.6 (0.2-1) mg/dl AST 37 (15-37) U/L ALT 17 (12-78) U/L Alkaline Phosphatase 88 (45-117) U/L Total Protein 5.7 L (6.4-8.2) gm/dl Albumin 2.5 L (3.4-5.0) gm/dl Globulin 3.2 (2.5-4.0) gm/dl Albumin/Globulin Ratio 0.8 L (0.9-2) 04/06/ Range/Units 17:34 WBC (4.8-10.8) K/uL RBC (4.2-5.4) M/uL Hgb (12.0-16.0) g/dL Hct (37-47) % MCV (80-100) fL MCH (25-34) pg MCHC (32-36) g/dL RDW Std Deviation (36.4-46.3) fL RDW Coeff of Reece (11.5-14.5) % Plt Count (130-400) K/uL MPV (7.4-10.4) fL Immature Gran % (Auto) % Neut % (Auto) % Lymph % (Auto) % Smith % (Auto) % Eos % (Auto) % Baso % (Auto) % Neut # (Auto) (1.4-6.5) K/uL Lymph # (Auto) (1.2-3.4) K/uL Smith # (Auto) (0.11-0.59) K/uL Eos # (Auto) (0-0.5) K/uL Baso # (Auto) (0-0.2) K/uL Immature Gran # (Auto) (0.00-0.02) K/uL Platelet Estimate (Normal) Sodium (136-145) mmol/L Potassium (3.5-5.1) mmol/L Chloride (98-107) mmol/L Carbon Dioxide (21-32) mmol/L Anion Gap (3-11) BUN (7-18) mg/dl Creatinine (0.6-1.2) mg/dl Est Cr Clr Drug Dosing ml/min Est GFR ( Amer) ml/min Est GFR (Non-Af Amer) ml/min BUN/Creatinine Ratio (10-20) Glucose (70-99) mg/dl POC Glucose 149 H (70-99) mg/dl Calcium (8.5-10.1) mg/dl Total Bilirubin (0.2-1) mg/dl AST (15-37) U/L ALT (12-78) U/L Alkaline Phosphatase (45-117) U/L Total Protein (6.4-8.2) gm/dl Albumin (3.4-5.0) gm/dl Globulin (2.5-4.0) gm/dl Albumin/Globulin Ratio (0.9-2) PG Care Time/CCT Total # of Minutes Spent Total Time Spent with Patient: Total time spent is greater than 50% in coordination of care (as documented) at patient's floor/unit and/or counseling patient: Coding Level of Care Code 27198 Subseq Hosp Care Lvl 2 Diagnoses Left humeral fracture S42.302A Encounter type: initial encounter Fracture alignment: displaced Fracture type: closed Humerus Location: proximal Acetabulum fracture, left S32.415A Encounter type: initial encounter Fracture alignment: nondisplaced Fracture type: closed Sublocation of acetabulum: anterior wall Pelvic fracture S32.9XXA Fall W19.XXXA Encounter type: initial encounter Thrombocytopenia D69.6 Asthma J45.909 Esophageal reflux K21.9 Hypertension I10 Hyperlipidemia E78.5 Hypothyroidism E03.9 Diabetes mellitus, type II E11.9 Hepatic cirrhosis K74.60 Vascular disease I99.9 DVT prophylaxis Z29.9 (1) Left humeral fracture Encounter type: initial encounter Fracture alignment: displaced Fracture type: closed Humerus Location: proximal (2) Acetabulum fracture, left Encounter type: initial encounter Fracture alignment: nondisplaced Fracture type: closed Sublocation of acetabulum: anterior wall Qualified Code(s): S32.415A - Nondisplaced fracture of anterior wall of left acetabulum, initial encounter for closed fracture (3) Fall Encounter type: initial encounter Qualified Code(s): W19.XXXA - Unspecified fall, initial encounter
[2021-04-07] MEDS: ATORVASTATIN 10 MG TAB PO SCH (20:20)
[2021-04-07] MEDS: PARoxetine HCL 20 MG TAB PO SCH (20:20)
[2021-04-08] MEDS: ACETAMINOPHEN 325 MG TAB PO SCH ×5 (00:09→23:10)
[2021-04-08] MEDS: LEVOTHYROXINE SODIUM 100 MCG TABLET PO SCH (05:47)
[2021-04-08] MEDS: ENOXAPARIN INJ 30 MG/0.3 ML SYR SQ SCH (07:28)
[2021-04-08] MEDS: MULTIVITAMIN TAB PO SCH (07:28)
[2021-04-08] MEDS: SENNA 8.6 MG TAB PO SCH (07:28)
[2021-04-08] MEDS: PANTOprazole 40 MG TAB PO SCH (07:28)
[2021-04-08] MEDS: FLUTICASONE/VILANTEROL 200/25MCG 14 PUFFS/INHALER INH SCH (07:28)
[2021-04-08] MEDS: INSULIN ASPART 100 UNITS/ML 3 ML PEN SC SCH ×4 (07:52→21:06)
[2021-04-08] MEDS: DOCUSATE SODIUM 100 MG CAP PO SCH ×2 (07:54→19:56)
[2021-04-08 09:14] LABS: Hematocrit (blood only) 30.5 % (37-47); Hemoglobin 9.9 g/dL (12.0-16.0); Mean Corpuscular Hemoglobin 30.6 pg (25-34); Mean Corpuscular Hgb Conc 32.5 g/dL (32-36); Mean Corpuscular Volume 94.1 fL (80-100); RDW Coefficient of Variation 13.5 % (11.5-14.5); RDW Standard Deviation 46.1 fL (36.4-46.3); Red Blood Count 3.24 M/uL (4.2-5.4); White Blood Count 4.17 K/uL (4.8-10.8)
[2021-04-08 09:18] LABS: Platelet Count 94 K/uL (130-400)
[2021-04-08 09:37] LABS: Calcium 8.5 mg/dl (8.5-10.1); Est GFR (African American) 112.4 ml/min; Potassium 4.1 mmol/L (3.5-5.1)
[2021-04-08 10:03] LABS: Basophils # (auto) 0.02 K/uL (0-0.2); Basophils % (auto) 0.5 %; Eosinophils # (auto) 0.11 K/uL (0-0.5); Eosinophils % (auto) 2.6 %; Immature Granulocytes # (auto) 0.03 K/uL (0.00-0.02); Immature Granulocytes % (auto) 0.7 %; Lymphocytes # (auto) 1.22 K/uL (1.2-3.4); Lymphocytes % (auto) 29.3 %; Monocytes % (auto) 9.6 %; Neutrophils # (auto) 2.39 K/uL (1.4-6.5); Neutrophils % (auto) 57.3 %
[2021-04-08] MEDS: HYDROmorphone HCL 2 MG TAB PO PRN ×2 (13:36→18:02)
--- NOTE | 2021-04-08 15:25 | Hospitalist Progress Note ---
Date of Service April 08, 2021 Assessment & Plan (1) Left humeral fracture: Plan: This is a 70-year-old female that lives alone. She had a mechanical fall resulting in fracture of left humerus, left acetabulum of hip, and left pubic bone. She came to the emergency room department via ambulance. Now s/p Left reverse total shoulder arthroplasty with Dr. Zamora on 04/04 she is Right hand dominant Doing well post-op with some expected pain but controlled with pain medication Hemovac drain removed on 04/06 Hgb down slightly but stable post-op pain control with p.o. dilaudid as is allergic to other opioids Continue with sling for immobilization, allowed to do passive pendulum like motion of the left shoulder only as per orthopedics continue bowel regimen with senna, docusate, MiraLAX as needed CBC with plts>50 and hgb stable, started Lovenox 30mg SQ once daily more for hip fracture/immobility and continue for 2 weeks--> follow CBC q3 days while on this given h/o thrombocytopenia and with pelvic fracture PT/OT recommend rehab-awaiting placement -have since discontinued her Valdivia catheter and is voiding on own, moving bowels It was noted that patient was in a thumb spica splint. In investigating this, patient was complaining of some left wrist pain. I have spoken to orthopedics who recommends repeating an x-ray. Initial x-ray was negative. If repeat negative, can remove thumb spica. (2) Acetabulum fracture, left: Plan: As above Pain control pain is improving allowed to weight bear as tolerated Seen by orthopedics and nonsurgical fracture. Appreciate recommendations (3) Pelvic fracture: Plan: As above, fracture of the left inferior pubic ramus that is nondisplaced secondary to fall Seen by orthopedics and nonsurgical fracture. Appreciate recommendations (4) Fall: Plan: This was a mechanical fall. There is no loss of consciousness. Patient had no dizziness or other contributing factors. Discussion with patient about returning home. She lives alone. Patient agrees to rehab facility on discharge PT/OT (5) Thrombocytopenia: Plan: secondary to cirrhosis and splenomegaly, chronic for years Platelets stable in 70-90s Imaging reviewed. Ruled out intraabdominal hemorrhage follow CBC again in the morning and then q3-5 days while on Lovenox ok to use Lovenox unless plts<50k (6) Asthma: Plan: Generally well controlled Patient has an HFA inhaler as well as nebulizer at home No adventitious sounds on auscultation Her medications include albuterol HFA rescue inhaler, fluticasone 500/salmeterol 50 (Advair) Oxygenating well. No bronchospasm. Most recent pulmonary function testing with spirometry only. This was done 04/27/2019. This reflected mild obstructive airway disease with no restrictive disease FVC 2.55 or 80% of predicted FEV1 1.87 or 76% of predicted FEV1/FVC 73% which is 95% of predicted DLCO is not available (7) Esophageal reflux: Plan: No evidence of epigastric discomfort Omeprazole at home Continue pantoprazole while inpatient (8) Hypertension: Plan: No chest pain or tightness initially losartan was held. This can be resumed now Hemodynamically stable EKG with a rate of 83 bpm QT interval 394 ms QTC 462 ms EKG interpretation by Dr. 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 Abnormal ECG When compared with ECG of 03-OCT-2006 07:45, Anteroseptal infarct is now Present Inferior infarct is now Present No known cardiac history and no angina (9) Hyperlipidemia: Plan: Continue atorvastatin 10 mg daily-consider increasing to high intensity given known mesenteric artery stenosis-defer to PCP (10) Hypothyroidism: Plan: Continue levothyroxine 100 mcg daily TSH normal in 10/2020 (11) Diabetes mellitus, type II: Plan: Diet controlled No medications or insulin use at home Hemoglobin A1c 5.5% NovoLog sliding scale insulin while inpatient (12) Hepatic cirrhosis: Plan: No history of alcohol abuse With thrombocytopenia Coagulation factors within normal limits INR 1.2 Outpatient management (13) Vascular disease: Plan: Mesenteric stenosis Continue statin should be on ASA but likely not given thrombocytopenia--> defer to PCP (14) DVT prophylaxis: Plan: on Lovenox 30mg SQ once daily x 2 weeks-we will need to follow CBC after discharge to ensure platelets do not go below 50 GUILLERMINA hansene/SCDs Dispo-medically stable for discharge, but awaiting rehab placement-case mgmt on board. needs approval and authorization Admission and Anticipated Discharge Date Admission Date: April 03, 2021 Subjective Patient seen on daily rounds today. She is a 70-year-old white female who was hospitalized on 04/04 following a fall. She tripped over a rolled up portion of carpet and sustained a comminuted humeral neck fracture with displaced greater tuberosity, acute comminuted nondisplaced fracture of the anterior wall of the left acetabulum, and an acute nondisplaced fracture of the inferior pubic ramus. Seen by orthopedics and underwent left reverse total shoulder arthroplasty on 04/04. Had an uneventful perioperative course. She is right-hand dominant. She lives alone. Therapy on board and recommending placement. Case management on boardawaiting approval and authorization. Otherwise, pain is adequately controlled. She is tolerating pain medication without ill effects. Review of Systems Review of Systems: All systems reviewed and are unremarkable except as noted in HPI and below Denies fevers, chills, headache, nasal congestion, sore throat, cough, chest pain, shortness of breath, palpitations, orthopnea, PND, abdominal pain, nausea, vomiting, diarrhea, constipation, dysuria, hematuria, frequency, back pain, joint pain or swelling, easy bruising or blooding, skin lesions or rashes. Physical Exam Physical Exam: General: Resting comfortably in her bedside chair. NAD. HEENT: Head is AT/NC buccal mucosa is moist and pink Neck: No JVD. Negative hepatojugular reflex Cardiac: RRR with 2/6 KATHERINE Lungs: CTA without W/R/R Abdomen: Normoactive X4. Soft and nontender in all quadrants. Extremities: Left upper extremity in a postsurgical sling. Capillary refill +2. Fine motor and dexterity intact. Neuro: A&O X4 cranial nerves II through XII are grossly intact no focal neuro deficits Skin: No obvious skin lesions or rashes Psych: Appropriate affect pleasant and cooperative Results & Data Results & Data ([facility]) Vital Signs (Past 12 Hours) Vital Signs Temp Pulse Resp BP Pulse Ox 04/08/21 15:10 36.8 C 76 16 131/66 92 04/08/21 07:03 37.0 C 70 18 158/72 H 94 Laboratory Results 04/08/21 07:48 04/08/21 07:48 PG Care Time/CCT Total # of Minutes Spent Total Time Spent with Patient: Total time spent is greater than 50% in coordination of care (as documented) at patient's floor/unit and/or counseling patient: C[place] [address] Subseq Hosp Care Lvl 2 Patient Type Established History Expanded Problem Focused Exam Expanded Problem Focused Medical Decision Making Moderate Complexity Diagnoses Left humeral fracture S42.302A Encounter type: initial encounter Fracture alignment: displaced Fracture type: closed Humerus Location: proximal Acetabulum fracture, left S32.415A Encounter type: initial encounter Fracture alignment: nondisplaced Fracture type: closed Sublocation of acetabulum: anterior wall Pelvic fracture S32.9XXA Fall W19.XXXA Encounter type: initial encounter Thrombocytopenia D69.6 Asthma J45.909 Esophageal reflux K21.9 Hypertension I10 Hyperlipidemia E78.5 Hypothyroidism E03.9 Diabetes mellitus, type II E11.9 Hepatic cirrhosis K74.60 Vascular disease I99.9 DVT prophylaxis Z29.9 (1) Left humeral fracture Encounter type: initial encounter Fracture alignment: displaced Fracture type: closed Humerus Location: proximal (2) Acetabulum fracture, left Encounter type: initial encounter Fracture alignment: nondisplaced Fracture type: closed Sublocation of acetabulum: anterior wall Qualified Code(s): S32.415A - Nondisplaced fracture of anterior wall of left acetabulum, initial encounter for closed fracture (3) Fall Encounter type: initial encounter Qualified Code(s): W19.XXXA - Unspecified fall, initial encounter
--- NOTE | 2021-04-08 15:55 | XRay Report ---
XR wrist LT min 3V routine CLINICAL HISTORY: r/o fracture COMPARISON: April 03, 2021 DISCUSSION: No definite acute fracture or dislocation seen. Cortical irregularity a of the fifth metacarpal bone might represent sequela from prior fracture. Overall evaluation is limited due to diffuse osteopenia. Degenerative changes of the radiocarpal joint are seen. Irregularity of the ulnar styloid could also represent degenerative process. Diffuse soft tissue edema is seen. IMPRESSION: No definite acute fracture or dislocation. Degenerative changes and osteopenia. ACT 112: Negative or not required by law. The above report was generated using voice recognition software. It may contain grammatical, syntax o r spelling errors. Electronically signed by: Ella Neff DO 04/08/2021 3:53 PM
[2021-04-08] MEDS: PARoxetine HCL 20 MG TAB PO SCH (19:56)
[2021-04-08] MEDS: ATORVASTATIN 10 MG TAB PO SCH (19:56)
[2021-04-08] MEDS: MoRPHine SULFATE 4 MG/ML 1 ML CARP\\VIAL IV PRN (23:09)
[2021-04-09] MEDS: HYDROmorphone HCL 2 MG TAB PO PRN ×3 (02:22→21:08)
[2021-04-09] MEDS: ACETAMINOPHEN 325 MG TAB PO SCH ×3 (06:05→17:56)
[2021-04-09] MEDS: LEVOTHYROXINE SODIUM 100 MCG TABLET PO SCH (06:06)
[2021-04-09 08:38] LABS: Est GFR (African American) 112.4 ml/min
[2021-04-09] MEDS: ENOXAPARIN INJ 30 MG/0.3 ML SYR SQ SCH (09:01)
[2021-04-09] MEDS: PANTOprazole 40 MG TAB PO SCH (09:01)
[2021-04-09] MEDS: LOSARTAN POTASSIUM 50 MG TAB PO SCH (09:01)
[2021-04-09] MEDS: FLUTICASONE/VILANTEROL 200/25MCG 14 PUFFS/INHALER INH SCH (09:01)
[2021-04-09] MEDS: MULTIVITAMIN TAB PO SCH (09:01)
[2021-04-09] MEDS: SENNA 8.6 MG TAB PO SCH (09:01)
[2021-04-09] MEDS: INSULIN ASPART 100 UNITS/ML 3 ML PEN SC SCH ×4 (09:06→21:05)
[2021-04-09] MEDS: DOCUSATE SODIUM 100 MG CAP PO SCH ×2 (09:06→21:08)
--- NOTE | 2021-04-09 15:00 | Hospitalist Progress Note ---
Date of Service April 09, 2021 Assessment & Plan (1) Left humeral fracture: Plan: This is a 70-year-old female that lives alone. She had a mechanical fall resulting in fracture of left humerus, left acetabulum of hip, and left pubic bone. She came to the emergency room department via ambulance. Now s/p Left reverse total shoulder arthroplasty with Dr. Zamora on 04/04 she is Right hand dominant Doing well post-op with some expected pain but controlled with pain medication and proper adjustment in sling Hemovac drain removed on 04/06 Hgb down slightly but stable (9.9 when last checked) post-op pain control with p.o. dilaudid as is allergic to other opioids Continue with sling for immobilization, allowed to do passive pendulum like motion of the left shoulder only as per orthopedics continue bowel regimen with senna, docusate, MiraLAX as needed CBC with plts>50 and hgb stable, started Lovenox 30mg SQ once daily more for hip fracture/immobility and continue for 2 weeks--> follow CBC q3 days while on this given h/o thrombocytopenia and with pelvic fracture PT/OT recommend rehab-awaiting placement -have since discontinued her Valdivia catheter and is voiding on own, moving bowels Thumb spica splint was noticed to be in place when seen yesterday. Did discuss this with orthopedics and it was due to some pain. Ortho recommended a follow- up x-ray that has since been completed and is showing no acute fracture. Okay to remove thumb spica as outlined by orthopedics. repeat xray of the left wrist: IMPRESSION: No definite acute fracture or dislocation. Degenerative changes and osteopenia. (2) Acetabulum fracture, left: Plan: As above Pain control pain is improving allowed to weight bear as tolerated Seen by orthopedics and nonsurgical fracture. Appreciate recommendations (3) Pelvic fracture: Plan: As above, fracture of the left inferior pubic ramus that is nondisplaced secondary to fall Seen by orthopedics and nonsurgical fracture. Appreciate recommendations (4) Fall: Plan: This was a mechanical fall. There is no loss of consciousness. Patient had no dizziness or other contributing factors. Discussion with patient about returning home. She lives alone. Patient agrees to rehab facility on discharge PT/OT (5) Thrombocytopenia: Plan: secondary to cirrhosis and splenomegaly, chronic for years Platelets stable in 70-90s Imaging reviewed. Ruled out intraabdominal hemorrhage follow CBC tomorrow and every 3-5 days while on lovenox (which is recommended for 14 days-- 04/18/21 would complete last dose) ok to use Lovenox unless plts<50k (6) Asthma: Plan: Generally well controlled Patient has an HFA inhaler as well as nebulizer at home No adventitious sounds on auscultation Her medications include albuterol HFA rescue inhaler, fluticasone 500/salmeterol 50 (Advair) Oxygenating well. No bronchospasm. Most recent pulmonary function testing with spirometry only. This was done 04/27/2019. This reflected mild obstructive airway disease with no restrictive disease FVC 2.55 or 80% of predicted FEV1 1.87 or 76% of predicted FEV1/FVC 73% which is 95% of predicted DLCO is not available (7) Esophageal reflux: Plan: No evidence of epigastric discomfort Omeprazole at home Continue pantoprazole while inpatient (8) Hypertension: Plan: No chest pain or tightness initially losartan was held. This can be resumed now Hemodynamically stable EKG with a rate of 83 bpm QT interval 394 ms QTC 462 ms EKG interpretation by Dr[address] 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 Abnormal ECG When compared with ECG of 03-OCT-2006 07:45, Anteroseptal infarct is now Present Inferior infarct is now Present No known cardiac history and no angina (9) Hyperlipidemia: Plan: Continue atorvastatin 10 mg daily-consider increasing to high intensity given known mesenteric artery stenosis-defer to PCP (10) Hypothyroidism: Plan: Continue levothyroxine 100 mcg daily TSH normal in 10/2020 (11) Diabetes mellitus, type II: Plan: Diet controlled No medications or insulin use at home Hemoglobin A1c 5.5% NovoLog sliding scale insulin while inpatient (12) Hepatic cirrhosis: Plan: No history of alcohol abuse With thrombocytopenia Coagulation factors within normal limits INR 1.2 Outpatient management (13) Vascular disease: Plan: Mesenteric stenosis Continue statin should be on ASA but likely not given thrombocytopenia--> defer to PCP (14) DVT prophylaxis: Plan: on Lovenox 30mg SQ once daily x 2 weeks-we will need to follow CBC after discharge to ensure platelets do not go below 50 GUILLERMINA hose/SCDs Dispo-medically stable for discharge, but awaiting rehab placement-case mgmt on board. needs approval and authorization Admission and Anticipated Discharge Date Admission Date: April 03, 2021 Subjective Patient seen on daily rounds today. Overall, pain is adequately controlled. Tolerating her pain medication. Reports that she did have some increased pain overnight but noticed it was improved with readjustment in her sling. She denies fevers, chills, chest pain, shortness of breath, GI/ symptomatology. Moving her bowel and bladder without difficulty. Still awaiting placement. Review of Systems Review of Systems: All systems reviewed and are unremarkable except as noted in HPI and below Denies fevers, chills, headache, nasal congestion, sore throat, cough, chest pain, shortness of breath, palpitations, orthopnea, PND, abdominal pain, nausea, vomiting, diarrhea, constipation, dysuria, hematuria, frequency, back pain, joint pain or swelling, easy bruising or blooding, skin lesions or rashes. Physical Exam Physical Exam: General: Resting comfortably in her bedside chair. NAD. HEENT: Head is AT/NC buccal mucosa is moist and pink Neck: No JVD. Negative hepatojugular reflex Cardiac: RRR with 2/6 KATHERINE Lungs: CTA without W/R/R Abdomen: Normoactive X4. Soft and nontender in all quadrants. Extremities: Left upper extremity in a postsurgical sling. Thumb spica splint to left wrist. Capillary refill +2. Fine motor and dexterity intact. Neuro: A&O X4 cranial nerves II through XII are grossly intact no focal neuro deficits Skin: No obvious skin lesions or rashes Psych: Appropriate affect pleasant and cooperative Results & Data Results & Data ([facility]) Vital Signs (Past 12 Hours) Vital Signs Temp Pulse Resp BP Pulse Ox 04/09/21 06:51 36.6 C 61 16 135/63 94 Laboratory Results 04/08/21 07:48 04/09/21 07:47 PG Care Time/CCT Total # of Minutes Spent Total Time Spent with Patient: Total time spent is greater than 50% in coordination of care (as documented) at patient's floor/unit and/or counseling patient: Coding [place] [address] Subseq Hosp Care Lvl 2 Patient Type Established History Expanded Problem Focused Exam Expanded Problem Focused Medical Decision Making Low Complexity Diagnoses Left humeral fracture S42.302A Encounter type: initial encounter Fracture alignment: displaced Fracture type: closed Humerus Location: proximal Acetabulum fracture, left S32.415A Encounter type: initial encounter Fracture alignment: nondisplaced Fracture type: closed Sublocation of acetabulum: anterior wall Pelvic fracture S32.9XXA Fall W19.XXXA Encounter type: initial encounter Thrombocytopenia D69.6 Asthma J45.909 Esophageal reflux K21.9 Hypertension I10 Hyperlipidemia E78.5 Hypothyroidism E03.9 Diabetes mellitus, type II E11.9 Hepatic cirrhosis K74.60 Vascular disease I99.9 DVT prophylaxis Z29.9 (1) Left humeral fracture Encounter type: initial encounter Fracture alignment: displaced Fracture type: closed Humerus Location: proximal (2) Acetabulum fracture, left Encounter type: initial encounter Fracture alignment: nondisplaced Fracture type: closed Sublocation of acetabulum: anterior wall Qualified Code(s): S32.415A - Nondisplaced fracture of anterior wall of left acetabulum, initial encounter for closed fracture (3) Fall Encounter type: initial encounter Qualified Code(s): W19.XXXA - Unspecified fall, initial encounter
[2021-04-09] MEDS: ATORVASTATIN 10 MG TAB PO SCH (21:04)
[2021-04-09] MEDS: PARoxetine HCL 20 MG TAB PO SCH (21:05)
[2021-04-10] MEDS: ACETAMINOPHEN 325 MG TAB PO SCH ×5 (00:07→23:24)
[2021-04-10] MEDS: MoRPHine SULFATE 4 MG/ML 1 ML CARP\\VIAL IV PRN ×2 (00:10→21:53)
[2021-04-10] MEDS: HYDROmorphone HCL 2 MG TAB PO PRN ×2 (04:53→17:55)
[2021-04-10] MEDS: LEVOTHYROXINE SODIUM 100 MCG TABLET PO SCH (05:33)
[2021-04-10 08:05] LABS: Hematocrit (blood only) 29.1 % (37-47); Hemoglobin 9.8 g/dL (12.0-16.0); Mean Corpuscular Hemoglobin 30.6 pg (25-34); Mean Corpuscular Hgb Conc 33.7 g/dL (32-36); Mean Corpuscular Volume 90.9 fL (80-100); Mean Platelet Volume 9.1 fL (7.4-10.4); Platelet Count 116 K/uL (130-400); RDW Coefficient of Variation 13.8 % (11.5-14.5); RDW Standard Deviation 45.1 fL (36.4-46.3); White Blood Count 3.52 K/uL (4.8-10.8)
[2021-04-10] MEDS: SENNA 8.6 MG TAB PO SCH (09:00)
[2021-04-10] MEDS: MULTIVITAMIN TAB PO SCH (09:00)
[2021-04-10] MEDS: FLUTICASONE/VILANTEROL 200/25MCG 14 PUFFS/INHALER INH SCH (09:01)
[2021-04-10] MEDS: LOSARTAN POTASSIUM 50 MG TAB PO SCH (09:01)
[2021-04-10] MEDS: ENOXAPARIN INJ 30 MG/0.3 ML SYR SQ SCH (09:01)
[2021-04-10] MEDS: PANTOprazole 40 MG TAB PO SCH (09:01)
[2021-04-10] MEDS: DOCUSATE SODIUM 100 MG CAP PO SCH ×2 (09:03→20:04)
[2021-04-10] MEDS: INSULIN ASPART 100 UNITS/ML 3 ML PEN SC SCH ×4 (09:23→21:48)
--- NOTE | 2021-04-10 18:08 | Hospitalist Progress Note ---
Date of Service April 10, 2021 Assessment & Plan (1) Left humeral fracture: Plan: This is a 70-year-old female that lives alone. She had a mechanical fall resulting in fracture of left humerus, left acetabulum of hip, and left pubic bone. She came to the emergency room department via ambulance. Now s/p Left reverse total shoulder arthroplasty with Dr. Zamora on 04/04 she is Right hand dominant Doing well post-op with some expected pain but controlled with pain medication and proper adjustment in sling Hemovac drain removed on 04/06 Hgb down slightly but stable (9.9 when last checked) post-op pain control with p.o. dilaudid as is allergic to other opioids Continue with sling for immobilization, allowed to do passive pendulum like motion of the left shoulder only as per orthopedics continue bowel regimen with senna, docusate, MiraLAX as needed CBC with plts>50 and hgb stable, started Lovenox 30mg SQ once daily more for hip fracture/immobility and continue for 2 weeks--> follow CBC q3 days while on this given h/o thrombocytopenia and with pelvic fracture PT/OT recommend rehab-awaiting placement -have since discontinued her Valdivia catheter and is voiding on own, moving bowels Thumb spica splint initially noted. Did discuss this with orthopedics and it was due to some pain. Follow-up wrist x-ray done as recommended by Ortho showing no fracture. Thumb spica splint removed. repeat xray of the left wrist: IMPRESSION: No definite acute fracture or dislocation. Degenerative changes and osteopenia. (2) Acetabulum fracture, left: Plan: As above Pain control pain is improving allowed to weight bear as tolerated Seen by orthopedics and nonsurgical fracture. Appreciate recommendations (3) Pelvic fracture: Plan: As above, fracture of the left inferior pubic ramus that is nondisplaced secondary to fall Seen by orthopedics and nonsurgical fracture. Appreciate recommendations (4) Fall: Plan: This was a mechanical fall. There is no loss of consciousness. Patient had no dizziness or other contributing factors. Discussion with patient about returning home. She lives alone. Patient agrees to rehab facility on discharge PT/OT (5) Thrombocytopenia: Plan: secondary to cirrhosis and splenomegaly, chronic for years Platelets stable Imaging reviewed. Ruled out intraabdominal hemorrhage follow CBC tomorrow and every 3-5 days while on lovenox (which is recommended for 14 days-- 04/18/21 would complete last dose) ok to use Lovenox unless plts<50k (6) Asthma: Plan: Generally well controlled Patient has an HFA inhaler as well as nebulizer at home No adventitious sounds on auscultation Her medications include albuterol HFA rescue inhaler, fluticasone 500/salmeterol 50 (Advair) Oxygenating well. No bronchospasm. Most recent pulmonary function testing with spirometry only. This was done 04/27/2019. This reflected mild obstructive airway disease with no restrictive disease FVC 2.55 or 80% of predicted FEV1 1.87 or 76% of predicted FEV1/FVC 73% which is 95% of predicted DLCO is not available (7) Esophageal reflux: Plan: No evidence of epigastric discomfort Omeprazole at home Continue pantoprazole while inpatient (8) Hypertension: Plan: No chest pain or tightness initially losartan was held. This can be resumed now Hemodynamically stable EKG with a rate of 83 bpm QT interval 394 ms QTC 462 ms EKG interpretation by Dr. 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 Abnormal ECG When compared with ECG of 03-OCT-2006 07:45, Anteroseptal infarct is now Present Inferior infarct is now Present No known cardiac history and no angina (9) Hyperlipidemia: Plan: Continue atorvastatin 10 mg daily-consider increasing to high intensity given known mesenteric artery stenosis-defer to PCP (10) Hypothyroidism: Plan: Continue levothyroxine 100 mcg daily TSH normal in 10/2020 (11) Diabetes mellitus, type II: Plan: Diet controlled No medications or insulin use at home Hemoglobin A1c 5.5% NovoLog sliding scale insulin while inpatient (12) Hepatic cirrhosis: Plan: No history of alcohol abuse With thrombocytopenia Coagulation factors within normal limits INR 1.2 Outpatient management (13) Vascular disease: Plan: Mesenteric stenosis Continue statin should be on ASA but likely not given thrombocytopenia--> defer to PCP (14) DVT prophylaxis: Plan: on Lovenox 30mg SQ once daily x 2 weeks-we will need to follow CBC after discharge to ensure platelets do not go below 50 GUILLERMINA hose/SCDs Dispo-medically stable for discharge, but awaiting rehab placement-case mgmt on board. needs approval and authorization Admission and Anticipated Discharge Date Admission Date: April 03, 2021 Subjective Patient seen on daily rounds today. Vocalizes no complaints or concerns. Continues to do well with therapy but not quite ready to go home. Case management on board trying to get her placed. Unfortunately, beds are limited/unavailable Moving bowel and bladder without difficulty. Tolerating pain medication without ill effects. Review of Systems Review of Systems: All systems reviewed and are unremarkable except as noted in HPI and below Denies fevers, chills, headache, nasal congestion, sore throat, cough, chest pain, shortness of breath, palpitations, orthopnea, PND, abdominal pain, nausea, vomiting, diarrhea, constipation, dysuria, hematuria, frequency, back pain, joint pain or swelling, easy bruising or blooding, skin lesions or rashes. Physical Exam Physical Exam: General: Resting comfortably in her bedside chair. NAD. HEENT: Head is AT/NC buccal mucosa is moist and pink Neck: No JVD. Negative hepatojugular reflex Cardiac: RRR 2/6 KATHERINE Lungs: CTA without W/R/R Abdomen: Normoactive X4. Soft and nontender in all quadrants. Extremities: Left upper extremity in post surgical sling. Cap RF and radial pulse intact. fine motor/dexterity intact Neuro: A&O X4 cranial nerves II through XII are grossly intact no focal neuro deficits Skin: No obvious skin lesions or rashes Psych: Appropriate affect pleasant and cooperative Results & Data Results & Data ([facility]) Vital Signs (Past 12 Hours) Vital Signs Temp Pulse Resp BP Pulse Ox 04/10/21 15:41 37.3 C 66 16 127/61 99 04/10/21 07:35 36.8 C 66 16 149/60 H 95 PG Care Time/CCT Total # of Minutes Spent Total Time Spent with Patient: Total time spent is greater than 50% in coordination of care (as documented) at patient's floor/unit and/or counseling patient: Coding [place] [address] Subseq Hosp Care Lvl 1 Patient Type Established History Problem Focused Exam Problem Focused Medical Decision Making Straight Forward Diagnoses Left humeral fracture S42.302A Encounter type: initial encounter Fracture alignment: displaced Fracture type: closed Humerus Location: proximal Acetabulum fracture, left S32.415A Encounter type: initial encounter Fracture alignment: nondisplaced Fracture type: closed Sublocation of acetabulum: anterior wall Pelvic fracture S32.9XXA Fall W19.XXXA Encounter type: initial encounter Thrombocytopenia D69.6 Asthma J45.909 Esophageal reflux K21.9 Hypertension I10 Hyperlipidemia E78.5 Hypothyroidism E03.9 Diabetes mellitus, type II E11.9 Hepatic cirrhosis K74.60 Vascular disease I99.9 DVT prophylaxis Z29.9 (1) Left humeral fracture Encounter type: initial encounter Fracture alignment: displaced Fracture type: closed Humerus Location: proximal (2) Acetabulum fracture, left Encounter type: initial encounter Fracture alignment: nondisplaced Fracture type: closed Sublocation of acetabulum: anterior wall Qualified Code(s): S32.415A - Nondisplaced fracture of anterior wall of left acetabulum, initial encounter for closed fracture (3) Fall Encounter type: initial encounter Qualified Code(s): W19.XXXA - Unspecified fall, initial encounter
[2021-04-10] MEDS: ATORVASTATIN 10 MG TAB PO SCH (20:04)
[2021-04-10] MEDS: PARoxetine HCL 20 MG TAB PO SCH (20:04)
[2021-04-11] MEDS: MoRPHine SULFATE 4 MG/ML 1 ML CARP\\VIAL IV PRN ×2 (02:30→22:39)
[2021-04-11] MEDS: ACETAMINOPHEN 325 MG TAB PO SCH ×3 (06:03→17:36)
[2021-04-11] MEDS: LEVOTHYROXINE SODIUM 100 MCG TABLET PO SCH (06:06)
[2021-04-11] MEDS: LOSARTAN POTASSIUM 50 MG TAB PO SCH (09:11)
[2021-04-11] MEDS: MULTIVITAMIN TAB PO SCH (09:11)
[2021-04-11] MEDS: PANTOprazole 40 MG TAB PO SCH (09:11)
[2021-04-11] MEDS: ENOXAPARIN INJ 30 MG/0.3 ML SYR SQ SCH (09:12)
[2021-04-11] MEDS: SENNA 8.6 MG TAB PO SCH (09:12)
[2021-04-11] MEDS: FLUTICASONE/VILANTEROL 200/25MCG 14 PUFFS/INHALER INH SCH (09:12)
[2021-04-11] MEDS: INSULIN ASPART 100 UNITS/ML 3 ML PEN SC SCH ×4 (09:13→20:31)
[2021-04-11] MEDS: DOCUSATE SODIUM 100 MG CAP PO SCH ×2 (09:13→20:33)
--- NOTE | 2021-04-11 15:24 | Hospitalist Progress Note ---
Date of Service April 11, 2021 Assessment & Plan (1) Left humeral fracture: Plan: This is a 70-year-old female that lives alone. She had a mechanical fall resulting in fracture of left humerus, left acetabulum of hip, and left pubic bone. She came to the emergency room department via ambulance. Now s/p Left reverse total shoulder arthroplasty with Dr. Zamora on 04/04 she is Right hand dominant Doing well post-op with some expected pain but controlled with pain medication and proper adjustment in sling Hemovac drain removed on 04/06 Hgb down slightly but stable (9.9 when last checked) post-op pain control with p.o. dilaudid as is allergic to other opioids Continue with sling for immobilization, allowed to do passive pendulum like motion of the left shoulder only as per orthopedics continue bowel regimen with senna, docusate, MiraLAX as needed CBC with plts>50 and hgb stable, started Lovenox 30mg SQ once daily more for hip fracture/immobility and continue for 2 weeks--> follow CBC q3 days while on this given h/o thrombocytopenia and with pelvic fracture PT/OT recommend rehab-awaiting placement -have since discontinued her Valdivia catheter and is voiding on own, moving bowels Thumb spica splint initially noted. Did discuss this with orthopedics and it was due to some pain. Follow-up wrist x-ray done as recommended by Ortho showing no fracture. Thumb spica splint removed. repeat xray of the left wrist: IMPRESSION: No definite acute fracture or dislocation. Degenerative changes and osteopenia. We will need to follow-up with Ortho in 10 to 14 days from procedure (04/14 through 04/16). If patient remains in house, will reach out to orthopedics (2) Acetabulum fracture, left: Plan: As above Pain control pain is improving allowed to weight bear as tolerated Seen by orthopedics and nonsurgical fracture. Appreciate recommendations (3) Pelvic fracture: Plan: As above, fracture of the left inferior pubic ramus that is nondisplaced secondary to fall Seen by orthopedics and nonsurgical fracture. Appreciate recommendations (4) Fall: Plan: This was a mechanical fall. There is no loss of consciousness. Patient had no dizziness or other contributing factors. Discussion with patient about returning home. She lives alone. Patient agrees to rehab facility on discharge PT/OT (5) Thrombocytopenia: Plan: secondary to cirrhosis and splenomegaly, chronic for years Platelets stable Imaging reviewed. Ruled out intraabdominal hemorrhage follow CBC tomorrow and every 3-5 days while on lovenox (which is recommended for 14 days-- 04/18/21 would complete last dose) ok to use Lovenox unless plts<50k (6) Asthma: Plan: Generally well controlled Patient has an HFA inhaler as well as nebulizer at home No adventitious sounds on auscultation Her medications include albuterol HFA rescue inhaler, fluticasone 500/salmeterol 50 (Advair) Oxygenating well. No bronchospasm. Most recent pulmonary function testing with spirometry only. This was done 04/27/2019. This reflected mild obstructive airway disease with no restrictive disease FVC 2.55 or 80% of predicted FEV1 1.87 or 76% of predicted FEV1/FVC 73% which is 95% of predicted DLCO is not available (7) Esophageal reflux: Plan: No evidence of epigastric discomfort Omeprazole at home Continue pantoprazole while inpatient (8) Hypertension: Plan: No chest pain or tightness initially losartan was held. This can be resumed now Hemodynamically stable EKG with a rate of 83 bpm QT interval 394 ms QTC 462 ms [address] interpretation by [address] 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 Abnormal ECG When compared with ECG of 03-OCT-2006 07:45, Anteroseptal infarct is now Present Inferior infarct is now Present No known cardiac history and no angina (9) Hyperlipidemia: Plan: Continue atorvastatin 10 mg daily-consider increasing to high intensity given known mesenteric artery stenosis-defer to PCP (10) Hypothyroidism: Plan: Continue levothyroxine 100 mcg daily TSH normal in 10/2020 (11) Diabetes mellitus, type II: Plan: Diet controlled No medications or insulin use at home Hemoglobin A1c 5.5% NovoLog sliding scale insulin while inpatient (12) Hepatic cirrhosis: Plan: No history of alcohol abuse With thrombocytopenia Coagulation factors within normal limits INR 1.2 Outpatient management (13) Vascular disease: Plan: Mesenteric stenosis Continue statin should be on ASA but likely not given thrombocytopenia--> defer to PCP (14) DVT prophylaxis: Plan: on Lovenox 30mg SQ once daily x 2 weeks-we will need to follow CBC after discharge to ensure platelets do not go below 50 GUILLERMINA hose/SCDs Dispo-medically stable for discharge, but awaiting rehab placement-case mgmt on board. needs approval and authorization (? Thursday) Admission and Anticipated Discharge Date Admission Date: April 03, 2021 Subjective Patient seen on daily rounds today. Vocalizes no significant complaints or concerns. Pain adequately controlled. Tolerating pain medication without ill effects. Moving Bowel and Bladder. Continues to improve slowly with daily therapy Still awaiting placement. Case management on board. Told soonest available bed would be Thursday of next week. Review of Systems Review of Systems: All systems reviewed and are unremarkable except as noted in HPI and below Denies fevers, chills, headache, nasal congestion, sore throat, cough, chest pain, shortness of breath, palpitations, orthopnea, PND, abdominal pain, nausea, vomiting, diarrhea, constipation, dysuria, hematuria, frequency, back pain, joint pain or swelling, easy bruising or blooding, skin lesions or rashes. Physical Exam Physical Exam: General: Resting comfortably in her hospital bed/bedside chair. NAD. HEENT: Head is AT/NC buccal mucosa is moist and pink Neck: No JVD. Negative hepatojugular reflex Cardiac: RRR with 2/6 KATHERINE Lungs: CTA without W/R/R Abdomen: Normoactive X4. Soft and nontender in all quadrants. Extremities: Left upper extremity remains in a postsurgical sling. Radial pulse intact and symmetrical bilaterally. Capillary refill +2. Fine motor and dexterity intact. Neuro: A&O X4 cranial nerves II through XII are grossly intact no focal neuro deficits Skin: No obvious skin lesions or rashes Psych: Appropriate affect pleasant and cooperative Results & Data Results & Data ([facility]) Vital Signs (Past 12 Hours) Vital Signs Temp Pulse Resp BP Pulse Ox 04/11/21 08:07 36.8 C 63 18 164/70 H 96 PG Care Time/CCT Total # of Minutes Spent Total Time Spent with Patient: Total time spent is greater than 50% in coordination of care (as documented) at patient's floor/unit and/or counseling patient: Coding [place] [address] Subseq Hosp Care Lvl 1 Patient Type Established History Problem Focused Exam Problem Focused Medical Decision Making Straight Forward Diagnoses Left humeral fracture S42.302A Encounter type: initial encounter Fracture alignment: displaced Fracture type: closed Humerus Location: proximal Acetabulum fracture, left S32.415A Encounter type: initial encounter Fracture alignment: nondisplaced Fracture type: closed Sublocation of acetabulum: anterior wall Pelvic fracture S32.9XXA Fall W19.XXXA Encounter type: initial encounter Thrombocytopenia D69.6 Asthma J45.909 Esophageal reflux K21.9 Hypertension I10 Hyperlipidemia E78.5 Hypothyroidism E03.9 Diabetes mellitus, type II E11.9 Hepatic cirrhosis K74.60 Vascular disease I99.9 DVT prophylaxis Z29.9 (1) Left humeral fracture Encounter type: initial encounter Fracture alignment: displaced Fracture type: closed Humerus Location: proximal (2) Acetabulum fracture, left Encounter type: initial encounter Fracture alignment: nondisplaced Fracture type: closed Sublocation of acetabulum: anterior wall Qualified Code(s): S32.415A - Nondisplaced fracture of anterior wall of left acetabulum, initial encounter for closed fracture (3) Fall Encounter type: initial encounter Qualified Code(s): W19.XXXA - Unspecified fall, initial encounter
[2021-04-11] MEDS: ATORVASTATIN 10 MG TAB PO SCH (20:29)
[2021-04-11] MEDS: PARoxetine HCL 20 MG TAB PO SCH (20:30)
[2021-04-12] MEDS: ACETAMINOPHEN 325 MG TAB PO SCH ×5 (00:05→23:11)
[2021-04-12] MEDS: LEVOTHYROXINE SODIUM 100 MCG TABLET PO SCH (05:47)
[2021-04-12 07:38] LABS: Creatinine Clr Calc Pharmacy 94.3 ml/min; Est GFR (African American) 109.2 ml/min; Est GFR (Non-African American) 94.2 ml/min
[2021-04-12] MEDS: HYDROmorphone HCL 2 MG TAB PO PRN ×2 (08:56→20:24)
[2021-04-12] MEDS: LOSARTAN POTASSIUM 50 MG TAB PO SCH (08:57)
[2021-04-12] MEDS: MULTIVITAMIN TAB PO SCH (08:57)
[2021-04-12] MEDS: PANTOprazole 40 MG TAB PO SCH (08:57)
[2021-04-12] MEDS: SENNA 8.6 MG TAB PO SCH (08:57)
[2021-04-12] MEDS: ENOXAPARIN INJ 30 MG/0.3 ML SYR SQ SCH (08:57)
[2021-04-12] MEDS: FLUTICASONE/VILANTEROL 200/25MCG 14 PUFFS/INHALER INH SCH (08:58)
[2021-04-12] MEDS: DOCUSATE SODIUM 100 MG CAP PO SCH ×2 (09:00→20:24)
[2021-04-12] MEDS: INSULIN ASPART 100 UNITS/ML 3 ML PEN SC SCH ×4 (09:00→21:09)
[2021-04-12 13:56] LABS: Appearance Urine Clear (Clear); Bacteria Urine Automated Negative (Negative); Bilirubin Urine Negative (Negative); Blood Urine Negative (Negative); Color Urine Dark Yellow; Epithelial Cell Urine Auto 20-30 /lpf (0-5); Glucose Urine UA Negative (Negative); Ketones Urine Negative (Negative); Leukocyte Esterase Urine Trace (Negative); Nitrite Urine Negative (Negative); Protein Urine Negative (Negative); RBC Urine Automated 0-4 /hpf (0-4); Specific Gravity Urine 1.011 (1.000-1.030); Urobilinogen Urine Negative (Negative)
--- NOTE | 2021-04-12 15:40 | Hospitalist Progress Note ---
Date of Service April 12, 2021 Assessment & Plan (1) Left humeral fracture: Plan: This is a 70-year-old female that lives alone. She had a mechanical fall resulting in fracture of left humerus, left acetabulum of hip, and left pubic bone. She came to the emergency room department via ambulance. Now s/p Left reverse total shoulder arthroplasty with Dr. Zamora on 04/04 she is Right hand dominant Doing well post-op with some expected pain but controlled with pain medication and proper adjustment in sling Hemovac drain removed on 04/06 Hgb down slightly but stable (9.9 when last checked) post-op pain control with p.o. dilaudid as is allergic to other opioids Continue with sling for immobilization, allowed to do passive pendulum like motion of the left shoulder only as per orthopedics continue bowel regimen with senna, docusate, MiraLAX as needed CBC with plts>50 and hgb stable, started Lovenox 30mg SQ once daily more for hip fracture/immobility and continue for 2 weeks--> follow CBC q3 days while on this given h/o thrombocytopenia and with pelvic fracture PT/OT recommend rehab-awaiting placement -have since discontinued her Valdivia catheter and is voiding on own, moving bowels Thumb spica splint initially noted. Did discuss this with orthopedics and it was due to some pain. Follow-up wrist x-ray done as recommended by Ortho showing no fracture. Thumb spica splint removed. repeat xray of the left wrist: IMPRESSION: No definite acute fracture or dislocation. Degenerative changes and osteopenia. We will need to follow-up with Ortho in 10 to 14 days from procedure (04/14 through 04/16). If patient remains in house, will reach out to orthopedics (2) Acetabulum fracture, left: Plan: As above Pain control pain is improving allowed to weight bear as tolerated Seen by orthopedics and nonsurgical fracture. Appreciate recommendations (3) Pelvic fracture: Plan: As above, fracture of the left inferior pubic ramus that is nondisplaced secondary to fall Seen by orthopedics and nonsurgical fracture. Appreciate recommendations (4) Fall: Plan: This was a mechanical fall. There is no loss of consciousness. Patient had no dizziness or other contributing factors. Discussion with patient about returning home. She lives alone. Patient agrees to rehab facility on discharge PT/OT (5) Thrombocytopenia: Plan: secondary to cirrhosis and splenomegaly, chronic for years Platelets stable Imaging reviewed. Ruled out intraabdominal hemorrhage follow CBC tomorrow and every 3-5 days while on lovenox (which is recommended for 14 days-- 04/18/21 would complete last dose) ok to use Lovenox unless plts<50k (6) Asthma: Plan: Generally well controlled Patient has an HFA inhaler as well as nebulizer at home No adventitious sounds on auscultation Her medications include albuterol HFA rescue inhaler, fluticasone 500/salmeterol 50 (Advair) Oxygenating well. No bronchospasm. Most recent pulmonary function testing with spirometry only. This was done 04/27/2019. This reflected mild obstructive airway disease with no restrictive disease FVC 2.55 or 80% of predicted FEV1 1.87 or 76% of predicted FEV1/FVC 73% which is 95% of predicted DLCO is not available (7) Esophageal reflux: Plan: No evidence of epigastric discomfort Omeprazole at home Continue pantoprazole while inpatient (8) Hypertension: Plan: No chest pain or tightness initially losartan was held. This can be resumed now Hemodynamically stable EKG with a rate of 83 bpm QT interval 394 ms QTC [address] interpretation by [address] 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 Abnormal ECG When compared with ECG of 03-OCT-2006 07:45, Anteroseptal infarct is now Present Inferior infarct is now Present No known cardiac history and no angina (9) Hyperlipidemia: Plan: Continue atorvastatin 10 mg daily-consider increasing to high intensity given known mesenteric artery stenosis-defer to PCP (10) Hypothyroidism: Plan: Continue levothyroxine 100 mcg daily TSH normal in 10/2020 (11) Diabetes mellitus, type II: Plan: Diet controlled No medications or insulin use at home Hemoglobin A1c 5.5% NovoLog sliding scale insulin while inpatient (12) Hepatic cirrhosis: Plan: No history of alcohol abuse With thrombocytopenia Coagulation factors within normal limits INR 1.2 Outpatient management (13) Vascular disease: Plan: Mesenteric stenosis Continue statin should be on ASA but likely not given thrombocytopenia--> defer to PCP (14) DVT prophylaxis: Plan: on Lovenox 30mg SQ once daily x 2 weeks-we will need to follow CBC after discharge to ensure platelets do not go below 50 GUILLERMINA hose/SCDs Dispo-medically stable for discharge, but awaiting rehab placement-case mgmt on board. needs approval and authorization (? Thursday) Admission and Anticipated Discharge Date Admission Date: April 03, 2021 Subjective Patient seen on daily rounds today. Vocalizes no significant complaints or concerns. Denies fevers, chills, chest pain, shortness of breath, abdominal pain, nausea or vomiting. Nursing voices no complaints or concerns. Continues to improve slowly with therapy but not quite ready for discharge to home. Still awaiting placement. No beds available at this time. Case manageme nt on board and diligently working Review of Systems Review of Systems: All systems reviewed and are unremarkable except as noted in HPI and below Denies fevers, chills, headache, nasal congestion, sore throat, cough, chest pain, shortness of breath, palpitations, orthopnea, PND, abdominal pain, nausea, vomiting, diarrhea, constipation, dysuria, hematuria, frequency, back pain, joint pain or swelling, easy bruising or bleeding, skin lesions or rashes. Physical Exam Physical Exam: General: Resting comfortably in her hospital bed/bedside chair. NAD. HEENT: Head is AT/NC buccal mucosa is moist and pink Neck: No JVD. Negative hepatojugular reflex Cardiac: RRR with 2/6 KATHERINE Lungs: CTA without W/R/R Abdomen: Normoactive X4. Soft and nontender in all quadrants. Extremities: Left upper extremity remains in a postsurgical sling. Radial pulse intact and symmetrical bilaterally. Capillary refill +2. Fine motor and dexterity intact. Neuro: A&O X4 cranial nerves II through XII are grossly intact no focal neuro deficits Skin: No obvious skin lesions or rashes Psych: Appropriate affect pleasant and cooperative Results & Data Results & Data ([facility]) Vital Signs (Past 12 Hours) Vital Signs Temp Pulse Resp BP Pulse Ox 04/12/21 14:44 36.9 C 63 16 108/58 L 96 04/12/21 06:59 36.5 C 59 L 16 150/70 H 96 Laboratory Results No lab data today PG Care Time/CCT Total # of Minutes Spent Total Time Spent with Patient: Total time spent is greater than 50% in coordination of care (as documented) at patient's floor/unit and/or counseling patient: Coding [place] [address] Subseq Hosp Care Lv 1 Patient Type Established History Problem Focused Exam Problem Focused Medical Decision Making Straight Forward Diagnoses Left humeral fracture S42.302A Encounter type: initial encounter Fracture alignment: displaced Fracture type: closed Humerus Location: proximal Acetabulum fracture, left S32.415A Encounter type: initial encounter Fracture alignment: nondisplaced Fracture type: closed Sublocation of acetabulum: anterior wall Pelvic fracture S32.9XXA Fall W19.XXXA Encounter type: initial encounter Thrombocytopenia D69.6 Asthma J45.909 Esophageal reflux K21.9 Hypertension I10 Hyperlipidemia E78.5 Hypothyroidism E03.9 Diabetes mellitus, type II E11.9 Hepatic cirrhosis K74.60 Vascular disease I99.9 DVT prophylaxis Z29.9 (1) Left humeral fracture Encounter type: initial encounter Fracture alignment: displaced Fracture type: closed Humerus Location: proximal (2) Acetabulum fracture, left Encounter type: initial encounter Fracture alignment: nondisplaced Fracture type: closed Sublocation of acetabulum: anterior wall Qualified Code(s): S32.415A - Nondisplaced fracture of anterior wall of left acetabulum, initial encounter for closed fracture (3) Fall Encounter type: initial encounter Qualified Code(s): W19.XXXA - Unspecified fall, initial encounter
[2021-04-12] MEDS: PARoxetine HCL 20 MG TAB PO SCH (20:24)
[2021-04-12] MEDS: ATORVASTATIN 10 MG TAB PO SCH (20:24)
[2021-04-13] MEDS: HYDROmorphone HCL 2 MG TAB PO PRN ×3 (02:19→20:17)
[2021-04-13] MEDS: LEVOTHYROXINE SODIUM 100 MCG TABLET PO SCH (05:27)
[2021-04-13] MEDS: ACETAMINOPHEN 325 MG TAB PO SCH ×4 (05:27→23:06)
[2021-04-13 08:52] LABS: Basophils # (auto) 0.01 K/uL (0-0.2); Basophils % (auto) 0.3 %; Eosinophils # (auto) 0.16 K/uL (0-0.5); Eosinophils % (auto) 5.1 %; Hemoglobin 9.6 g/dL (12.0-16.0); Immature Granulocytes # (auto) 0.07 K/uL (0.00-0.02); Immature Granulocytes % (auto) 2.2 %; Lymphocytes % (auto) 31.9 %; Mean Corpuscular Hemoglobin 30.4 pg (25-34); Mean Corpuscular Hgb Conc 33.1 g/dL (32-36); Mean Corpuscular Volume 91.8 fL (80-100); Mean Platelet Volume 8.8 fL (7.4-10.4); Monocytes % (auto) 9.6 %; Neutrophils # (auto) 1.59 K/uL (1.4-6.5); Neutrophils % (auto) 50.9 %; Platelet Count 129 K/uL (130-400); RDW Coefficient of Variation 14.1 % (11.5-14.5); RDW Standard Deviation 46.3 fL (36.4-46.3); Red Blood Count 3.16 M/uL (4.2-5.4); White Blood Count 3.13 K/uL (4.8-10.8)
[2021-04-13] MEDS: INSULIN ASPART 100 UNITS/ML 3 ML PEN SC SCH ×3 (09:01→17:33)
[2021-04-13] MEDS: ENOXAPARIN INJ 30 MG/0.3 ML SYR SQ SCH (09:03)
[2021-04-13] MEDS: FLUTICASONE/VILANTEROL 200/25MCG 14 PUFFS/INHALER INH SCH (09:05)
[2021-04-13] MEDS: LOSARTAN POTASSIUM 50 MG TAB PO SCH (09:06)
[2021-04-13] MEDS: SENNA 8.6 MG TAB PO SCH (09:07)
[2021-04-13] MEDS: PANTOprazole 40 MG TAB PO SCH (09:07)
[2021-04-13] MEDS: MULTIVITAMIN TAB PO SCH (09:07)
[2021-04-13 09:08] LABS: Polychromasia 1+
[2021-04-13] MEDS: DOCUSATE SODIUM 100 MG CAP PO SCH ×2 (09:09→20:18)
--- NOTE | 2021-04-13 17:14 | Hospitalist Progress Note ---
Date of Service April 13, 2021 Assessment & Plan (1) Left humeral fracture: Plan: This is a 70-year-old female that lives alone. She had a mechanical fall resulting in fracture of left humerus, left acetabulum of hip, and left pubic bone. She came to the emergency room department via ambulance. Now s/p Left reverse total shoulder arthroplasty with Dr. Zamora on 04/04 she is Right hand dominant Doing well post-op with some expected pain but controlled with pain medication and proper adjustment in sling Hemovac drain removed on 04/06 Hgb down slightly but stable (9.9 when last checked) post-op pain control with p.o. dilaudid as is allergic to other opioids Continue with sling for immobilization, allowed to do passive pendulum like motion of the left shoulder only as per orthopedics continue bowel regimen with senna, docusate, MiraLAX as needed CBC with plts>50 and hgb stable, started Lovenox 30mg SQ once daily more for hip fracture/immobility and continue for 2 weeks--> follow CBC q3 days while on this given h/o thrombocytopenia and with pelvic fracture PT/OT recommend rehab-awaiting placement -have since discontinued her Valdivia catheter and is voiding on own, moving bowels Thumb spica splint initially noted. Did discuss this with orthopedics and it was due to some pain. Follow-up wrist x-ray done as recommended by Ortho showing no fracture. Thumb spica splint removed. repeat xray of the left wrist: IMPRESSION: No definite acute fracture or dislocation. Degenerative changes and osteopenia. We will need to follow-up with Ortho in 10 to 14 days from procedure (04/14 through 04/16). Will reconsult on Thursday prior to D/C (2) Acetabulum fracture, left: Plan: As above Pain control pain is improving allowed to weight bear as tolerated Seen by orthopedics and nonsurgical fracture. Appreciate recommendations (3) Pelvic fracture: Plan: As above, fracture of the left inferior pubic ramus that is nondisplaced secondary to fall Seen by orthopedics and nonsurgical fracture. Appreciate recommendations (4) Fall: Plan: This was a mechanical fall. There is no loss of consciousness. Patient had no dizziness or other contributing factors. Discussion with patient about returning home. She lives alone. Patient agrees to rehab facility on discharge PT/OT (5) Thrombocytopenia: Plan: secondary to cirrhosis and splenomegaly, chronic for years Platelets stable Imaging reviewed. Ruled out intraabdominal hemorrhage follow CBC tomorrow and every 3-5 days while on lovenox (which is recommended for 14 days-- 04/18/21 would complete last dose) ok to use Lovenox unless plts<50k (6) Asthma: Plan: Generally well controlled Patient has an HFA inhaler as well as nebulizer at home No adventitious sounds on auscultation Her medications include albuterol HFA rescue inhaler, fluticasone 500/salmeterol 50 (Advair) Oxygenating well. No bronchospasm. Most recent pulmonary function testing with spirometry only. This was done 04/27/2019. This reflected mild obstructive airway disease with no restrictive disease FVC 2.55 or 80% of predicted FEV1 1.87 or 76% of predicted FEV1/FVC 73% which is 95% of predicted DLCO is not available (7) Esophageal reflux: Plan: No evidence of epigastric discomfort Omeprazole at home Continue pantoprazole while inpatient (8) Hypertension: Plan: No chest pain or tightness initially losartan was held. This can be resumed now Hemodynamically stable EKG with a rate of 83 bpm QT interval 394 ms QTC 462 ms EKG interpretation by Dr. 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 Abnormal ECG When compared with ECG of 03-OCT-2006 07:45, Anteroseptal infarct is now Present Inferior infarct is now Present No known cardiac history and no angina (9) Hyperlipidemia: Plan: Continue atorvastatin 10 mg daily-consider increasing to high intensity given known mesenteric artery stenosis-defer to PCP (10) Hypothyroidism: Plan: Continue levothyroxine 100 mcg daily TSH normal in 10/2020 (11) Diabetes mellitus, type II: Plan: Diet controlled No medications or insulin use at home Hemoglobin A1c 5.5% NovoLog sliding scale insulin while inpatient--blood sugars have been well controlled. Okay to DC blood sugar monitoring at this time (12) Hepatic cirrhosis: Plan: No history of alcohol abuse With thrombocytopenia Coagulation factors within normal limits INR 1.2 Outpatient management (13) Vascular disease: Plan: Mesenteric stenosis Continue statin should be on ASA but likely not given thrombocytopenia--> defer to PCP (14) DVT prophylaxis: Plan: on Lovenox 30mg SQ once daily x 2 weeks-we will need to follow CBC after discharge to ensure platelets do not go below 50 GUILLERMINA hose/SCDs Dispo-medically stable for discharge, but awaiting rehab placement-case mgmt on board. needs approval and authorization (? Thursday) Plan: Plan of care to be discussed with Dr. Seaman Admission and Anticipated Discharge Date Admission Date: April 03, 2021 Subjective Patient seen on daily rounds today. Vocalizes no complaints or concerns. Was having increased pain in her shoulder but controlled with medication. Moving bowel and bladder without difficulty. Still awaiting placement/bed availability Review of Systems Review of Systems: All systems reviewed and are unremarkable except as noted in HPI and below Denies fevers, chills, headache, nasal congestion, sore throat, cough, chest pain, shortness of breath, palpitations, orthopnea, PND, abdominal pain, nausea, vomiting, diarrhea, constipation, dysuria, hematuria, frequency, back pain, joint pain or swelling, easy bruising or bleeding, skin lesions or rashes. Physical Exam Physical Exam: General: Resting comfortably in her hospital bed/bedside chair. NAD. HEENT: Head is AT/NC buccal mucosa is moist and pink Neck: No JVD. Negative hepatojugular reflex Cardiac: RRR with 2/6 KATHERINE Lungs: CTA without W/R/R Abdomen: Normoactive X4. Soft and nontender in all quadrants. Extremities: Left upper extremity remains in a postsurgical sling. Radial pulse intact and symmetrical bilaterally. Capillary refill +2. Fine motor and dexterity intact. Neuro: A&O X4 cranial nerves II through XII are grossly intact no focal neuro deficits Skin: No obvious skin lesions or rashes Psych: Appropriate affect pleasant and cooperative Results & Data Results & Data ([facility]) Vital Signs (Past 12 Hours) Vital Signs Temp Pulse Pulse Resp BP Pulse Ox 04/13/21 14:47 37.1 C 74 16 116/64 95 04/13/21 07:57 36.6 C 64 18 150/70 H 97 Laboratory Results 04/13/21 08:27 04/12/21 06:30 PG Care Time/CCT Total # of Minutes Spent Total Time Spent with Patient: Total time spent is greater than 50% in coordination of care (as documented) at patient's floor/unit and/or counseling patient: C[place] [address] Subseq Hosp Care Lvl 1 Patient Type Established History Problem Focused Exam Problem Focused Medical Decision Making Straight Forward Diagnoses Left humeral fracture S42.302A Encounter type: initial encounter Fracture alignment: displaced Fracture type: closed Humerus Location: proximal Acetabulum fracture, left S32.415A Encounter type: initial encounter Fracture alignment: nondisplaced Fracture type: closed Sublocation of acetabulum: anterior wall Pelvic fracture S32.9XXA Fall W19.XXXA Encounter type: initial encounter Thrombocytopenia D69.6 Asthma J45.909 Esophageal reflux K21.9 Hypertension I10 Hyperlipidemia E78.5 Hypothyroidism E03.9 Diabetes mellitus, type II E11.9 Hepatic cirrhosis K74.60 Vascular disease I99.9 DVT prophylaxis Z29.9 (1) Left humeral fracture Encounter type: initial encounter Fracture alignment: displaced Fracture type: closed Humerus Location: proximal (2) Acetabulum fracture, left Encounter type: initial encounter Fracture alignment: nondisplaced Fracture type: closed Sublocation of acetabulum: anterior wall Qualified Code(s): S32.415A - Nondisplaced fracture of anterior wall of left acetabulum, initial encounter for closed fracture (3) Fall Encounter type: initial encounter Qualified Code(s): W19.XXXA - Unspecified fall, initial encounter
[2021-04-13] MEDS: ATORVASTATIN 10 MG TAB PO SCH (20:18)
[2021-04-13] MEDS: PARoxetine HCL 20 MG TAB PO SCH (20:18)
[2021-04-14] MEDS: HYDROmorphone HCL 2 MG TAB PO PRN ×2 (01:51→23:09)
[2021-04-14] MEDS: ACETAMINOPHEN 325 MG TAB PO SCH ×4 (05:07→23:08)
[2021-04-14] MEDS: LEVOTHYROXINE SODIUM 100 MCG TABLET PO SCH (05:08)
[2021-04-14] MEDS: FLUTICASONE/VILANTEROL 200/25MCG 14 PUFFS/INHALER INH SCH (08:13)
[2021-04-14] MEDS: DOCUSATE SODIUM 100 MG CAP PO SCH ×2 (08:13→20:53)
[2021-04-14] MEDS: PANTOprazole 40 MG TAB PO SCH (08:13)
[2021-04-14] MEDS: ENOXAPARIN INJ 30 MG/0.3 ML SYR SQ SCH (08:13)
[2021-04-14] MEDS: LOSARTAN POTASSIUM 50 MG TAB PO SCH (08:14)
[2021-04-14] MEDS: SENNA 8.6 MG TAB PO SCH (08:14)
[2021-04-14] MEDS: MULTIVITAMIN TAB PO SCH (08:14)
[2021-04-14] MEDS ORDERED: HYDROmorphone HCL 2 MG TAB PO PRN (17:19)
--- NOTE | 2021-04-14 17:24 | Hospitalist Progress Note ---
Date of Service April 14, 2021 Assessment & Plan (1) Left humeral fracture: Plan: This is a 70-year-old female that lives alone. She had a mechanical fall resulting in fracture of left humerus, left acetabulum of hip, and left pubic bone. She came to the emergency room department via ambulance. Now s/p Left reverse total shoulder arthroplasty with Dr. Zamora on 04/04 she is Right hand dominant Doing well post-op with some expected pain but controlled with pain medication and proper adjustment in sling Hemovac drain removed on 04/06 Hgb down slightly but stable (9.9 when last checked) has dilaudid po for pain as allergy to others. Will initiate ultram at attempts to de-escalate pain regimen (with dilaudid only for breakthrough) Continue with sling for immobilization, allowed to do passive pendulum like motion of the left shoulder only as per orthopedics continue bowel regimen with senna, docusate, MiraLAX as needed CBC with plts>50 and hgb stable, started Lovenox 30mg SQ once daily more for hip fracture/immobility and continue for 2 weeks--> follow CBC q3 days while on this given h/o thrombocytopenia and with pelvic fracture PT/OT recommend rehab-awaiting placement -have since discontinued her Valdivia catheter and is voiding on own, moving bowels Thumb spica splint initially noted. Did discuss this with orthopedics and it was due to some pain. Follow-up wrist x-ray done as recommended by Ortho showing no fracture. Thumb spica splint removed. repeat xray of the left wrist: IMPRESSION: No definite acute fracture or dislocation. Degenerative changes and osteopenia. We will need to follow-up with Ortho in 10 to 14 days from procedure (04/14 through 04/16). Will reconsult on Thursday prior to D/C (2) Acetabulum fracture, left: Plan: As above Pain control pain is improving allowed to weight bear as tolerated Seen by orthopedics and nonsurgical fracture. Appreciate recommendations (3) Pelvic fracture: Plan: As above, fracture of the left inferior pubic ramus that is nondisplaced secondary to fall Seen by orthopedics and nonsurgical fracture. Appreciate recommendations (4) Fall: Plan: This was a mechanical fall. There is no loss of consciousness. Patient had no dizziness or other contributing factors. Discussion with patient about returning home. She lives alone. Patient agrees to rehab facility on discharge PT/OT (5) Thrombocytopenia: Plan: secondary to cirrhosis and splenomegaly, chronic for years Platelets stable Imaging reviewed. Ruled out intraabdominal hemorrhage follow CBC tomorrow and every 3-5 days while on lovenox (which is recommended for 14 days-- 04/18/21 would complete last dose). plt count has remained stable ok to use Lovenox unless plts<50k (6) Asthma: Plan: Generally well controlled Patient has an HFA inhaler as well as nebulizer at home No adventitious sounds on auscultation Her medications include albuterol HFA rescue inhaler, fluticasone 500/salmeterol 50 (Advair) Oxygenating well. No bronchospasm. Most recent pulmonary function testing with spirometry only. This was done 04/27/2019. This reflected mild obstructive airway disease with no restrictive disease FVC 2.55 or 80% of predicted FEV1 1.87 or 76% of predicted FEV1/FVC 73% which is 95% of predicted DLCO is not available (7) Esophageal reflux: Plan: No evidence of epigastric discomfort Omeprazole at home Continue pantoprazole while inpatient (8) Hypertension: Plan: No chest pain or tightness initially losartan was held. This can be resumed now Hemodynamically stable EKG with a rate of 83 bpm QT interval 394 ms QTC 462 ms EKG interpretation by Dr. 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 Abnormal ECG When compared with ECG of 03-OCT-2006 07:45, Anteroseptal infarct is now Present Inferior infarct is now Present No known cardiac history and no angina (9) Hyperlipidemia: Plan: Continue atorvastatin 10 mg daily-consider increasing to high intensity given known mesenteric artery stenosis-defer to PCP (10) Hypothyroidism: Plan: Continue levothyroxine 100 mcg daily TSH normal in 10/2020 (11) Diabetes mellitus, type II: Plan: Diet controlled No medications or insulin use at home Hemoglobin A1c 5.5% NovoLog sliding scale insulin while inpatient--blood sugars have been well controlled. Okay to DC blood sugar monitoring at this time (12) Hepatic cirrhosis: Plan: No history of alcohol abuse With thrombocytopenia Coagulation factors within normal limits INR 1.2 Outpatient management (13) Vascular disease: Plan: Mesenteric stenosis Continue statin should be on ASA but likely not given thrombocytopenia--> defer to PCP (14) DVT prophylaxis: Plan: on Lovenox 30mg SQ once daily x 2 weeks-we will need to follow CBC after discharge to ensure platelets do not go below 50 GUILLERMINA hose/SCDs Dispo-medically stable for discharge, but awaiting rehab placement-case mgmt on board. needs approval and authorization (? Thursday) Plan: Plan of care to be discussed with Dr. Seaman Admission and Anticipated Discharge Date Admission Date: April 03, 2021 Subjective Patient seen on daily rounds today. Vocalizes no significant complaints or concerns. Pain adequately controlled. Still awaiting placement. Denies fevers, chills, chest pain, shortness of breath, abdominal pain, nausea, vomiting, GI/ symptomatology. Review of Systems Review of Systems: All systems reviewed and are unremarkable except as noted in HPI and below Denies fevers, chills, headache, nasal congestion, sore throat, cough, chest pain, shortness of breath, palpitations, orthopnea, PND, abdominal pain, nausea, vomiting, diarrhea, constipation, dysuria, hematuria, frequency, back pain, joint pain or swelling, easy bruising or bleeding, skin lesions or rashes. Physical Exam Physical Exam: General: Resting comfortably in her hospital bed/bedside chair. NAD. HEENT: Head is AT/NC buccal mucosa is moist and pink Neck: No JVD. Negative hepatojugular reflex Cardiac: RRR with 2/6 KATHERINE Lungs: CTA without W/R/R Abdomen: Normoactive X4. Soft and nontender in all quadrants. Extremities: Left upper extremity remains in a postsurgical sling. Radial pulse intact and symmetrical bilaterally. Capillary refill +2. Fine motor and dexterity intact. Neuro: A&O X4 cranial nerves II through XII are grossly intact no focal neuro deficits Skin: No obvious skin lesions or rashes Psych: Appropriate affect pleasant and cooperative Results & Data Results & Data ([facility]) Vital Signs (Past 12 Hours) Vital Signs Temp Pulse Pulse Resp BP Pulse Ox 04/14/21 15:41 37.0 C 65 16 146/70 H 96 04/14/21 07:12 36.5 C 61 16 159/77 H 97 Laboratory Results 04/13/21 08:27 04/12/21 06:30 PG Care Time/CCT Total # of Minutes Spent Total Time Spent with Patient: Total time spent is greater than 50% in coordination of care (as documented) at patient's floor/unit and/or counseling patient: Coding [place] [address] Subseq Hosp Care Lvl 1 Patient Type Established History Problem Focused Exam Problem Focused Medical Decision Making Straight Forward Diagnoses Left humeral fracture S42.302A Encounter type: initial encounter Fracture alignment: displaced Fracture type: closed Humerus Location: proximal Acetabulum fracture, left S32.415A Encounter type: initial encounter Fracture alignment: nondisplaced Fracture type: closed Sublocation of acetabulum: anterior wall Pelvic fracture S32.9XXA Fall W19.XXXA Encounter type: initial encounter Thrombocytopenia D69.6 Asthma J45.909 Esophageal reflux K21.9 Hypertension I10 Hyperlipidemia E78.5 Hypothyroidism E03.9 Diabetes mellitus, type II E11.9 Hepatic cirrhosis K74.60 Vascular disease I99.9 DVT prophylaxis Z29.9 (1) Left humeral fracture Encounter type: initial encounter Fracture alignment: displaced Fracture type: closed Humerus Location: proximal (2) Acetabulum fracture, left Encounter type: initial encounter Fracture alignment: nondisplaced Fracture type: closed Sublocation of acetabulum: anterior wall Qualified Code(s): S32.415A - Nondisplaced fracture of anterior wall of left acetabulum, initial encounter for closed fracture (3) Fall Encounter type: initial encounter Qualified Code(s): W19.XXXA - Unspecified fall, initial encounter
[2021-04-14] MEDS: ATORVASTATIN 10 MG TAB PO SCH (20:52)
[2021-04-14] MEDS: PARoxetine HCL 20 MG TAB PO SCH (20:53)
[2021-04-14] MEDS: traMADol HCL 50 MG TABLET PO PRN (20:55)
[2021-04-15] MEDS: ACETAMINOPHEN 325 MG TAB PO SCH ×4 (05:52→23:07)
[2021-04-15] MEDS: LEVOTHYROXINE SODIUM 100 MCG TABLET PO SCH (05:52)
[2021-04-15 07:48] LABS: Creatinine Clr Calc Pharmacy 95.9 ml/min; Est GFR (African American) 109.8 ml/min; Est GFR (Non-African American) 94.7 ml/min
[2021-04-15] MEDS: HYDROmorphone HCL 2 MG TAB PO PRN ×2 (09:57→23:07)
[2021-04-15] MEDS: DOCUSATE SODIUM 100 MG CAP PO SCH ×2 (09:57→20:58)
[2021-04-15] MEDS: PANTOprazole 40 MG TAB PO SCH (09:57)
[2021-04-15] MEDS: ENOXAPARIN INJ 30 MG/0.3 ML SYR SQ SCH (09:57)
[2021-04-15] MEDS: LOSARTAN POTASSIUM 50 MG TAB PO SCH (09:57)
[2021-04-15] MEDS: MULTIVITAMIN TAB PO SCH (09:57)
[2021-04-15] MEDS: SENNA 8.6 MG TAB PO SCH (09:57)
[2021-04-15] MEDS: FLUTICASONE/VILANTEROL 200/25MCG 14 PUFFS/INHALER INH SCH (09:58)
--- NOTE | 2021-04-15 16:40 | Hospitalist Progress Note ---
Date of Service April 15, 2021 Assessment & Plan (1) Left humeral fracture: Plan: This is a 70-year-old female that lives alone. She had a mechanical fall resulting in fracture of left humerus, left acetabulum of hip, and left pubic bone. She came to the emergency room department via ambulance. Now s/p Left reverse total shoulder arthroplasty with Dr. Zamora on 04/04 she is Right hand dominant Doing well post-op with some expected pain but controlled with pain medication and proper adjustment in sling Hemovac drain removed on 04/06 Hgb down slightly but stable (9.9 when last checked) has dilaudid po for pain as allergy to others. Will initiate ultram at attempts to de-escalate pain regimen (with dilaudid only for breakthrough). Pain cont rolled with Ultram. Use this on discharge. Continue with sling for immobilization, allowed to do passive pendulum like motion of the left shoulder only as per orthopedics continue bowel regimen with senna, docusate, MiraLAX as needed CBC with plts>50 and hgb stable, started Lovenox 30mg SQ once daily more for hip fracture/immobility and continue for 2 weeks--> follow CBC q3 days while on this given h/o thrombocytopenia and with pelvic fracture PT/OT recommend rehab-awaiting placement. Hopeful discharge tomorrow Thumb spica splint initially noted. Did discuss this with orthopedics and it was due to some pain. Follow-up wrist x-ray done as recommended by Ortho showing no fracture. Thumb spica splint removed. repeat xray of the left wrist: IMPRESSION: No definite acute fracture or dislocation. Degenerative changes and osteopenia. We will need to follow-up with Ortho in 10 to 14 days from procedure (04/14 through 04/16). Will reconsult on Thursday prior to D/C (2) Acetabulum fracture, left: Plan: As above Pain generally controlled with Ultram Weight bearing as tolerated Seen by orthopedics and nonsurgical fracture. Appreciate recommendations Outpatient management by orthopedics (3) Pelvic fracture: Plan: As above, fracture of the left inferior pubic ramus that is nondisplaced secondary to fall Seen by orthopedics and will be managed as nonsurgical fracture. Outpatient management with orthopedics (4) Fall: Plan: This was a mechanical fall. There is no loss of consciousness. Patient had no dizziness or other contributing factors. Discussion with patient about returning home. She lives alone. Patient agrees to rehab facility on discharge Continue PT/OT Rehab facility to determine need for home health at time of discharge (5) Thrombocytopenia: Plan: secondary to cirrhosis and splenomegaly, chronic for years Platelets stable Imaging reviewed. Ruled out intraabdominal hemorrhage follow CBC tomorrow and every 3-5 days while on lovenox (which is recommended for 14 days-- 04/18/21 would complete last dose). ok to use Lovenox unless plts<50k (6) Asthma: Plan: Generally well controlled Patient has an HFA inhaler as well as nebulizer at home No adventitious sounds on auscultation Her medications include albuterol HFA rescue inhaler, fluticasone 500/salmeterol 50 (Advair) Oxygenating well. No bronchospasm. Most recent pulmonary function testing with spirometry only. This was done 04/27/2019. This reflected mild obstructive airway disease with no restrictive disease FVC 2.55 or 80% of predicted FEV1 1.87 or 76% of predicted FEV1/FVC 73% which is 95% of predicted DLCO is not available Continue supportive care (7) Esophageal reflux: Plan: Omeprazole at home Continue pantoprazole while inpatient (8) Hypertension: Plan: No chest pain or tightness initially losartan was held. This has been resumed Hemodynamically stable EKG with a rate of 83 bpm QT interval 394 ms QTC 462 ms EKG interpretation by Dr. 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 Abnormal ECG When compared with ECG of 03-OCT-2006 07:45, Anteroseptal infarct is now Present Inferior infarct is now Present No indication as to when this may have changed since September 2006 No current evidence of ACS No known cardiac history and no angina Troponin is negative Continues to be hemodynamically stable (9) Hyperlipidemia: Plan: Continue atorvastatin 10 mg daily-consider increasing to high intensity given known mesenteric artery stenosis-defer to PCP (10) Hypothyroidism: Plan: Continue levothyroxine 100 mcg daily TSH normal in 10/2020 (11) Diabetes mellitus, type II: Plan: Diet controlled No medications or insulin use at home Hemoglobin A1c 5.5% NovoLog sliding scale insulin while inpatient--blood sugars have been well controlled. Okay to DC blood sugar monitoring at this time No further indication for NovoLog sliding scale (12) Hepatic cirrhosis: Plan: No history of alcohol abuse With thrombocytopenia Coagulation factors within normal limits INR 1.2 Outpatient management (13) Vascular disease: Plan: Mesenteric stenosis Continue statin should be on ASA but likely not given thrombocytopenia--> defer to PCP (14) DVT prophylaxis: Plan: on Lovenox 30mg SQ once daily x 2 weeks-we will need to follow CBC after discha rge to ensure platelets do not go below 50 GUILLERMINA hose/SCDs Dispo-continues to be medically stable for discharge, but awaiting rehab placement-case mgmt on board. Plan: Plan of care to be discussed with Dr. Seaman Admission and Anticipated Discharge Date Admission Date: April 03, 2021 Subjective Attending: Dr. Oakley Patient seen at bedside. She has no acute complaints. She is frustrated waiting for placement. She wants to "get up and go". Pain generally controlled. Sling in place. No complaints of fever, chills, sweats, rigors. No complaints with dressing at left shoulder. No nausea or vomiting. No diarrhea. Daily bowel movement. No other acute complaints. Review of Systems Review of Systems: All systems reviewed & are unremarkable except as noted in Subjective Physical Exam Physical Exam: GENERAL : No acute distress EYES: No icterus, gaze conjugate NOSE: No evidence of epistaxis MOUTH: No lesions or candidiasis NECK: Supple LUNGS: CTA B/L, no wheezes, rales or rhonchi HEART: Regular, rate controlled ABDOMEN: Soft, NT, ND, BS Present EXTREMITIES: No LE edema, pedal pulses intact. Left upper extremity in sling and secured at waistline. Pain generally controlled. Dressing dry and intact at left shoulder. NEURO: A&OX3 Results & Data Results & Data ([facility]) Vital Signs (Past 12 Hours) Vital Signs Temp Pulse Pulse Resp BP Pulse Ox 04/15/21 16:05 37.0 C 64 22 128/54 L 96 04/15/21 07:44 36.9 C 65 20 164/67 H 95 Laboratory Results 04/13/21 08:27 04/15/21 06:45 Diagnostic Findings No further diagnostic imaging PG Care Time/CCT Total # of Minutes Spent Total Time Spent with Patient: Total time spent is greater than 50% in coordination of care (as documented) at patient's floor/unit and/or counseling patient: Coding Level of Care Code 37151 Subseq Hosp Care Lvl 2 Diagnoses Left humeral fracture S42.302A Encounter type: initial encounter Fracture alignment: displaced Fracture type: closed Humerus Location: proximal Acetabulum fracture, left S32.415A Encounter type: initial encounter Fracture alignment: nondisplaced Fracture type: closed Sublocation of acetabulum: anterior wall Pelvic fracture S32.9XXA Fall W19.XXXA Encounter type: initial encounter Thrombocytopenia D69.6 Asthma J45.909 Esophageal reflux K21.9 Hypertension I10 Hyperlipidemia E78.5 Hypothyroidism E03.9 Diabetes mellitus, type II E11.9 Hepatic cirrhosis K74.60 Vascular disease I99.9 DVT prophylaxis Z29.9 Time Spent (min) 30 (1) Left humeral fracture Encounter type: initial encounter Fracture alignment: displaced Fracture type: closed Humerus Location: proximal (2) Acetabulum fracture, left Encounter type: initial encounter Fracture alignment: nondisplaced Fracture type: closed Sublocation of acetabulum: anterior wall Qualified Code(s): S32.415A - Nondisplaced fracture of anterior wall of left acetabulum, initial encounter for closed fracture (3) Fall Encounter type: initial encounter Qualified Code(s): W19.XXXA - Unspecified fall, initial encounter
[2021-04-15] MEDS: ATORVASTATIN 10 MG TAB PO SCH (20:57)
[2021-04-15] MEDS: PARoxetine HCL 20 MG TAB PO SCH (20:57)
[2021-04-16] MEDS: traMADol HCL 50 MG TABLET PO PRN (01:33)
[2021-04-16] MEDS: ACETAMINOPHEN 325 MG TAB PO SCH ×3 (06:05→18:03)
[2021-04-16] MEDS: LEVOTHYROXINE SODIUM 100 MCG TABLET PO SCH (06:05)
[2021-04-16] MEDS: MULTIVITAMIN TAB PO SCH (08:27)
[2021-04-16] MEDS: LOSARTAN POTASSIUM 50 MG TAB PO SCH (08:27)
[2021-04-16] MEDS: ENOXAPARIN INJ 30 MG/0.3 ML SYR SQ SCH (08:27)
[2021-04-16] MEDS: PANTOprazole 40 MG TAB PO SCH (08:27)
[2021-04-16] MEDS: DOCUSATE SODIUM 100 MG CAP PO SCH ×2 (08:27→20:45)
[2021-04-16] MEDS: FLUTICASONE/VILANTEROL 200/25MCG 14 PUFFS/INHALER INH SCH (08:28)
[2021-04-16] MEDS: SENNA 8.6 MG TAB PO SCH (08:30)
[2021-04-16] MEDS: HYDROmorphone HCL 2 MG TAB PO PRN ×2 (13:05→20:49)
[2021-04-16] MEDS ORDERED: hydrALAZINE HCL 20 MG/ML VIAL IV ONE (15:11)
[2021-04-16] MEDS ORDERED: hydrALAZINE HCL 20 MG/ML VIAL IV PRN (15:11)
--- NOTE | 2021-04-16 15:12 | Hospitalist Progress Note ---
Date of Service April 16, 2021 Assessment & Plan (1) Left humeral fracture: Plan: This is a 70-year-old female that lives alone. She had a mechanical fall resulting in fracture of left humerus, left acetabulum of hip, and left pubic bone. She came to the emergency room department via ambulance. Now s/p Left reverse total shoulder arthroplasty with Dr. Zamora on 04/04 she is Right hand dominant Doing well post-op with some expected pain but controlled with pain medication and proper adjustment in sling Hemovac drain removed on 04/06 Hgb down slightly but stable (9.9 when last checked) has dilaudid po for pain as allergy to others. Continue ultram at attempts to de-escalate pain regimen (with dilaudid only for breakthrough). Pain controlled with Ultram. Use this on discharge. Continue with sling for immobilization, allowed to do passive pendulum like motion of the left shoulder only as per orthopedics continue bowel regimen with senna, docusate, MiraLAX as needed CBC with plts>50 and hgb stable, started Lovenox 30mg SQ once daily more for hip fracture/immobility and continue for 2 weeks--> follow CBC q3 days while on this given h/o thrombocytopenia and with pelvic fracture PT/OT recommend rehab-awaiting placement. Hopeful discharge tomorrow Thumb spica splint initially noted. Did discuss this with orthopedics and it was due to some pain. Follow-up wrist x-ray done as recommended by Ortho showing no fracture. Thumb spica splint removed. repeat xray of the left wrist: IMPRESSION: No definite acute fracture or dislocation. Degenerative changes and osteopenia. We will need to follow-up with Ortho in 10 to 14 days from procedure (04/14 through 04/16). Orthopedics will see patient today or tomorrow to evaluate for staple removal (2) Acetabulum fracture, left: Plan: As above Pain generally controlled with Ultram Weight bearing as tolerated Seen by orthopedics and nonsurgical fracture. Appreciate recommendations Outpatient management by orthopedics (3) Pelvic fracture: Plan: As above, fracture of the left inferior pubic ramus that is nondisplaced secondary to fall Seen by orthopedics and will be managed as nonsurgical fracture. Outpatient management with orthopedics (4) Fall: Plan: This was a mechanical fall. There is no loss of consciousness. Patient had no dizziness or other contributing factors. Discussion with patient about returning home. She lives alone. Patient agrees to rehab facility on discharge Continue PT/OT Rehab facility to determine need for home health at time of discharge (5) Thrombocytopenia: Plan: secondary to cirrhosis and splenomegaly, chronic for years Platelets stable. We will check repeat labs again tomorrow for stability Imaging reviewed. Ruled out intraabdominal hemorrhage follow CBC tomorrow and every 3-5 days while on lovenox (which is recommended for 14 days-- 04/18/21 would complete last dose). ok to use Lovenox unless plts<50k (6) Asthma: Plan: Generally well controlled Patient has an HFA inhaler as well as nebulizer at home No adventitious sounds on auscultation Her medications include albuterol HFA rescue inhaler, fluticasone 500/salmeterol 50 (Advair) Oxygenating well. No bronchospasm. Most recent pulmonary function testing with spirometry only. This was done 04/27/2019. This reflected mild obstructive airway disease with no restrictive disease FVC 2.55 or 80% of predicted FEV1 1.87 or 76% of predicted FEV1/FVC 73% which is 95% of predicted DLCO is not available Continue supportive care (7) Esophageal reflux: Plan: Omeprazole at home Continue pantoprazole while inpatient (8) Hypertension: Plan: No chest pain or tightness initially losartan was held. This has been resumed Hemodynamically stable EKG with a rate of 83 bpm QT interval 394 ms QTC 462 ms EKG interpretation by Dr. 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 Abnormal ECG When compared with ECG of 03-OCT-2006 07:45, Anteroseptal infarct is now Present Inferior infarct is now Present No indication as to when this may have changed since September 2006 No current evidence of ACS No known cardiac history and no angina Troponin is negative Continues to be hemodynamically stable (9) Hyperlipidemia: Plan: Continue atorvastatin 10 mg daily-consider increasing to high intensity given known mesenteric artery stenosis-defer to PCP (10) Hypothyroidism: Plan: Continue levothyroxine 100 mcg daily TSH normal in 10/2020 (11) Diabetes mellitus, type II: Plan: Diet controlled No medications or insulin use at home Hemoglobin A1c 5.5% NovoLog sliding scale insulin while inpatient--blood sugars have been well controlled. Okay to DC blood sugar monitoring at this time No further indication for NovoLog sliding scale (12) Hepatic cirrhosis: Plan: No history of alcohol abuse With thrombocytopenia Coagulation factors within normal limits INR 1.2 Outpatient management (13) Vascular disease: Plan: Mesenteric stenosis Continue statin should be on ASA but likely not given thrombocytopenia--> defer to PCP (14) DVT prophylaxis: Plan: on Lovenox 30mg SQ once daily x 2 weeks-we will need to follow CBC after discharge to ensure platelets do not go below 50 GUILLERMINA hose/SCDs Dispo-continues to be medically stable for discharge, but awaiting rehab placement-case mgmt on board. Plan: Plan of care to be discussed with Dr. Saeman Admission and Anticipated Discharge Date Admission Date: April 03, 2021 Subjective Attending: Dr. Oakley Patient seen and examined at bedside. She is in bedside chair. She has no acute complaints. Pain generally controlled. No fever. No nausea or vomiting. Some loose stool yesterday. She feels ready for discharge to rehab. Review of Systems Review of Systems: All systems reviewed & are unremarkable except as noted in Subjective Physical Exam Physical Exam: GENERAL : No acute distress EYES: No icterus, gaze conjugate NOSE: No evidence of epistaxis MOUTH: No lesions or candidiasis NECK: Supple LUNGS: CTA B/L, no wheezes, rales or rhonchi HEART: Regular, rate controlled ABDOMEN: Soft, NT, ND, BS Present EXTREMITIES: No LE edema, pedal pulses intact and equal bilaterally. Left arm in sling. Dressing is dry and intact without evidence of bleeding or discharge. No evidence of erythema or pain around dressing. NEURO: A&OX3 Results & Data Results & Data ([facility]) Vital Signs (Past 12 Hours) Vital Signs Temp Pulse Resp BP Pulse Ox 04/16/21 06:57 36.6 C 62 18 178/71 H 97 Laboratory Results 04/13/21 08:27 04/15/21 06:45 Diagnostic Findings No further diagnostic imaging PG Care Time/CCT Total # of Minutes Spent Total Time Spent with Patient: Total time spent is greater than 50% in coordination of care (as documented) at patient's floor/unit and/or counseling patient: Coding Level of Care Code 13551 Subseq Hosp Care Lvl 2 Diagnoses Left humeral fracture S42.302A Encounter type: initial encounter Fracture alignment: displaced Fracture type: closed Humerus Location: proximal Acetabulum fracture, left S32.415A Encounter type: initial encounter Fracture alignment: nondisplaced Fracture type: closed Sublocation of acetabulum: anterior wall Pelvic fracture S32.9XXA Fall W19.XXXA Encounter type: initial encounter Thrombocytopenia D69.6 Asthma J45.909 Esophageal reflux K21.9 Hypertension I10 Hyperlipidemia E78.5 Hypothyroidism E03.9 Diabetes mellitus, type II E11.9 Hepatic cirrhosis K74.60 Vascular disease I99.9 DVT prophylaxis Z29.9 Time Spent (min) 30 (1) Left humeral fracture Encounter type: initial encounter Fracture alignment: displaced Fracture type: closed Humerus Location: proximal (2) Acetabulum fracture, left Encounter type: initial encounter Fracture alignment: nondisplaced Fracture type: closed Sublocation of acetabulum: anterior wall Qualified Code(s): S32.415A - Nondisplaced fracture of anterior wall of left acetabulum, initial encounter for closed fracture (3) Fall Encounter type: initial encounter Qualified Code(s): W19.XXXA - Unspecified fall, initial encounter
[2021-04-16] MEDS: ATORVASTATIN 10 MG TAB PO SCH (20:44)
[2021-04-16] MEDS: PARoxetine HCL 20 MG TAB PO SCH (20:45)
[2021-04-17] MEDS: traMADol HCL 50 MG TABLET PO PRN ×2 (00:01→21:08)
[2021-04-17] MEDS: ACETAMINOPHEN 325 MG TAB PO SCH ×4 (00:02→17:58)
[2021-04-17 05:38] LABS: Basophils # (auto) 0.02 K/uL (0-0.2); Basophils % (auto) 0.5 %; Eosinophils # (auto) 0.16 K/uL (0-0.5); Eosinophils % (auto) 4.1 %; Hematocrit (blood only) 31.3 % (37-47); Hemoglobin 10.4 g/dL (12.0-16.0); Immature Granulocytes # (auto) 0.04 K/uL (0.00-0.02); Lymphocytes # (auto) 0.98 K/uL (1.2-3.4); Lymphocytes % (auto) 24.9 %; Mean Corpuscular Hemoglobin 30.7 pg (25-34); Mean Corpuscular Hgb Conc 33.2 g/dL (32-36); Mean Corpuscular Volume 92.3 fL (80-100); Monocytes % (auto) 10.2 %; Neutrophils # (auto) 2.33 K/uL (1.4-6.5); Neutrophils % (auto) 59.3 %; Platelet Count 135 K/uL (130-400); RDW Coefficient of Variation 14.6 % (11.5-14.5); RDW Standard Deviation 48.4 fL (36.4-46.3); Red Blood Count 3.39 M/uL (4.2-5.4); White Blood Count 3.93 K/uL (4.8-10.8)
[2021-04-17] MEDS: LEVOTHYROXINE SODIUM 100 MCG TABLET PO SCH (05:45)
[2021-04-17 05:59] LABS: BUN Creatinine Ratio 15.1 (10-20); Calcium 8.4 mg/dl (8.5-10.1); Est GFR (African American) 112.4 ml/min; Potassium 3.6 mmol/L (3.5-5.1)
--- NOTE | 2021-04-17 08:35 | Orthopedic Progress Note ---
Date of Service April 17, 2021 Assessment & Plan (1) Left humeral fracture: Plan: Postoperative day #13 status post left reverse total shoulder arthroplasty for comminuted proximal humerus fracture Nondisplaced fracture left acetabulum. -PT/TO-No formal therapy for shoulder at this time. May do pendulums, shrugs, elbow/wrist/hand motion. NWB LUE. PWB LLE. -She is awaiting placement for rehab. -Patient is 13 days s/p surgery. Okay to remove hortencia and place steri strips. - Patient should follow up in the office upon discharge. Please call [facility] at [phone] to make an appointment. -Orthopedics-related discharge instructions are listed in the Discharge section of the chart. -Orthopedics will sign off at this time. Please call with questions. Admission and Anticipated Discharge Date Admission Date: April 03, 2021 Subjective Patient resting in bed comfortably. Pain well controlled. No other complaints. She is awaiting rehab placement, possible discharge today. Review of Systems Review of Systems: All systems reviewed & are unremarkable except as noted in Subjective Physical Exam Physical Exam: Dressing to left shoulder is c/d/i. Incision healing well, no drainage or erythema. Sling in place. Fingers mobile. Good modern languages professor strength. Constitutional: well developed and well nourished; no acute distress Results & Data ([facility]) Vital Signs (Past 12 Hours) Vital Signs Temp Pulse Resp BP Pulse Ox 04/17/21 08:22 37.0 C 63 16 154/68 H 95 04/16/21 21:57 36.8 C 65 18 145/60 H 98 (1) Left humeral fracture Encounter type: initial encounter Fracture alignment: displaced Fracture type: closed Humerus Location: proximal
[2021-04-17] MEDS: SENNA 8.6 MG TAB PO SCH (09:06)
[2021-04-17] MEDS: FLUTICASONE/VILANTEROL 200/25MCG 14 PUFFS/INHALER INH SCH (09:13)
[2021-04-17] MEDS: LOSARTAN POTASSIUM 50 MG TAB PO SCH (09:13)
[2021-04-17] MEDS: PANTOprazole 40 MG TAB PO SCH (09:14)
[2021-04-17] MEDS: DOCUSATE SODIUM 100 MG CAP PO SCH ×2 (09:14→21:08)
[2021-04-17] MEDS: ENOXAPARIN INJ 30 MG/0.3 ML SYR SQ SCH (09:14)
[2021-04-17] MEDS: MULTIVITAMIN TAB PO SCH (09:14)
--- NOTE | 2021-04-17 15:33 | Hospitalist Progress Note ---
Date of Service April 17, 2021 Assessment & Plan (1) Left humeral fracture: Plan: Attending: Dr. Oakley Impression: This is a 70-year-old female that lives alone. She had a mechanical fall resulting in fracture of left humerus, left acetabulum of hip, and left pub ic bone. She came to the emergency room department via ambulance. Now s/p Left reverse total shoulder arthroplasty with Dr. Zamora on 04/04 she is Right hand dominant Doing well post-op with some expected pain but controlled with pain medication and proper adjustment in sling Hemovac drain removed on 04/06 Hgb is now up to 10.4 g/Nivia has dilaudid po for pain as allergy to others. Continue ultram at attempts to de-escalate pain regimen (with dilaudid only for breakthrough). Pain controlled with Ultram. Use this on discharge. Continue with sling for immobilization, allowed to do passive pendulum like motion of the left shoulder only as per orthopedics continue bowel regimen with senna, docusate, MiraLAX as needed CBC with plts>50 and hgb stable, started Lovenox 30mg SQ once daily more for hip fracture/immobility and continue for 2 weeks--> follow CBC q3 days while on this given h/o thrombocytopenia and with pelvic fracture Improved function with PT/OT now recommended for discharge home with home physical therapy. Hopeful discharge tomorrow. Thumb spica splint initially noted. Did discuss this with orthopedics and it was due to some pain. Follow-up wrist x-ray done as recommended by Ortho showing no fracture. Thumb spica splint removed but can be used as needed. repeat xray of the left wrist: IMPRESSION: No definite acute fracture or dislocation. Degenerative changes and osteopenia. Orthopedics note reviewed today. Order placed to remove hortencia from shoulder and placed Steri-Strips. Patient to follow-up with orthopedics on discharge (2) Acetabulum fracture, left: Plan: As above Pain generally controlled with Ultram Weight bearing as tolerated Seen by orthopedics and nonsurgical fracture. Appreciate recommendations Outpatient management by orthopedics (3) Pelvic fracture: Plan: As above, fracture of the left inferior pubic ramus that is nondisplaced secondary to fall Seen by orthopedics and will be managed as nonsurgical fracture. Outpatient management with orthopedics (4) Fall: Plan: This was a mechanical fall. There is no loss of consciousness. Patient had no dizziness or other contributing factors. Discussion with patient about returning home. She lives alone. Patient agrees to rehab facility on discharge Continue PT at home on discharge (5) Thrombocytopenia: Plan: Resolved -platelet count 135,000 secondary to cirrhosis and splenomegaly, chronic for years Platelets stable. We will check repeat labs again tomorrow for stability Imaging reviewed. Ruled out intraabdominal hemorrhage Lovenox (enoxaparin) is recommended for 14 days--we will give final dose tomorrow prior to discharge. (6) Asthma: Plan: Generally well controlled Patient has an HFA inhaler as well as nebulizer at home No adventitious sounds on auscultation Her medications include albuterol HFA rescue inhaler, fluticasone 500/salmeterol 50 (Advair) Oxygenating well. No bronchospasm. Most recent pulmonary function testing with spirometry only. This was done 04/27/2019. This reflected mild obstructive airway disease with no restrictive disease FVC 2.55 or 80% of predicted FEV1 1.87 or 76% of predicted FEV1/FVC 73% which is 95% of predicted DLCO is not available Outpatient follow-up with Dr. Casanova (7) Esophageal reflux: Plan: Omeprazole at home Continue pantoprazole while inpatient (8) Hypertension: Plan: No chest pain or tightness initially losartan was held. This has been resumed Hemodynamically stable EKG with a rate of 83 bpm QT interval 394 ms QTC 462 ms EKG interpretation by Dr. 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 Abnormal ECG When compared with ECG of 03-OCT-2006 07:45, Anteroseptal infarct is now Present Inferior infarct is now Present No indication as to when this may have changed since September 2006 No current evidence of ACS No known cardiac history and no angina Troponin is negative Continues to be hemodynamically stable (9) Hyperlipidemia: Plan: Continue atorvastatin 10 mg daily-consider increasing to high intensity given known mesenteric artery stenosis-defer to PCP (10) Hypothyroidism: Plan: Continue levothyroxine 100 mcg daily TSH normal in 10/2020 (11) Diabetes mellitus, type II: Plan: Diet controlled No medications or insulin use at home Hemoglobin A1c 5.5% NovoLog sliding scale insulin while inpatient--blood sugars have been well controlled. Okay to DC blood sugar monitoring at this time No further indication for NovoLog sliding scale (12) Hepatic cirrhosis: Plan: No history of alcohol abuse With thrombocytopenia Coagulation factors within normal limits INR 1.2 Outpatient management (13) Vascular disease: Plan: Mesenteric stenosis Continue statin should be on ASA but likely not given thrombocytopenia--> defer to PCP (14) DVT prophylaxis: Plan: on Lovenox 30mg SQ once daily x 2 weeks-we will give last dose tomorrow prior to discharge GUILLERMINA avalos/Harriet Dispo-discharge home tomorrow with home physical therapy Admission and Anticipated Discharge Date Admission Date: April 03, 2021 Subjective Attending: Dr. Oakley Patient seen and examined at bedside. She is doing well again today. Pain is generally controlled. She has no fever. She denies any other acute complaints. She is anticipating discharge in the next day or 2. Review of Systems Review of Systems: All systems reviewed & are unremarkable except as noted in Subjective Physical Exam Physical Exam: GENERAL : No acute distress EYES: No icterus, gaze conjugate NOSE: No evidence of epistaxis MOUTH: No lesions or candidiasis NECK: Supple LUNGS: CTA B/L, no wheezes, rales or rhonchi HEART: Regular, rate controlled ABDOMEN: Soft, NT, ND, BS Present EXTREMITIES: No LE edema, pedal pulses intact and equal bilaterally. Dressing is dry and intact at the left shoulder. Left arm remains in a sling and is immobilized to the trunk. NEURO: A&OX3 Results & Data Results & Data ([facility]) Vital Signs (Past 12 Hours) Vital Signs Temp Pulse Resp BP Pulse Ox 04/17/21 08:22 37.0 C 63 16 154/68 H 95 Laboratory Results 04/17/21 05:25 04/17/21 05:25 Diagnostic Findings No further diagnostic imaging PG Care Time/CCT Total # of Minutes Spent Total Time Spent with Patient: Total time spent is greater than 50% in service line coordinator rdination of care (as documented) at patient's floor/unit and/or counseling patient:30 minutes Coding Level of Care Code 72618 Subseq Hosp Care Lvl 2 Diagnoses Left humeral fracture S42.302A Encounter type: initial encounter Fracture alignment: displaced Fracture type: closed Humerus Location: proximal Acetabulum fracture, left S32.415A Encounter type: initial encounter Fracture alignment: nondisplaced Fracture type: closed Sublocation of acetabulum: anterior wall Pelvic fracture S32.9XXA Fall W19.XXXA Encounter type: initial encounter Thrombocytopenia D69.6 Asthma J45.909 Esophageal reflux K21.9 Hypertension I10 Hyperlipidemia E78.5 Hypothyroidism E03.9 Diabetes mellitus, type II E11.9 Hepatic cirrhosis K74.60 Vascular disease I99.9 DVT prophylaxis Z29.9 Time Spent (min) 30 (1) Left humeral fracture Encounter type: initial encounter Fracture alignment: displaced Fracture type: closed Humerus Location: proximal (2) Acetabulum fracture, left Encounter type: initial encounter Fracture alignment: nondisplaced Fracture type: closed Sublocation of acetabulum: anterior wall Qualified Code(s): S32.415A - Nondisplaced fracture of anterior wall of left acetabulum, initial encounter for closed fracture (3) Fall Encounter type: initial encounter Qualified Code(s): W19.XXXA - Unspecified fall, initial encounter
[2021-04-17] MEDS: PARoxetine HCL 20 MG TAB PO SCH (21:07)
[2021-04-17] MEDS: ATORVASTATIN 10 MG TAB PO SCH (21:07)
[2021-04-18] MEDS: ACETAMINOPHEN 325 MG TAB PO SCH ×3 (01:12→12:41)
[2021-04-18] MEDS: traMADol HCL 50 MG TABLET PO PRN (01:13)
[2021-04-18] MEDS: LEVOTHYROXINE SODIUM 100 MCG TABLET PO SCH (05:41)
[2021-04-18 07:07] LABS: Creatinine Clr Calc Pharmacy 91.2 ml/min; Est GFR (Non-African American) 93.1 ml/min
[2021-04-18] MEDS: MULTIVITAMIN TAB PO SCH (08:02)
[2021-04-18] MEDS: ENOXAPARIN INJ 30 MG/0.3 ML SYR SQ SCH (08:03)
[2021-04-18] MEDS: LOSARTAN POTASSIUM 50 MG TAB PO SCH (08:03)
[2021-04-18] MEDS: DOCUSATE SODIUM 100 MG CAP PO SCH (08:03)
[2021-04-18] MEDS: PANTOprazole 40 MG TAB PO SCH (08:04)
[2021-04-18] MEDS: SENNA 8.6 MG TAB PO SCH (08:05)
[2021-04-18] MEDS: FLUTICASONE/VILANTEROL 200/25MCG 14 PUFFS/INHALER INH SCH (09:36)
--- NOTE | 2021-04-18 11:58 | Discharge Summary ---
Date of Service April 18, 2021 Admission HPI Per Admitting Provider 70 YOF with past medical history of: Mild asthma, Constipation, GOOD cirrhosis, Hypothyroidism, HTN, GERD, thrombocytopenia, mesenteric and proximal celiac stenosis, pre-diabetic now on vegan diet with 30-40 lb weight loss and most recent A1c~5. The patient comes to the emergency room today after falling at home. The patient reports that she was rushing and tripped going from carpeting to hard floor and fell on her left side with her left arm extended. In the EMD the patient had multiple images performed, which revealed comminuted humeral neck fracture with displaced greater tuberosity. Her Hip CT revealed acute comminuted non-displaced fracture of the anterior wall of the left acetabulum and nondisplaced fracture of the inferior pubic ramus. The patient was given morphine for pain. [facility] physician discussed the case with from orthopaedics- [facility] of the left leg and arm, sling of shoulder. Patient will be admitted for pain control, await Orthopaedics evaluation and surgical correction if needed. Patient denies any cardiovascular disease or limiting of activity or dyspnea/chest pain with exertion. She has mild asthma for which she is on Albuterol and Advair. She reports she rarely needs to use her MUMTAZ only if she has a cold. She does not wake up at night with dyspnea and has no orthopnea. As above she has changed her diet and had planned weight loss which effectively decreased her HGBA1c. She follows with gastroenterology for her GOOD and her LFTs are normal on todays presentation with an INR of 1.2 and does not exhibit any evidence of encephalopathy. Her platelet counts are normally in the 80-100 range, this is followed by her PCP, she endorses some bruising but no overt bleeding or blood in her stools or urine. Overall she generally feels well and has no functional restrictions. She currently lives at home by herself and her son is close. She is open to rehab facility if she needs to following this admission. Patient has received her COVID vaccine and her COVID test on admission is: NEGATIVE Admission Exam Per Admitting Provider REVIEW OF SYSTEMS: Constitutional: No fever, sweats or chills Eyes: No diplopia, no worsening or blurred vision ENT: normal hearing, no trouble swallowing Respiratory: No cough, sputum, dyspnea at rest or on exertion Cardiovascular: No chest pain, tightness or palpitations Abdomen: (+) constipation, No pain, nausea, vomiting, diarrhea Musculoskeletal: (+) left arm, shoulder, flank, and hip pain. NO calf pain, swelling Neurologic: No weakness, numbness/tingling, or balance problems Psychiatric: No anxiety or depression Skin: No rash or itch Principal Diagnosis Fall resulting in humeral and acetabular fracture Discharge Exam GENERAL : No acute distress EYES: No icterus, gaze conjugate NOSE: No evidence of epistaxis MOUTH: No lesions or candidiasis NECK: Supple LUNGS: CTA B/L, no wheezes, rales or rhonchi HEART: Regular, rate controlled ABDOMEN: Soft, NT, ND, BS Present EXTREMITIES: No LE edema, pedal pulses intact and equal bilaterally. Dressing is dry and intact at the left shoulder. González removed. Tegaderm in place. Left arm remains in a sling and is immobilized to the trunk. NEURO: A&OX3 Discharge Data Allergies Allergy/AdvReac Type Severity Reaction Status Date / Time acetaminophen [From Percocet] Allergy Severe Throat Verified 04/05/21 11:39 swelling codeine Allergy Severe throat Verified 04/03/21 17:51 swelling/hives/dizziness oxycodone [From Percocet] Allergy Severe Throat Verified 04/05/21 11:39 swelling celecoxib Allergy Intermediate Hives Verified 04/03/21 17:51 Sulfa (Sulfonamide Allergy Intermediate Hives Verified 04/03/21 17:51 Antibiotics) Consultations 04/03/21 17:22 Consult Orthopedic Surgery Stat 04/03/21 17:26 ED Decision to Admit Stat 04/03/21 19:33 Consult Orthopedic Surgery Routine Procedures Performed Operation Date: 04/04/21 08:20 Actual Procedures p Left Fracture Reverse Total Shoulder Arthroplasty Cemented, Bicep Tenodesis, Repair and Bone Grafting of Tuberosity Proximal Humeral Fracture (Left) - Mason Zamora MD Ordered Studies 04/03/21 15:32 CT Abd and Pelvis [CT abd pelvis IV con only] Stat CT head/brain wo con Stat 04/03/21 15:55 CT hip LT wo con Stat 04/03/21 17:12 CT shoulder LT wo con Stat 04/04/21 12:32 US - OR guided needle placemen Routine Hospital Course (1) Left humeral fracture: Attending: Dr. Oakley Impression: This is a 70-year-old female that lives alone. She had a mechanical fall resulting in fracture of left humerus, left acetabulum of hip, and left pubic bone. She came to the emergency room department via ambulance. Now s/p Left reverse total shoulder arthroplasty with Dr. Zamora on 04/04 she is Right hand dominant Doing well post-op with some expected pain but controlled with pain medication and proper adjustment in sling Hemovac drain removed on 04/06 Hgb is now up to 10.4 g/Nivia has dilaudid po for pain as allergy to others. Pain controlled with Ultram. Rx for 50 mg tablets sent to patient's pharmacy. Continue with sling for immobilization, allowed to do passive pendulum like motion of the left shoulder only as per orthopedics Discontinued bowel regimen as patient had loose stools. [id number] bowel regimen at home as needed. CBC with plts>50 and hgb stable, started Lovenox 30mg SQ once daily more for hip fracture/immobility and continue for 2 weeks--> follow CBC q3 days while on this given h/o thrombocytopenia and with pelvic fracture Improved function with PT/OT now recommended for discharge home with home physical therapy. Discharge home today with advantage PT/OT. Thumb spica splint initially noted. Did discuss this with orthopedics and it was due to some pain. Follow-up wrist x-ray done as recommended by Ortho showing no fracture. Thumb spica splint removed but can be used as needed. repeat xray of the left wrist: IMPRESSION: No definite acute fracture or dislocation. Degenerative changes and osteopenia. Orthopedics note reviewed. Patient to follow-up with orthopedics on discharge (2) Acetabulum fracture, left: As above Pain generally controlled with Ultram Weight bearing as tolerated Seen by orthopedics and nonsurgical fracture. Appreciate recommendations Outpatient management by orthopedics (3) Pelvic fracture: As above, fracture of the left inferior pubic ramus that is nondisplaced secondary to fall Seen by orthopedics and will be managed as nonsurgical fracture. Outpatient management with orthopedics (4) Fall: This was a mechanical fall. There is no loss of consciousness. Patient had no dizziness or other contributing factors. Discussion with patient about returning home. She lives alone. Patient agrees to rehab facility on discharge Continue PT at home on discharge (5) Thrombocytopenia: Resolved -platelet count 135,000 secondary to cirrhosis and splenomegaly, chronic for years Platelets stable. We will check repeat labs again tomorrow for stability Imaging reviewed. Ruled out intraabdominal hemorrhage Lovenox (enoxaparin) is recommended for 14 days--we will give final dose tomorrow prior to discharge. (6) Asthma: Generally well controlled Patient has an HFA inhaler as well as nebulizer at home No adventitious sounds on auscultation Her medications include albuterol HFA rescue inhaler, fluticasone 500/salmeterol 50 (Advair) Oxygenating well. No bronchospasm. Most recent pulmonary function testing with spirometry only. This was done 04/27/2019. This reflected mild obstructive airway disease with no restrictive disease FVC 2.55 or 80% of predicted FEV1 1.87 or 76% of predicted FEV1/FVC 73% which is 95% of predicted DLCO is not available Outpatient follow-up with Dr. Casanova (7) Esophageal reflux: Omeprazole at home Continue pantoprazole while inpatient (8) Hypertension: No chest pain or tightness initially losartan was held. This has been resumed Patient with some hypertension with SBP in the 180s. Successfully treated with 5 mg of IV hydralazine which brought SBP down into the high 130s Discharge home on losartan 100 mg p.o. daily and amlodipine 5 mg p.o. daily EKG interpretation by Dr. 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 Abnormal ECG When compared with ECG of 03-OCT-2006 07:45, Anteroseptal infarct is now Present Inferior infarct is now Present No indication as to when this may have changed since September 2006 No current evidence of ACS No known cardiac history and no angina Troponin is negative Follow-up with cardiology recommended on discharge (9) Hyperlipidemia: Continue atorvastatin 10 mg daily-consider increasing to high intensity given known mesenteric artery stenosis-defer to PCP (10) Hypothyroidism: Continue levothyroxine 100 mcg daily TSH normal in 10/2020 (11) Diabetes mellitus, type II: Diet controlled No medications or insulin use at home Hemoglobin A1c 5.5% NovoLog sliding scale insulin while inpatient--blood sugars have been well controlled. Okay to DC blood sugar monitoring at this time No further indication for NovoLog sliding scale (12) Hepatic cirrhosis: No history of alcohol abuse With thrombocytopenia Coagulation factors within normal limits INR 1.2 Outpatient management (13) Vascular disease: Mesenteric stenosis Continue statin should be on ASA but likely not given thrombocytopenia--> defer to PCP (14) DVT prophylaxis: on Lovenox 30mg SQ once daily x 2 weeks-we will give last dose tomorrow prior to discharge GUILLERMINA avalos/Harriet Dispo-discharge home with home physical therapy Total Time Total Time Spent Total Time Spent (In Minutes): 40 minutes Discharge Plan Discharge Items Patient Disposition: Home - Home Health Services Reason For Visit: FALL Discharge Diagnosis: Fall with broken humerus and acetabulum Activity: As commented below Activity Comment: Per physical therapy and orthopedics Lifting: Gradually increase as tolerated Bathing Comment: Okay to shower. Do not immerse surgical sites in bath water, hot tub Exercise/Sports: Gradually increase as tolerated Exercise Comment: Per orthopedics Driving/Machine Use: Until cleared by orthopedics Weightbearing: Full weightbearing Non-emergency contact: Surgeon Call non-emergency contact if: your pain is not controlled, your temperature is above 101.5, your wound has increased redness and your wound has increased drainage Follow-up/Referrals: Piyush Casanova MD [Primary Care Provider] - 04/22/21 9:30 am (APPT WITH [facility] HELMS) Mason Zamora MD [Surgeon] - 04/19/21 11:45 am (APPT WITH EVELYN HANSEN) Diet: Heart Healthy Addtl Attending Provider Instructions: Things to Watch Out For -Go to the Emergency Room if you have sudden onset of chest pain, shortness of breath, or uncontrollable pain. -Call the orthopedics clinic immediately if you have a sudden increase in the amount of wound drainage or the drainage becomes thick, yellow or green, or foul-smelling. -For routine questions regarding your shoulder surgery, call the orthopedics clinic at [phone] during regular business hours (8am-5pm). For urgent issues after regular business hours, you may call the clinic to be connected to the on-call physician. Follow Up -Follow-up in orthopedics clinic with Dr. Zamora 10 to 14 days after surgery. Please call [facility] at [phone] to make an appointment. Dressings -Keep your dressings clean, dry, and in place for 4 days. After 4 days, you may remove the dressing and cover the incision with a new clean dressing. Be sure to wash your hands thoroughly before touching your incisions. Apply a new dressing daily thereafter. -You may begin showering after your first dressing change (4 days after surgery). You may let the water run BRIEFLY over the incision, but do not soak the incision in the bathtub or pool for 2 weeks. You may also gently clean the incision with mild soap and water; pat the incision dry after cleaning-do not rub the incision. -You may use an antibiotic ointment (Bacitracin, Polysporin) if desired, but this is not necessary. Shoulder Exercises -Keep your operative shoulder in the sling for comfort, except as detailed below. -You should come out of the sling 4-5 times a day for passive pendulum exercises: lean over and swing your arm in a circular pattern. -Do not flex your elbow (curl motion) or supinate your forearm (rotating palm up) against resistance. -Do not use your arm to push yourself up out of bed or up from a seated position. -Do not externally rotate your arm past neutral rotation (forearm pointed straight out from your body) or internally rotate your arm (pull your forearm towards your body) against resistance. Do not abduct your shoulder past 90 degrees (bring your arm out to the side past shoulder level). Ice Pack -You may use an ice pack for pain relief. You should use it 20-30 minutes at a time. Place a towel between the ice pack and your skin to prevent frostbite. -You should use the ice pack fairly regularly for the first 1-2 weeks after surgery to help reduce pain and inflammation. -About 2 weeks after your surgery, you should start using heat to loosen up your shoulder prior to doing your stretching exercises, then use the cooling sleeve after your exercises are complete to reduce swelling and pain. Pending Studies at Discharge: No Stand-Alone Forms: [facility] [employer] Medications and DC Order Prescriptions: New tramadol 50 mg Tablet 50 mg PO Q4H PRN (Reason: pain) Qty: 30 RF: 0 amlodipine [Norvasc] 5 mg tablet 5 mg PO DAILY Qty: 30 RF: 0 Continued albuterol sulfate [Ventolin HFA] 90 mcg/actuation HFA aerosol inhaler 2 puff INH Q6H PRN (Reason: shortness of breath or wheezing) Qty: 8.5 RF: 3 atorvastatin 10 mg tablet 10 mg PO QPM Qty: 90 RF: 3 fluticasone propion-salmeterol [Advair Diskus] 500-50 mcg/dose blister with device 1 inh INH BID Qty: 3 RF: 3 losartan 100 mg tablet 100 mg PO QAM Qty: 90 RF: 3 omeprazole 20 mg capsule,delayed release(DR/EC) 20 mg PO QAM Qty: 90 RF: 3 levothyroxine 100 mcg capsule 100 mcg PO QAM Qty: 90 RF: 3 paroxetine HCl 20 mg tablet 20 mg PO HS Qty: 90 RF: 3 Centrum Silver Women 8 mg iron-400 mcg-300 mcg Tablet 1 tab PO 1200 RF: 0 Discontinued docusate sodium 100 mg Tablet 100 mg PO BID RF: 0 Discharge Orders: Discharge Order (Routine); Ordered 04/18/21 Ordered By: Salomón Cavazos/Other Patient Handouts: Resources for People with Diabetes, Fall Prevention Assessing Risk, Exercises to Prevent Falls Admission Data Admit Date/Time: 04/03/21 17:53 Attending Provider: Deonte Oakley Admit Provider: Brandon Cadena Primary Care Provider: Piyush Casanova Other Providers: Mason Zamora ; [facility] ; [place] ; [facility] ; Everton Seaman. Other Interventions: Discharge Summary Assessment (RN) Last Done: 04/18/21 12:41 Supervising Physician Co-Signing Physician Notes Patient seen and examined at bedside. I discussed discharge planning with APC and patient. Obtained and reviewed hospital course with patient and obtained a physical exam. I reviewed above note and agree with it. Patient admitted for a humeral fracture and will followup with ortho as an outpatient. Coding Level of Care Code D/C DAY MANAGEMENT >30 MINS Diagnoses Left humeral fracture S42.302A Encounter type: initial encounter Fracture alignment: displaced Fracture type: closed Humerus Location: proximal Acetabulum fracture, left S32.415A Encounter type: initial encounter Fracture alignment: nondisplaced Fracture type: closed Sublocation of acetabulum: anterior wall Pelvic fracture S32.9XXA Fall W19.XXXA Encounter type: initial encounter Thrombocytopenia D69.6 Asthma J45.909 Esophageal reflux K21.9 Hypertension I10 Hyperlipidemia E78.5 Hypothyroidism E03.9 Diabetes mellitus, type II E11.9 Hepatic cirrhosis K74.60 Vascular disease I99.9 DVT prophylaxis Z29.9 Time Spent (min) 40 Home Health Attestation I certify that this patient is under my care and that I, or a physicians email marketing assistant working with me, had a face to-face encounter that meets the home health [id number] encounter requirements with this patient. The encounter with the patient was in whole, or in part, for the following medical condition, which is the primary reason for home health care (list medical condition): PT, OT; sp TSA, pelvic fracture I certify that, based on my findings, the following services are medically necessary home health services: My clinical findings support the need for the above services because: OT Assess ADL Status and Restore Function w ADLs PT Assessment for Endurance / Balance / Strength PT Eval for Safety and Mobility PT Eval for Safety, Gait Training, Assistive Devices PT Gait and Balance Training, Strengthening and Safety Further, I certify that my clinical findings support that this patient is homebound (i.e. absences from home require considerable and taxing effort and are for medical reasons or mormonism services or infrequently or of short duration when for other reasons) because: Supportive Aid - Walker Certification for Home Health Services: Based on the above findings, I certify that this patient is confined to the home and needs intermittent group home care, physical therapy and/or speech therapy or continues to need occupational therapy. The patient is under my care, and I have initiated the establishment of the plan of care. This patient will be followed by a physician who will periodically review the plan of care.
== END 2021-04-18 13:45 | disposition home health service (06) | DRG 483 ==
LOC: ED 13:46 → 3N 17:53 → SUATTDRO 17:53 → 3N 18:38